=== PATIENT | male | born 1950 | race African-American/Black ===

== ENCOUNTER 2017-12-21 01:17 | Inpatient (IN) | payer MEDICARE, MEDICAID ==
[~2017-12-21] VITALS: Ht 167.6 cm; Wt 65.0 kg
[2017-12-21] VITALS (7 sets, daily range): BP systolic 117–151; BP diastolic 59–75; PULSE 74–90; RESP 16–18; TEMP 97.7–99.1; O2SAT 96–100
[~2017-12-21 01:17] MED LIST: AMIT150T PO; BLOOD GLUCOSE T1 TES; BRIL90TA PO; CARV12.52 PO; FREEMIS42; FURO40TA PO; GABA300C5 PO; Glucometer; HYDR-3533 PO; INSU-115; INSU100V SQ; LANTUS2P SQ; LISI-515 PO; PRAV40TA2 PO; [UNRECOGNIZED DRUG - OTHER]
[2017-12-21] MEDS ORDERED: PANTOPRAZOLE INJ 80 MG in SODIUM CHLORIDE 0.9% INJ 35 ML IV ONE (01:45)
[2017-12-21] MEDS ORDERED: SODIUM CHLOR 0.9% 1000 ML INJ 1,000 ML IV SCH (01:45)
[2017-12-21] MEDS ORDERED: PANTOPRAZOLE INJ 80 MG in SODIUM CHLORIDE 0.9% INJ 100 ML IV SCH (01:45)
--- NOTE | 2017-12-21 01:45 | PD ---
HPI Chief Complaint: Chest Pain Time Seen by Provider: 01:38 Travel History International Travel<30 days: Yes ([place]) Contact w/Intl Traveler<30days: Yes Name of Country Traveled to: [place] Traveled to known affect area: No History of Present Illness HPI The patient is a 67 year old male who presents to the [facility] emergency department with a history of diarrhea and abdominal cramping that began on Tuesday. Today he began to have bloody stool. He has had at least 6 episodes of bloody stool. The patient reports taking Brilinta related to a history of coronary artery disease and congestive heart failure. The patient has a poor appetite associated with this. The patient reports having intermittent nausea and vomiting reportedly twice during the entire episode with the last episode of vomiting yesterday morning. He denies having any known fevers. He reports having chronic intermittent chest pain that is been no worse than usual. He denies having any shortness of breath. He denies having any significant cough or congestion. He denies having any sick contacts or recent antibiotic use. He traveled from [facility] yesterday. He denies having any urinary symptoms or neurologic symptoms. The patient's blood sugar has been difficult to control according to his family and has been as high as in the 500s-600s. He is reportedly on insulin. [facility] Past Medical History Narrative Medical The patient's past medical history is significant for diabetes mellitus, coronary artery disease, legal blindness, acid reflux, hyperlipidemia, congestive heart failure, hypertension. Cardiac Catheterization: Yes High Cholesterol: Yes Congestive Heart Failure: Yes Diabetes: Yes Patient Takes Glucophage: No Diminished Hearing: No GERD: Yes Hypertension: Yes Tetanus Vaccination: Unknown Influenza Vaccination: No Past Surgical History Narrative Surgical The patient's past surgical history is significant for having a cyst removed from his abdomen, he is unsure of where the cyst was, history of cardiac catheterization with stent placement, coronary artery bypass grafting. Abdominal Surgery: Yes (cyst removed) Coronary Artery Bypass Graft: Yes Coronary Stent: Yes Social History Alcohol Use: No Tobacco Use: No Substance Use: No Allergies-Medications (Allergen,Severity, Reaction): Coded Allergies: No Known Allergies (Unverified Allergy, Unknown, 12/21/17) Reported Meds & Prescriptions Reported Meds & Active Scripts Active Carvedilol 12.5 Mg Tab 12.5 Mg PO BID Gabapentin 300 Mg Cap 300 Mg PO BID Lisinopril 20 Mg Tab 20 Mg PO BID Lantus Inj (Insulin Glargine) 1,000 Unit/10 Ml Vial 30 Units SQ HS Reported Novolog Mix 70-30 FlexPen Inj (Insulin Aspart Protam-Asp 70-30 Inj) 300 Unit/3 Ml Pen 1 Units SQ Amitriptyline (Amitriptyline HCl) 150 Mg Tab 150 Mg PO HS Pravastatin 40 Mg Tab 40 Mg PO DAILY Furosemide 40 Mg Tab 40 Mg PO DAILY Brilinta (Ticagrelor) 90 Mg Tab 90 Mg PO BID Review of Systems Except as stated in HPI: all other systems reviewed are Neg General / Constitutional: No: Fever Eyes: No: Visual changes HENT: No: Headaches Cardiovascular: Positive: Chest Pain or Discomfort (Which his family reports is chronic), Dyspnea on exertion (Which his family reports is chronic) Respiratory: No: Shortness of Breath Gastrointestinal: Positive: Nausea, Vomiting, Diarrhea, Abdominal Pain, Hematochezia, Changes in Bowel Habits, Indigestion, Loss of Appetite, No: Hematemesis Genitourinary: No: Dysuria Musculoskeletal: No: Pain Skin: No Rash Neurologic: No: Weakness Psychiatric: No: Depression Endocrine: No: Polydipsia Hematologic/Lymphatic: No: Easy Bruising Physical Exam Narrative General: The patient is a well-developed well-nourished male in no acute distress. Head and Neck exam: Head is normocephalic atraumatic. Eyes: The patient is noted to have cataract overlying the right pupil. The patient is legally blind. Nose: Midline septum with pink mucous membranes Mouth: Dentition unremarkable. Moist mucus membranes. Posterior oropharynx is not erythematous. No tonsillar hypertrophy. Uvula midline. Airway patent. Neck: No palpable lymphadenopathy. No nuchal rigidity. No thyromegaly. Cardiovascular: Regular rate and rhythm without murmurs, gallops, or rubs. Lungs: Clear to auscultation bilaterally. No wheezes, rhonchi, or rales. Abdomen: Soft, with tenderness on palpation diffusely, however he reports that it is most prominent in the left lower quadrant of the abdomen. No point tenderness on palpation of her McBurney's point. Normal bowel sounds are audible. Negative Wheeler sign. No guarding, rebound, or rigidity. Extremities: No clubbing, cyanosis, or edema. 2+ pulses in all 4 extremities. No calf tenderness on palpation. Back: No costovertebral angle tenderness to palpation. Neurologic Exam: Grossly nonfocal. Skin Exam: No rash noted. Intact skin that is warm and dry. RECTAL EXAM: No masses or tenderness, stool is brown and mixed with blood. The Hemoccult testing was positive. Data Data Last Documented VS Vital Signs Date Time Temp Pulse Resp B/P (MAP) Pulse Ox O2 Delivery O2 Flow Rate FiO2 12/21/17 02:04 79 Room Air 12/21/17 01:23 99.1 18 123/59 (80) 98 Orders Orders Electrocardiogram (12/21/17 01:38) Complete Blood Count With Diff (12/21/17 01:38) Comprehensive Metabolic Panel (12/21/17 01:38) Creatine Kinase (Cpk) (12/21/17 01:38) Ckmb (Isoenzyme) Profile (12/21/17 01:38) Troponin I (12/21/17 01:38) B-Type Natriuretic Peptide (12/21/17 01:38) Prothrombin Time / Inr (Pt) (12/21/17 01:38) Act Partial Throm Time (Ptt) (12/21/17 01:38) Lipase (12/21/17 01:38) Urinalysis - C+S If Indicated (12/21/17 01:38) Magnesium (Mg) (12/21/17 01:38) Chest, Single Ap (12/21/17 01:38) Iv Access Insert/Monitor (12/21/17 01:38) Ecg Monitoring (12/21/17 01:38) Oximetry (12/21/17 01:38) Type And Screen (12/21/17 01:38) Pantoprazole Inj (Protonix Inj) (12/21/17 01:45) Pantoprazole Inj (Protonix Inj) (12/21/17 01:45) Sodium Chlor 0.9% 1000 Ml Inj (Ns 1000 M (12/21/17 01:45) Enteric Path (Stool) (12/21/17 03:26) C Diff Toxin Pcr (12/21/17 03:26) Stool Wbc (Leukocytes) (12/21/17 03:26) Piperacil-Tazo 3.375 Gm Premix (Zosyn 3. (12/21/17 03:30) Ct Abd/Pel W/O Iv Contrast (12/21/17 03:28) Lactic Acid Sepsis Protocol (12/21/17 03:44) Morphine Inj (Morphine Inj) (12/21/17 04:30) Prochlorperazine Inj (Compazine Inj) (12/21/17 04:30) Sodium Chlorid 0.9% 500 Ml Inj (Ns 500 M (12/21/17 04:30) Blood Culture (12/21/17 04:48) Potassium Chloride (Kcl) (12/21/17 05:45) Metronidazole 500 Mg Inj (Flagyl 500 Mg (12/21/17 06:45) Admit Order (Ed Use Only) (12/21/17 06:45) Admit To Inpatient (12/21/17 ) Vital Signs (Adult) Q4H (12/21/17 06:43) Activity Oob With Assistance (12/21/17 06:43) Diet Clear Liquid (12/21/17 Breakfast) Sodium Chlor 0.9% 1000 Ml Inj (Ns 1000 M (12/21/17 06:43) Sodium Chloride 0.9% Flush (Ns Flush) (12/21/17 06:45) Sodium Chloride 0.9% Flush (Ns Flush) (12/21/17 09:00) Acetaminophen (Tylenol) (12/21/17 06:45) Resp Oxygen Fabio C Titrat 1-4 L (12/21/17 ) Scd Bilateral/Knee High LILLIANA.BID (12/21/17 06:43) Naloxone Inj (Narcan Inj) (12/21/17 06:45) Magnesium Hydroxide Liq (Milk Of Magnesi (12/21/17 06:45) Sennosides (Senokot) (12/21/17 06:45) Bisacodyl Supp (Dulcolax Supp) (12/21/17 06:45) Lactulose Liq (Lactulose Liq) (12/21/17 06:45) Inpatient Certification (12/21/17 ) Cryptosporidium (Stool) (12/21/17 06:43) Giardia Antigen (Stool) (12/21/17 06:43) Rotavirus Ag Detection (Stool) (12/21/17 06:43) Stool Ova And Parasite Screen (12/21/17 06:43) Stool Wbc (Leukocytes) (12/21/17 06:43) Ondansetron Odt (Zofran Odt) (12/21/17 07:00) Labs Laboratory Tests Test 12/21/17 02:00 12/21/17 04:30 White Blood Count 9.0 TH/MM3 Red Blood Count 4.51 MIL/MM3 Hemoglobin 12.7 GM/DL Hematocrit 37.5 % Mean Corpuscular Volume 83.1 FL Mean Corpuscular Hemoglobin 28.2 PG Mean Corpuscular Hemoglobin Concent 33.9 % Red Cell Distribution Width 14.1 % Platelet Count 223 TH/MM3 Mean Platelet Volume 9.6 FL CBC Comment AUTO DIFF Differential Total Cells Counted 100 Neutrophils % (Manual) 7 % Band Neutrophils % 26 % Lymphocytes % 40 % Monocytes % 20 % Eosinophils % 3 % Basophils % 2 % Neutrophils # (Manual) 3.2 TH/MM3 Metamyelocytes 2 % Nucleated Red Blood Cells 1 /100 WBC Differential Comment FINAL DIFF MANUAL Atypical Lymphocytes % Toxic Granulation 1+ Dohle Bodies PRESENT Platelet Estimate NORMAL Platelet Morphology Comment NORMAL Red Cell Morphology Comment NORMAL Prothrombin Time 10.4 SEC Prothromb Time International Ratio 1.0 RATIO Activated Partial Thromboplast Time 32.0 SEC Blood Urea Nitrogen 35 MG/DL Creatinine 2.86 MG/DL Random Glucose 159 MG/DL Total Protein 6.6 GM/DL Albumin 2.6 GM/DL Calcium Level 7.8 MG/DL Magnesium Level 2.2 MG/DL Alkaline Phosphatase 84 U/L Aspartate Amino Transf (AST/SGOT) 15 U/L Alanine Aminotransferase (ALT/SGPT) 20 U/L Total Bilirubin 0.7 MG/DL Sodium Level 134 MEQ/L Potassium Level 3.2 MEQ/L Chloride Level 104 MEQ/L Carbon Dioxide Level 18.9 MEQ/L Anion Gap 11 MEQ/L Estimat Glomerular Filtration Rate 27 ML/MIN Total Creatine Kinase 62 U/L Troponin I LESS THAN 0.02 NG/ML B-Type Natriuretic Peptide 46 PG/ML Lipase 23 U/L Lactic Acid Level 1.6 mmol/L MDM Medical Decision Making Medical Screen Exam Complete: Yes Emergency Medical Condition: Yes Medical Record Reviewed: Yes Differential Diagnosis Ischemic bowel, versus infectious colitis, versus diverticulitis, versus DKA, versus diverticulosis, versus AVM malformation, versus hemorrhoid Narrative Course During the course of the patient's emergency department visit, the patient's history, examination, and differential diagnosis were reviewed with the patient. The patient was placed on a security monitor with oximetry and frequent blood pressure monitoring. The patient had IV access obtained and blood work sent for analysis. The patient had a EKG done on arrival. The patient's EKG shows a sinus rhythm heart rate of 80, QRS duration 89 ms, QTC 458 ms. The patient has left axis deviation noted. T-wave inversions in lead I, aVL. No acute ST segment elevation is noted. The patient was initially provided normal saline IV fluids, Protonix 80 mg IV followed by a Protonix drip. Due to a concern about an infectious process the patient was given Zosyn 3.375 g IV. The lactic acid was sent prior to antibiotics being administered, and blood cultures were also done. Stool studies were ordered. The patient's studies were reviewed and remarkable for A white count of 9, hemoglobin 12.7, platelets 223 with bands that are 26, monocytes 20, toxic granulation present. CMP is remarkable for a sodium of 134, potassium 3.2 which was supplemented orally, CO2 18.9, BUN 35, creatinine 2.86 which may be related to dehydration, no prior renal studies are available for comparison, glucose 159, cardiac enzymes within normal limits, BNP 46, lipase 23, count lactic acid 1.6, PT 10.4, PTT 32. The chest x-ray showed no evidence of acute cardiopulmonary disease. CT scan of the abdomen and pelvis shows nonspecific nonobstructive bowel gas pattern. There is circumferential wall thickening involving portions of the transverse colon which could indicate colitis. Cholelithiasis with no gallbladder wall thickening or inflammatory changes noted. Given the colitis on CAT scan Flagyl was also added to the patient's antibiotic regimen. The patient's results were discussed with the patient, including the plan of care. I explained that further testing and/ or monitoring is indicated based on the patient's history, examination, and/ or laboratory findings. Therefore, I recommended admission for additional evaluation. The patient expressed understanding and was agreeable with this plan. The patient was admitted to the hospital in guarded condition and sent to a bed under the care of the [facility]. [facility] Point of Care Internal Pos. & Neg. Controls: Passed Fecal Specimen Occult Blood: Positive Physician Communication Physician Communication The patient's case including history, pertinent physical examination findings, and laboratory studies were discussed with Dr. Enciso. It was agreed that the patient would be admitted to the [facility]. Diagnosis Primary Impression: Colitis Admitting Information Admitting Physician Requests: Admit Joanie Garcia MD December 21, 2017 01:45
--- NOTE | 2017-12-21 02:30 | RADRPT ---
EXAM DATE: 12/21/2017 2:21 AM EDT AGE/SEX: 67 years / Male INDICATIONS: Chest pain. CLINICAL DATA: This is the patient's initial encounter. Patient reports that signs and symptoms have been present for 1 day and indicates a pain score of 5/10. MEDICAL/SURGICAL HISTORY: Cardiovascular disease. CABG. COMPARISON: No prior [facility] exams available for comparison. FINDINGS: A single AP view of the chest demonstrates the lungs to be symmetrically aerated without evidence of mass, infiltrate or effusion. The cardiomediastinal contours are unremarkable. Osseous structures a re status post median sternotomy. CONCLUSION: No acute cardiopulmonary disease. Electronically signed by: Matthew Avalos MD 12/21/2017 2:29 AM EDT
[2017-12-21 02:45] LABS: HEMATOCRIT 37.5 % (39.0-51.0); HEMOGLOBIN 12.7 GM/DL (13.0-17.0); MEAN CELL VOLUME 83.1 FL (80.0-100.0); MEAN CORPUSCULAR HEMOGLOBIN 28.2 PG (27.0-34.0); MEAN CORPUSCULAR HGB CONC 33.9 % (32.0-36.0); MEAN PLATELET VOLUME 9.6 FL (7.0-11.0); PLATELET COUNT 223 TH/MM3 (150-450); RED BLOOD COUNT 4.51 MIL/MM3 (4.50-5.90); RED CELL DISTRIBUTION WIDTH 14.1 % (11.6-17.2)
[2017-12-21 02:52] LABS: PROTHROMBIN TIME - PATIENT 10.4 SEC (9.8-11.6)
[2017-12-21 03:04] LABS: ALBUMIN 2.6 GM/DL (3.4-5.0); AST (GOT) 15 U/L (15-37); BICARBONATE 18.9 MEQ/L (21.0-32.0); BLOOD UREA NITROGEN 35 MG/DL (7-18); CALCIUM 7.8 MG/DL (8.5-10.1); CHLORIDE 104 MEQ/L (98-107); CREATININE 2.86 MG/DL (0.60-1.30); GLOMERULAR FILTRATION RATE 27 ML/MIN (>89); GLUCOSE,RANDOM 159 MG/DL (74-106); MAGNESIUM 2.2 MG/DL (1.5-2.5); SODIUM (NA) 134 MEQ/L (136-145)
[2017-12-21 03:11] LABS: ALKALINE PHOSPHATASE 84 U/L (45-117); ALT (GPT) 20 U/L (12-78); TOTAL BILIRUBIN ADULT 0.7 MG/DL (0.2-1.0); TOTAL PROTEIN 6.6 GM/DL (6.4-8.2); TROPONIN I LESS THAN 0.02 NG/ML (0.02-0.05)
[2017-12-21] MEDS ORDERED: NOVOINJ2 SQ (03:14)
[2017-12-21] MEDS ORDERED: PIPERACIL-TAZO 3.375 GM PREMIX 50 ML IV ONE (03:30)
[2017-12-21 03:33] LABS: BANDS 26 % (0-6); BASOPHILS 2 % (0-2); CORRECTED NUCLEATED RBC 1 /100 WBC (0-0); LYMPHOCYTES 40 % (9-44); METAMYELOCYTES 2 % (0-1); MONOCYTES 20 % (0-8); NEUTROPHIL # MANUAL DIFF 3.2 TH/MM3 (1.8-7.7); NUCLEATED RED BLOOD CELL 1 (0-0); POLYS (SEG NEUTROPHILS) 7 % (16-70)
[2017-12-21 03:34] LABS: DOHLE BODIES PRESENT (NONE SEEN); TOXIC GRANULATION 1+ (NORMAL)
[2017-12-21] MEDS ORDERED: PROCHLORPERAZINE INJ 10 MG/2 ML VIAL IV PUSH ONE (04:30)
[2017-12-21] MEDS ORDERED: MORPHINE SULFATE 4 MG/ML INJ IV PUSH ONE (04:30)
[2017-12-21] MEDS ORDERED: SODIUM CHLORID 0.9% 500 ML INJ 500 ML IV ONE (04:30)
[2017-12-21] MEDS ORDERED: POTASSIUM CHLORIDE 20 MEQ CONTROLLED RELEASE TAB PO ONE ×2 (05:45→10:15)
--- NOTE | 2017-12-21 06:35 | RADRPT ---
EXAM DATE: 12/21/2017 4:34 AM EDT AGE/SEX: 67 years / Male INDICATIONS: Abdomen pain. CLINICAL DATA: This is the patient's initial encounter. Patient reports that signs and symptoms have been present for 1 day and indicates a pain score of 5/10. MEDICAL/SURGICAL HISTORY: Hypertension. Congestive heart failure. Cardiovascular disease. Non e. RADIATION DOSE: 7.11 CTDI (mGy) COMPARISON: No prior [facility] exams available for comparison. TECHNIQUE: Multiple contiguous axial images were obtained through the abdomen. Images were obtained using multiple row detector helical technique. Using dose reduction techniques, radiation dose was ke pt as low as reasonably achievable to obtain optimal diagnostic quality images. FINDINGS: Lower Lungs: The visualized lower lungs are clear. Status post median sternotomy. Liver: The liver has a homogeneous density without space-occupying lesion. There is no dilation of th e biliary tree. There are faint calcified gallstones layering dependently in the gallbladder. There i s no gallbladder wall thickening or inflammatory change. Spleen: Homogeneous density without enlargement. Pancreas: Unremarkable without mass or calcification. Kidneys: Normal in size and shape. No evidence of mass or hydronephrosis. Adrenal Glands: Unremarkable. Aorta: The aorta and proximal iliac vessels are grossly unremarkable without aneurysmal dilation. Bowel/Mesentery: No oral contrast was given limiting the sensitivity of the exam. There are multiple loops of nondilated air-containing small bowel with several small air-fluid levels. There is apparent circumferential wall thickening involving portions of the transverse colon which measure up to appro ximately 1 cm in greatest diameter. There is no free air or fluid. Abdominal Wall: Intact. Retroperitoneum: No evidence of adenopathy in the retrocrural, para-aortic, or deep pelvic regions. Bladder: Contours are smooth. Reproductive Organs: No abnormal masses or calcifications seen. Inguinal: The inguinal region is unremarkable without evidence of adenopathy. Bony Structures: Unremarkable. CONCLUSION: 1. Nonspecific, nonobstructive bowel gas pattern. There is circumferential wall thickening involving portions of the transverse colon which could indicate colitis. 2. Cholelithiasis with no gallbladder wall thickening or inflammatory change. Electronically signed by: Matthew Avalos MD 12/21/2017 6:33 AM EDT
[2017-12-21] MEDS: SODIUM CHLOR 0.9% 1000 ML INJ 1,000 ML IV SCH ×2 (06:43→16:12)
[2017-12-21] MEDS ORDERED: SENNOSIDES 8.6 MG TAB PO PRN (06:45)
[2017-12-21] MEDS ORDERED: BISACODYL 10 MG SUPP RECTAL PRN (06:45)
[2017-12-21] MEDS ORDERED: SODIUM CHLORIDE 0.9% FLUSH 10 ML FLUSH IV FLUSH PRN (06:45)
[2017-12-21] MEDS ORDERED: LACTULOSE SYRUP 20 GM/30 ML CUP PO PRN (06:45)
[2017-12-21] MEDS ORDERED: metroNIDAZOLE 500 MG INJ 100 ML IV ONE (06:45)
[2017-12-21] MEDS ORDERED: NALOXONE HCL 0.4 MG/ML AMP IV PUSH PRN ×2 (06:45→10:00)
[2017-12-21] MEDS ORDERED: MAGNESIUM HYDROXIDE SUSP 30 ML CUP PO PRN (06:45)
[2017-12-21] MEDS ORDERED: ONDANSETRON ODT 4 MG TAB PO PRN (07:00)
[2017-12-21] MEDS: SODIUM CHLORIDE 0.9% FLUSH 10 ML FLUSH IV FLUSH SCH ×2 (08:54→22:12)
[2017-12-21 09:05] LABS: BACTERIA, URINE RARE /hpf; BILIRUBIN, URINE NEG (NEG); BLOOD, URINE TRACE (NEG); GLUCOSE,URINE TRACE mg/dL (NEG); HYALINE CAST, URINE 5 /lpf (RARE); KETONE, URINE NEG (NEG); NITRITE,URINE NEG (NEG); PH, URINE 5.5 (5.0-8.5); SQUAMOUS EPITHELIAL CELL URINE 1 /hpf (0-5); URINE COLOR YELLOW (YELLW/STRAW); URINE LEUKOCYTE ESTERASE NEG (NEG)
--- NOTE | 2017-12-21 09:32 | HHI.HP ---
[facility] Service Family Medicine Primary Care Physician Gareth Tello MD Admission Diagnosis Colitis Diagnoses: International Travel<30 Days: Yes ([place]) Contact w/Intl Traveler<30days: Yes Name of Country Traveled to: [facility] Known Affected Area: No History of Present Illness This is a pleasant 67-year-old male from [facility] with past medical history of dilated cardiomyopathy, CABG in 2016, PVD, hypertension, DM, and hyperlipidemia presents to the ED for lower abdominal pain and diarrhea. Accompanied by son and daughter, who provides most of the history. Reports that patient recently traveled back from [facility] yesterday. States that patient started getting sick while he was in [facility]. Patient states that he started having chest pain last Tuesday, 5 days ago. He describes it as aching, intermittent, lasting 5-10 mintues, located right, radiating to both arms. He denies jaw pain, palpitations, and shortness of breath. He states that this chest pain is not similar to his AR in the past. Patient also started having diarrhea 4 days ago. He reports greater than 3-4 bowel movements with gross dark blood. Associated with intermittent, 8/10, generalized abdominal pain. Describes it as "gas-like pain and cramping", relieved with passing gas. He also endorses nausea and 2 episodes nonbloody, nonbilious vomiting. Appetite has been decreased. Patient is able to tolerate soup and water. He denies sick contacts , weight loss, fevers, recent antibiotic use, dysuria, rash, headaches, and URI symptoms. Patient states that he does have never had a colonoscopy done. Patient reports being compliant with all his medications. Daughter reports that his sugars were in the 500s 3 days ago. Patient is currently on insulin. (Rachell Branham MD R1) History of Present Illness Very pleasant 67-year-old male who presents to the hospital with 4 days of abdominal distention/cramping abdominal pain, diarrhea and bloody bowel movements. He has been in [facility] for the last 6-7 months, returning to [place] 2 days ago. While in [facility], 4 days ago he began having cramping abdominal pain followed by watery diarrhea that turned bloody with what is described as bright red blood. There was associated nausea and bloating with this, however he specifically denies fevers or chills, denies appetite change, denies weight change, denies recent antibiotic use, and denies melena. He also denies any new foods or changes in his diet, he denies any sick contacts, he denies any travel outside of [facility] or [place]. (Gareth Tello MD) Review of Systems Constitutional: COMPLAINS OF: Chills, Change in appetite, DENIES: Fever Eyes: DENIES: Vision loss Ears, nose, mouth, throat: DENIES: Throat pain, Running Nose Respiratory: DENIES: Cough, Sputum production, Shortness of breath Cardiovascular: COMPLAINS OF: Chest pain, Syncope, DENIES: Palpitations, Lower Extremity Edema Gastrointestinal: COMPLAINS OF: Abdominal pain, Bloody stools, Diarrhea, Nausea , Vomiting Genitourinary: DENIES: Dysuria Musculoskeletal: COMPLAINS OF: Muscle aches Integumentary: DENIES: Rash Hematologic/lymphatic: DENIES: Lymphadenopathy Neurologic: DENIES: Headache (Rachell Branham MD R1) Past Family Social History Past Medical History CAD with dilated cardiomyopathy Peripheral Vascular Disease Hypertension Diabetes Mellitus Hyperlipidemia Claudication Past Surgical History CABG - 2016 with KAMINSKI to LAD, SVG to diagonal, SVG to intramyocardial obtuse marginal, SVG to posterior descending Cardiac catheterization with stent placement x4 Peripheral angiogram with stent placement in both legs for claudication 2-D echocardiogram 01/01/16: Moderately reduced LV function with EF approximately 30-35%. Stage IV diastolic dysfunction. Mild mitral, tricuspid, and pulmonic valve regurgitation. Mild pulmonary hypertension with RVSP estimated at 51 mmHg. (Rachell Branham MD R1) Allergies: Coded Allergies: No Known Allergies (Unverified Allergy, Unknown, 12/21/17) Family History Father: no significant history Mother: no significant history Siblings: none Children: healthy Social History Work history: unemployed, care for by children Tobacco: Never smoker Alcohol: None Illicit drug use: none (Rachell Branham MD R1) Physical Exam Vital Signs Vital Signs Date Time Temp Pulse Resp B/P (MAP) Pulse Ox O2 Delivery O2 Flow Rate FiO2 12/21/17 08:00 90 16 131/74 (93) 97 Room Air 12/21/17 07:27 79 17 117/62 (80) 99 Room Air 12/21/17 02:04 79 Room Air 12/21/17 01:23 99.1 82 18 123/59 80 98 Physical Exam GENERAL: Pleasant male, fatigue, in no acute distress SKIN: No rashes, ecchymoses or lesions. Cool and dry. HEAD: Atraumatic. Normocephalic. No temporal or scalp tenderness. EYES: Pupils equal round and reactive. Pale or conjunctivae noted extraocular motions intact. No scleral icterus. No injection or drainage. ENT: Nose without bleeding, purulent drainage or septal hematoma. Throat without erythema, tonsillar hypertrophy or exudate. Uvula midline. Airway patent. NECK: Trachea midline. No JVD or lymphadenopathy. Supple, nontender, no meningeal signs. CARDIOVASCULAR: Regular rate and rhythm without murmurs, gallops, or rubs. RESPIRATORY: Clear to auscultation. Breath sounds equal bilaterally. No wheezes , rales, or rhonchi. GASTROINTESTINAL: Abdomen soft, moderately distended, moderate tenderness to lower quadrant. No hepato-splenomegaly, or palpable masses. No guarding. No rebound tenderness. Normal bowel sounds. Negative McBurney's and Wheeler's sign. MUSCULOSKELETAL: Extremities without clubbing, cyanosis, or edema. No joint tenderness, effusion, or edema noted. No calf tenderness. Negative Homans sign bilaterally. NEUROLOGICAL: Awake and alert. Cranial nerves II through XII intact. Motor and sensory grossly within normal limits. Five out of 5 muscle strength in all muscle groups. Normal speech. Laboratory Laboratory Tests Test 12/21/17 02:00 12/21/17 04:30 12/21/17 08:45 White Blood Count 9.0 Red Blood Count 4.51 Hemoglobin 12.7 Hematocrit 37.5 Mean Corpuscular Volume 83.1 Mean Corpuscular Hemoglobin 28.2 Mean Corpuscular Hemoglobin Concent 33.9 Red Cell Distribution Width 14.1 Platelet Count 223 Mean Platelet Volume 9.6 CBC Comment AUTO DIFF Differential Total Cells Counted 100 Neutrophils % (Manual) 7 Band Neutrophils % 26 Lymphocytes % 40 Monocytes % 20 Eosinophils % 3 Basophils % 2 Neutrophils # (Manual) 3.2 Metamyelocytes 2 Nucleated Red Blood Cells 1 Differential Comment FINAL DIFF MANUAL Atypical Lymphocytes Toxic Granulation 1+ Dohle Bodies PRESENT Platelet Estimate NORMAL Platelet Morphology Comment NORMAL Red Cell Morphology Comment NORMAL Prothrombin Time 10.4 Prothromb Time International Ratio 1.0 Activated Partial Thromboplast Time 32.0 Blood Urea Nitrogen 35 Creatinine 2.86 Random Glucose 159 Total Protein 6.6 Albumin 2.6 Calcium Level 7.8 Magnesium Level 2.2 Alkaline Phosphatase 84 Aspartate Amino Transf (AST/SGOT) 15 Alanine Aminotransferase (ALT/SGPT) 20 Total Bilirubin 0.7 Sodium Level 134 Potassium Level 3.2 Chloride Level 104 Carbon Dioxide Level 18.9 Anion Gap 11 Estimat Glomerular Filtration Rate 27 Total Creatine Kinase 62 Troponin I LESS THAN 0.02 B-Type Natriuretic Peptide 46 Lipase 23 Lactic Acid Level 1.6 Urine Color YELLOW Urine Turbidity HAZY Urine pH 5.5 Urine Specific [place] 1.012 Urine Protein 30 Urine Glucose (UA) TRACE Urine Ketones NEG Urine Occult Blood TRACE Urine Nitrite NEG Urine Bilirubin NEG Urine Urobilinogen LESS THAN 2.0 Urine Leukocyte Esterase NEG Urine RBC 1 Urine WBC 3 Urine Squamous Epithelial Cells 1 Urine Bacteria RARE Urine Hyaline Casts 5 Microscopic Urinalysis Comment CULT NOT INDICATED Date/Time Source Procedure Growth Status 12/21/17 06:40 Blood Peripheral Aerobic Blood Culture Pending Received 12/21/17 06:40 Blood Peripheral Anaerobic Blood Culture Pending Received 12/21/17 08:45 Stool Stool Cryptosporidium Exam Pending Received 12/21/17 08:45 Stool Stool Stool Pus (KIAN) Pending Received 12/21/17 08:45 Stool Stool Giardia Antigen (KIAN) Pending Received (Rachell Branham MD R1) Physical Exam General: Comfortably lying in bed in no obvious distress Skin: No rashes or obvious lesions HEENT: Normocephalic atraumatic, PERRLA, mucous membranes moist CV: Regular rate and rhythm without murmur Respiratory: Clear to auscultation bilaterally GI: Abdomen diffusely distended with tenderness in bilateral lower quadrants and suprapubic region. No obvious hepatosplenomegaly. No rebound tenderness, mild guarding. MSK: Extremities without clubbing cyanosis or edema (Gareth Tello MD) Result Diagram: 12/21/17 0200 12/21/17 0200 Septic Shock Reassessment Septic shock perfusion: reassessment completed (Rachell Branham MD R1) Caprini VTE Risk Assessment Caprini VTE Risk Assessment: Mod/High Risk (score >= 2) Caprini Risk Assessment Model Point Value = 1 Point Value = 2 Point Value = 3 Point Value = 5 Age 41-60 Minor surgery BMI > 25 kg/m2 Swollen legs Varicose veins or History of unexplained or recurrent spontaneous Oral contraceptives or hormone replacement Sepsis (< 1 month) Serious lung disease, including pneumonia (< 1 month) Abnormal pulmonary function Acute myocardial infarction Congestive heart failure (< 1 month) History of inflammatory bowel disease Medical patient at bed rest Age 61-74 Arthroscopic surgery Major open surgery (> 45 min) Laparoscopic surgery (> 45 min) Malignancy Confined to bed (> 72 hours) Immobilizing plaster cast Central venous access Age >= 75 History of VTE Family history of VTE Factor V Leiden Prothrombin [id number] Lupus anticoagulant Anticardiolipin antibodies Elevated serum homocysteine Heparin-induced thrombocytopenia Other congenital or acquired thrombophilia Stroke (< 1 month) Elective arthroplasty Hip, pelvis, or leg fracture Acute spinal cord injury (< 1 month) Prophylaxis Regimen Total Risk Factor Score Risk Level Prophylaxis Regimen 0-1 Low Early ambulation 2 Moderate Order ONE of the following: *Sequential Compression Device (SCD) *Heparin 5000 units SQ BID 3-4 Higher Order ONE of the following medications: *Heparin 5000 units SQ TID *Enoxaparin/Lovenox 40 mg SQ daily (WT < 150 kg, CrCl > 30 mL/min) *Enoxaparin/Lovenox 30 mg SQ daily (WT < 150 kg, CrCl > 10-29 mL/min) *Enoxaparin/Lovenox 30 mg SQ BID (WT < 150 kg, CrCl > 30 mL/min) AND/OR *Sequential Compression Device (SCD) 5 or more Highest Order ONE of the following medications: *Heparin 5000 units SQ TID (Preferred with Epidurals) *Enoxaparin/Lovenox 40 mg SQ daily (WT < 150 kg, CrCl > 30 mL/min) *Enoxaparin/Lovenox 30 mg SQ daily (WT < 150 kg, CrCl > 10-29 mL/min) *Enoxaparin/Lovenox 30 mg SQ BID (WT < 150 kg, CrCl > 30 mL/min) AND *Sequential Compression Device (SCD) (Rachell Brnaham MD R1) Assessment and Plan Assessment and Plan 67-year-old male from [facility] with past medical history of dilated cardiomyopathy , CABG in 2016, PVD, hypertension, DM, and hyperlipidemia presents to the ED for lower abdominal pain and diarrhea. Admitted for fluids and IV antibiotics. Code Status Full code (Rachell Branham MD R1) Problem List: (1) Colitis, acute ICD Codes: K52.9 - Noninfective gastroenteritis and colitis, unspecified Plan: 4-5 day history of abdominal pain and diarrhea. DDx: Colitis versus diverticulitis versus mesenteric ischemia versus gastroenteritis vs cholecystitis vs colon cancer vs PUD Labs & Imaging: Afebrile Hb/Hct 12.7/37.5 WBC of 9 Lactic acid of 1.6 Blood cultures pending Cryptosporidium, Giardia, rotavirus, stool WBC, enteric cath, stool ova and parasites C.diff pending Abdominal/pelvis CT demonstrates nonspecific, nonobstructive bowel gas pattern. There is a cervical pharyngeal wall thickening involving portions of the transverse colon which could indicate colitis. 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 Antibiotics: s/p Zosyn 3.375 GM once and Flagyl 500mg IV once in the ED Continue Flagyl 500mg IV q8h Continue Ciprofloxacin 400mg IV q12h, to be renally dosed by pharmacy GI consulted, appreciate recommendations Clear liquid diet NS 100mls/hr Zofran as needed for nausea [place] 5mg q4h for pain 1-5 morphine 2mg IV push q4h pain 6-10 (2) SHAE (acute kidney injury) ICD Codes: N17.9 - Acute kidney failure, unspecified Plan: BUN of 35 with creatinine of 2.86 on admission SHAE most likely due to dehydration and hypoperfusion Continue with IV fluids 100mls/hr Avoid nephrotoxic agents (3) Coronary artery disease ICD Codes: I25.10 - Atherosclerotic heart disease of [place] coronary artery without angina pectoris Status: Acute Plan: Held home Ticagrelor due to bloody diarrhea and anemia Troponin less than 0.02, EKG sinus rhythm, no ST changes Continue to trend troponin and EKG x 2 Echo with 2D dopppler ordered (4) Anemia ICD Codes: D64.9 - Anemia, unspecified Plan: Hb/Hct 12.7/37.5 Continue to trend H&H Transfuse if < 7 (5) Hypokalemia ICD Codes: E87.6 - Hypokalemia Plan: Potassium of 3.2 on admission Replace orally (6) Diabetes mellitus ICD Codes: E11.9 - Type 2 diabetes mellitus without complications Plan: Reports uncontrolled blood sugars at home, ranging in the 500s Held home insulin Low sliding scale A1c ordered (7) Hypertension ICD Codes: I10 - Essential (primary) hypertension Status: Acute Plan: Held home lisinopril and furosemide due to SHAE Continue carvedilol 12.5 mg twice daily Clonidine 0.1 mg as needed for BP>180/100 (8) Hyperlipidemia ICD Codes: E78.5 - Hyperlipidemia, unspecified Status: Acute Plan: Continue pravastatin 40 mg p.o. daily (9) Depression ICD Codes: F32.9 - Major depressive disorder, single episode, unspecified Plan: Amitriptyline 150mg PO HS (10) Nutrition, metabolism, and development symptoms ICD Codes: R63.8 - Other symptoms and signs concerning food and fluid intake Plan: Diet: Clear liquids Fluids:100mls/hr Vitals every 4, monitor I's and O's, telemetry (Rachell Branham MD R1) Problem List: (1) Colitis, acute ICD Codes: K52.9 - Noninfective gastroenteritis and colitis, unspecified Plan: 4-5 day history of abdominal pain and diarrhea. DDx: Colitis versus diverticulitis versus mesenteric ischemia versus gastroenteritis vs cholecystitis vs colon cancer vs PUD Labs & Imaging: Afebrile Hb/Hct 12.7/37.5 WBC of 9 Lactic acid of 1.6 Blood cultures pending Cryptosporidium, Giardia, rotavirus, stool WBC, enteric cath, stool ova and parasites C.diff pending Abdominal/pelvis CT demonstrates nonspecific, nonobstructive bowel gas pattern. There is a cervical pharyngeal wall thickening involving portions of the transverse colon which could indicate colitis. 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 Antibiotics: s/p Zosyn 3.375 GM once and Flagyl 500mg IV once in the ED Continue Flagyl 500mg IV q8h Continue Ciprofloxacin 400mg IV q12h, to be renally dosed by pharmacy GI consulted, appreciate recommendations Clear liquid diet NS 100mls/hr Zofran as needed for nausea [place] 5mg q4h for pain 1-5 morphine 2mg IV push q4h pain 6-10 (2) SHAE (acute kidney injury) ICD Codes: N17.9 - Acute kidney failure, unspecified Plan: BUN of 35 with creatinine of 2.86 on admission SHAE most likely due to dehydration and hypoperfusion Continue with IV fluids 100mls/hr Avoid nephrotoxic agents (3) Coronary artery disease ICD Codes: I25.10 - Atherosclerotic heart disease of [place] coronary artery without angina pectoris Status: Acute Plan: Held home Ticagrelor due to bloody diarrhea and anemia Troponin less than 0.02, EKG sinus rhythm, no ST changes Continue to trend troponin and EKG x 2 Echo with 2D dopppler ordered (4) Anemia ICD Codes: D64.9 - Anemia, unspecified Plan: Hb/Hct 12.7/37.5 Continue to trend H&H Transfuse if < 7 (5) Hypokalemia ICD Codes: E87.6 - Hypokalemia Plan: Potassium of 3.2 on admission Replace orally (6) Diabetes mellitus ICD Codes: E11.9 - Type 2 diabetes mellitus without complications Plan: Reports uncontrolled blood sugars at home, ranging in the 500s Held home insulin Low sliding scale A1c ordered (7) Hypertension ICD Codes: I10 - Essential (primary) hypertension Status: Acute Plan: Held home lisinopril and furosemide due to SHAE Continue carvedilol 12.5 mg twice daily Clonidine 0.1 mg as needed for BP>180/100 (8) Hyperlipidemia ICD Codes: E78.5 - Hyperlipidemia, unspecified Status: Acute Plan: Continue pravastatin 40 mg p.o. daily (9) Depression ICD Codes: F32.9 - Major depressive disorder, single episode, unspecified Plan: Amitriptyline 150mg PO HS (10) Nutrition, metabolism, and development symptoms ICD Codes: R63.8 - Other symptoms and signs concerning food and fluid intake Plan: Diet: Clear liquids Fluids:100mls/hr Vitals every 4, monitor I's and O's, telemetry (Gareth Tello MD) Physician Certification 2 Midnight Certification Type: Admission for Inpatient Services Order for Inpatient Services The services are ordered in accordance with Medicare regulations or non- Medicare payer requirements, as applicable. In the case of services not specified as inpatient-only, they are appropriately provided as inpatient services in accordance with the 2-midnight benchmark. Estimated LOS (days): 2 2 days is the estimated time the patient will need to remain in the hospital, assuming treatment plan goals are met and no additional complications. Post-Hospital Plan: Home (Rachell Branham MD R1) 2 Midnight Certification Type: Admission for Inpatient Services Post-Hospital Plan: Not yet determined (Gareth Tello MD) Rachell Branham MD R1 December 21, 2017 09:32 Gareth Tello MD December 21, 2017 12:51
[2017-12-21] MEDS ORDERED: ACETAMINOPHEN 325 MG TAB PO PRN (10:00)
[2017-12-21] MEDS ORDERED: GLUCAGON 1 MG/ML VIAL OTHER PRN (10:00)
[2017-12-21] MEDS ORDERED: DEXTROSE 50% IN WATER 50 ML VIAL(D50) IV PUSH PRN (10:00)
[2017-12-21] MEDS ORDERED: CIPROFLOXACIN 400 MG PREMIX 200 ML IV SCH (11:00)
[2017-12-21] MEDS: PRAVASTATIN SOD 40 MG TAB PO SCH (11:00)
[2017-12-21] MEDS ORDERED: LISINOPRIL 20 MG TAB PO SCH (11:00)
[2017-12-21] MEDS: INSULIN ASPART SUPPLEMENTAL SCALE SQ SCH ×3 (11:58→21:00)
[2017-12-21] MEDS: CARVEDILOL 12.5 MG TAB PO SCH ×2 (12:00→21:55)
[2017-12-21 13:15] LABS: HEMATOCRIT 34.8 % (39.0-51.0)
--- NOTE | 2017-12-21 13:15 | PD.CONS ---
HPI History of Present Illness This is a 67 year old M with PMH significant for dilated cardiomyopathy, CABG in 2016, PVD, HTN, DM, and hyperlipidemia who presented to the ER yesterday with complaints of lower abdominal pain and diarrhea. Pt states diarrhea began four days ago, initially just liquid stool but for the past two days has been mostly blood, seven episodes yesterday and three so far today. He reports associated lower abdominal pain, constant, described as "gas pain", worse with BMs. Also having nausea and vomiting, multiple episodes of emesis, last episode was yesterday. Denies hematemesis and coffee ground emesis. Per pts daughter he has been losing weight recently, unsure of exactly how much or over what period of time, states he has not had much of an appetite. Also reports fevers, resolved since yesterday. Reports occasional acid reflux, takes OTC medication with good relief. Of note, returned from [facility] yesterday after a seven month vacation. Denies recent antibiotics. Has never had EGD or colonoscopy. Denies history of GIB. Of note, on Brilinta, last dose was yesterday morning. Also admits to occasional Ibuprofen. Denies ETOH and smoking. (Jaylene Rowe) PFSH Past Medical History Dilated cardiomyopathy PVD HTN DM Hyperlipidemia Past Surgical History CABG- 2016 Cardiac stent x 4 Abdominal surgery for ? cyst removal Stent placement in both legs for claudication (Jaylene Rowe) Coded Allergies: No Known Allergies (Unverified Allergy, Unknown, 12/21/17) Social History Denies ETOH and smoking (Jaylene Rowe) Review of Systems Gastrointestinal: COMPLAINS OF: Abdominal pain, Bloody stools, Diarrhea, Nausea , Vomiting, Heartburn, DENIES: Hematemesis (Jaylene Rowe) GI Exam Vitals I&O Vital Signs Date Time Temp Pulse Resp B/P (MAP) Pulse Ox O2 Delivery O2 Flow Rate FiO2 12/21/17 12:04 97.7 74 18 147/66 (93) 100 12/21/17 11:17 76 17 151/75 (100) 98 12/21/17 08:00 98.9 90 16 131/74 (93) 97 Room Air 12/21/17 07:27 79 17 117/62 (80) 99 Room Air 12/21/17 02:04 79 Room Air 12/21/17 01:23 99.1 82 18 123/59 (80) 98 I/O 12/20/17 12/20/17 12/20/17 12/21/17 12/21/17 12/21/17 06:59 14:59 22:59 06:59 14:59 22:59 Intake Total 100 ml Balance 100 ml Intake IV Total 100 ml # Voids 2 # Bowel Movements 1 Imaging Last Impressions Abdomen/Pelvis CT 12/21/17 0328 Signed Impressions: CONCLUSION: Chest X-Ray 12/21/17 0138 Signed Impressions: CONCLUSION: Laboratory Test 12/21/17 02:00 12/21/17 04:30 12/21/17 08:45 12/21/17 10:40 White Blood Count 9.0 TH/MM3 Red Blood Count 4.51 MIL/MM3 Hemoglobin 12.7 GM/DL Hematocrit 37.5 % Mean Corpuscular Volume 83.1 FL Mean Corpuscular Hemoglobin 28.2 PG Mean Corpuscular Hemoglobin Concent 33.9 % Red Cell Distribution Width 14.1 % Platelet Count 223 TH/MM3 Mean Platelet Volume 9.6 FL CBC Comment AUTO DIFF Differential Total Cells Counted 100 Neutrophils % (Manual) 7 % Band Neutrophils % 26 % Lymphocytes % 40 % Monocytes % 20 % Eosinophils % 3 % Basophils % 2 % Neutrophils # (Manual) 3.2 TH/MM3 Metamyelocytes 2 % Nucleated Red Blood Cells 1 /100 WBC Differential Comment FINAL DIFF MANUAL Atypical Lymphocytes % Toxic Granulation 1+ Dohle Bodies PRESENT Platelet Estimate NORMAL Platelet Morphology Comment NORMAL Red Cell Morphology Comment NORMAL Prothrombin Time 10.4 SEC Prothromb Time International Ratio 1.0 RATIO Activated Partial Thromboplast Time 32.0 SEC Blood Urea Nitrogen 35 MG/DL Creatinine 2.86 MG/DL Random Glucose 159 MG/DL Total Protein 6.6 GM/DL Albumin 2.6 GM/DL Calcium Level 7.8 MG/DL Magnesium Level 2.2 MG/DL Alkaline Phosphatase 84 U/L Aspartate Amino Transf (AST/SGOT) 15 U/L Alanine Aminotransferase (ALT/SGPT) 20 U/L Total Bilirubin 0.7 MG/DL Sodium Level 134 MEQ/L Potassium Level 3.2 MEQ/L Chloride Level 104 MEQ/L Carbon Dioxide Level 18.9 MEQ/L Anion Gap 11 MEQ/L Estimat Glomerular Filtration Rate 27 ML/MIN Total Creatine Kinase 62 U/L Troponin I LESS THAN 0.02 NG/ML LESS THAN 0.02 NG/ML B-Type Natriuretic Peptide 46 PG/ML Lipase 23 U/L Lactic Acid Level 1.6 mmol/L Urine Color YELLOW Urine Turbidity HAZY Urine pH 5.5 Urine Specific Ralls 1.012 Urine Protein 30 mg/dL Urine Glucose (UA) TRACE mg/dL Urine Ketones NEG mg/dL Urine Occult Blood TRACE Urine Nitrite NEG Urine Bilirubin NEG Urine Urobilinogen LESS THAN 2.0 MG/DL Urine Leukocyte Esterase NEG Urine RBC 1 /hpf Urine WBC 3 /hpf Urine Squamous Epithelial Cells 1 /hpf Urine Bacteria RARE /hpf Urine Hyaline Casts 5 /lpf Microscopic Urinalysis Comment CULT NOT INDICATED Stool C. difficile Toxin (PCR) NEGATIVE Stl C. difficile Toxin Epiderm 027 PRESUMPTIVE NEGATIVE Date/Time Source Procedure Growth Status 12/21/17 06:40 Blood Peripheral Aerobic Blood Culture Pending Received 12/21/17 06:40 Blood Peripheral Anaerobic Blood Culture Pending Received 12/21/17 08:45 Stool Stool Cryptosporidium Exam Pending Resulted 12/21/17 08:45 Stool Stool Stool Pus (KIAN) - Final MODERATE WBC'S Resulted 12/21/17 08:45 Stool Stool Giardia Antigen (KIAN) Pending Resulted Physical Examination HEENT: Normocephalic; atraumatic CHEST: Even/unlabored. CARDIAC: RRR ABDOMEN: Round, soft, lower abdominal tenderness, bowel sounds active EXTREMITIES: No clubbing, cyanosis, or edema. SKIN: Normal; no rash; no jaundice. MOLD STAMPER: Alert and oriented times three. (Jaylene Rowe) Assessment and Plan Plan Assessment: - Hematochezia, on Brilinta H/H currently 12.7/37.5 Pt reports diarrhea for the past four days, bloody stools for the past 2 days, multiple episodes, 7 yesterday and 3 so far today. Associated fevers, resolved yesterday. Nausea and emesis, last episode yesterday. Denies hematemesis and coffee ground emesis. Abdominal pain, lower, described as "gas pains", constant. Denies history of GIB Has never had EGD or colonoscopy. Risk factors: Brilinta, also takes ibuprofen occasionally. Recent travel- spent 7 months in [place], returned yesterday C. Diff negative. Rotavirus negative. Denies ETOH and smoking CT abdomen and pelvis W/O IV contrast (12/21) --> Nonspecific, nonobstructive bowel gas pattern. There is circumferential wall thickening involving portion of the transverse colon which could indicate colitis. Cholelithiasis with no gallbladder wall thickening or inflammatory change. Plan: EGD/colonoscopy tomorrow Obtain consent Clear liquids today Golytely prep NPO after MN Serial H/H Transfuse as needed Cipro and Flagyl Enteric pathogens, ova and parasites stool pending Brilinta on hold Further recommendations based on results of above and clinical course Pt has been seen and examined by myself and Dr. Kline and this note is written on his behalf (Jaylene Rowe) Physician Comments Patient seen and examined Agree with above Continue with current supportive care Monitor labs Plan for an EGD and a colonoscopy tomorrow (Alex Kline MD) Jaylene Rowe December 21, 2017 13:15 Alex Kline MD December 21, 2017 22:19
--- NOTE | 2017-12-21 13:51 | EKG ---
Date Performed: 12/21/2017 Time Performed: 10:30:32 PTAGE: 67 years EKG: Sinus rhythm LEFT ATRIAL ENLARGEMENT MARKED LEFT AXIS DEVIATION PATTERN CONSISTENT WITH PULMONARY DISEASE POSSIBL E RIGHT VENTRICULAR CONDUCTION DELAY LEFT VENTRICULAR HYPERTROPHY AND ST-T CHANGE POSSIBLE SEPTAL TAYLOR CARDIAL INFARCTION ABNORMAL ECG No significant change from prior electrocardiogram. PREVIOUS TRACING : 12/21/2017 01.54 DOCTOR: Mykel Baca Interpretating Date/Time 12/21/2017 13:50:32
--- NOTE | 2017-12-21 14:41 | EKG ---
Date Performed: 12/21/2017 Time Performed: 01:54:32 PTAGE: 67 years EKG: Sinus rhythm LEFT ATRIAL ENLARGEMENT MARKED LEFT AXIS DEVIATION POSSIBLE RIGHT VENTRICULAR CONDUCTION DELAY POSSI BLE LEFT VENTRICULAR HYPERTROPHY POSSIBLE SEPTAL MYOCARDIAL INFARCTION Nonspecific T wave changes ABN ORMAL ECG NO PREVIOUS TRACING DOCTOR: Mykel Baca Interpretating Date/Time 12/21/2017 14:40:39
[2017-12-21] MEDS ORDERED: LACTATED RINGER'S 1000 ML IV PRN (15:00)
[2017-12-21] MEDS ORDERED: POVIDONE IODINE 5% (ANTISEPSIS KIT) 4 APPLICATIONS EACH NARE PRN (15:00)
[2017-12-21] MEDS ORDERED: METOPROLOL TARTRATE 25 MG TAB PO PRN (15:00)
[2017-12-21] MEDS ORDERED: CHLORHEXIDINE GLUCONATE 2 % 1 PACK (2 CLOTHS) TOPICAL PRN (15:00)
[2017-12-21] MEDS ORDERED: SODIUM CHLORID 0.9% 500 ML IV PRN (15:00)
[2017-12-21 15:25] LABS: TROPONIN I LESS THAN 0.02 NG/ML (0.02-0.05)
[2017-12-21] MEDS ORDERED: diphenhydrAMINE HCL 2%/ZINC ACETATE 0.1% CREAM 30 APPLIC/30 GM TUBE TOPICAL PRN (15:30)
[2017-12-21] MEDS ORDERED: PEG (High)/E-LYTE SOLN 4000 ML BTL PO ONE (16:00)
[2017-12-21] MEDS ORDERED: metroNIDAZOLE 500 MG INJ 100 ML IV SCH (16:00)
[2017-12-21] MEDS: MORPHINE SULFATE 4 MG/ML INJ IV PUSH PRN ×2 (16:11→22:02)
[2017-12-21 17:27] LABS: HEMOGLOBIN A1C 7.9 % (4.3-6.0)
[2017-12-21] MEDS: AMITRIPTYLINE HCL 75 MG TAB PO SCH (21:55)
[2017-12-21 22:11] LABS: HEMATOCRIT 40.4 % (39.0-51.0); HEMOGLOBIN 13.1 GM/DL (13.0-17.0)
[2017-12-22] VITALS: BP 134/64; PULSE 75; RESP 16; TEMP 97.2; O2SAT 97
[2017-12-22 00:09] VITALS: PULSE 76
[2017-12-22] MEDS: CIPROFLOXACIN 500 MG TAB PO SCH ×2 (00:49→17:19)
[2017-12-22] MEDS: SODIUM CHLOR 0.9% 1000 ML INJ 1,000 ML IV SCH ×3 (03:49→22:11)
[2017-12-22 04:00] VITALS: BP 130/60; PULSE 69; RESP 16; TEMP 97.4; O2SAT 97
[2017-12-22] MEDS: MORPHINE SULFATE 4 MG/ML INJ IV PUSH PRN (07:31)
[2017-12-22 08:00] VITALS: BP 144/65; PULSE 67; RESP 18; TEMP 97.6; O2SAT 96
[2017-12-22 08:18] LABS: AUTOMATED NEUTROPHIL # 8.4 TH/MM3 (1.8-7.7); BASOPHIL % 0.3 % (0.0-2.0); EOSINOPHIL # 0.3 TH/MM3 (0-0.4); HEMATOCRIT 33.2 % (39.0-51.0); HEMOGLOBIN 10.9 GM/DL (13.0-17.0); LYMPH % 14.2 % (9.0-44.0); LYMPHOCYTE # 1.8 TH/MM3 (1.0-4.8); MEAN CELL VOLUME 84.5 FL (80.0-100.0); MEAN CORPUSCULAR HEMOGLOBIN 27.8 PG (27.0-34.0); MEAN PLATELET VOLUME 9.4 FL (7.0-11.0); MONO % 18.6 % (0.0-8.0); MONOCYTE # 2.4 TH/MM3 (0-0.9); NEUT % 64.9 % (16.0-70.0); PLATELET COUNT 190 TH/MM3 (150-450); RED BLOOD COUNT 3.93 MIL/MM3 (4.50-5.90); RED CELL DISTRIBUTION WIDTH 14.2 % (11.6-17.2); WHITE BLOOD COUNT 12.9 TH/MM3 (4.0-11.0)
[2017-12-22 08:41] LABS: BICARBONATE 19.7 MEQ/L (21.0-32.0); CREATININE 2.21 MG/DL (0.60-1.30)
[2017-12-22] MEDS: SODIUM CHLORIDE 0.9% FLUSH 10 ML FLUSH IV FLUSH SCH ×2 (09:00→21:00)
[2017-12-22 09:35] LABS: BANDS 12 % (0-6); LYMPHOCYTES 26 % (9-44); METAMYELOCYTES 1 % (0-1); MONOCYTES 11 % (0-8); NEUTROPHIL # MANUAL DIFF 7.7 TH/MM3 (1.8-7.7); POLYS (SEG NEUTROPHILS) 47 % (16-70)
[2017-12-22 09:36] LABS: TOXIC GRANULATION 1+ (NORMAL)
[2017-12-22] MEDS: CARVEDILOL 12.5 MG TAB PO SCH ×2 (09:46→21:59)
[2017-12-22] MEDS: PRAVASTATIN SOD 40 MG TAB PO SCH (09:47)
[2017-12-22] MEDS: INSULIN ASPART SUPPLEMENTAL SCALE SQ SCH ×4 (09:50→22:10)
[2017-12-22] MEDS ORDERED: SIMETHICONE 125 MG CHEWABLE TAB PO PRN (10:00)
--- NOTE | 2017-12-22 10:31 | HHI.FPPN ---
Subjective Remarks No acute issues overnight. Vitals are stable, patient remains afebrile. He continues to have abdominal pain, however his diarrhea is decreasing in frequency and volume. He continues to feel fatigued and notes aching in his right arm that chronically occurs with colder weather. He denies any chest pain , shortness of breath, fever, chills, nausea or vomiting. (Irene Fuller MD R3) Objective Vitals Vital Signs Date Time Temp Pulse Resp B/P (MAP) Pulse Ox O2 Delivery O2 Flow Rate FiO2 12/22/17 04:00 97.4 69 16 130/60 (83) 97 12/22/17 00:09 76 12/22/17 00:00 97.2 75 16 134/64 (87) 97 12/21/17 20:00 97.8 76 16 146/66 (92) 96 12/21/17 16:00 98.4 74 18 125/60 (81) 97 12/21/17 12:04 97.7 74 18 147/66 (93) 100 12/21/17 11:17 76 17 151/75 (100) 98 I/O 12/21/17 12/21/17 12/21/17 12/22/17 12/22/17 12/22/17 07:00 15:00 23:00 07:00 15:00 23:00 Intake Total 500 ml 100 ml 1000 ml Balance 500 ml 100 ml 1000 ml Intake IV Total 500 ml 100 ml 1000 ml # Voids 2 # Bowel Movements 1 4 (Irene Fuller MD R3) Result Diagram: 12/22/17 0653 12/22/17 0653 Imaging Last Impressions Abdomen/Pelvis CT 12/21/17 0328 Signed Impressions: CONCLUSION: 1. Nonspecific, nonobstructive bowel gas pattern. There is circumferential wal l thickening involving portions of the transverse colon which could indicate co litis. 2. Cholelithiasis with no gallbladder wall thickening or inflammatory change. Chest X-Ray 12/21/17 0138 Signed Impressions: CONCLUSION: No acute cardiopulmonary disease. Objective Remarks GENERAL: Well nourished, well developed male resting comfortably in bed. SKIN: Warm and dry. HEAD: Atraumatic. Normocephalic. EYES: Pupils equal and round. No scleral icterus. No injection or drainage. ENT: No nasal bleeding or discharge. Mucous membranes pink and moist. NECK: Trachea midline. No JVD. CARDIOVASCULAR: Regular rate and rhythm. RESPIRATORY: No accessory muscle use. Clear to auscultation. Breath sounds equal bilaterally. GASTROINTESTINAL: Abdomen soft, mildly tender to palpation throughout, mildly distended. MUSCULOSKELETAL: Extremities without clubbing, cyanosis, or edema. No obvious deformities. NEUROLOGICAL: Awake and alert. No obvious cranial nerve deficits. Motor grossly within normal limits. Normal speech. PSYCHIATRIC: Appropriate mood and affect; insight and judgment normal. (Irene Fuller MD R3) A/P Assessment and Plan 67-year-old male from [facility] with past medical history of dilated cardiomyopathy , CABG in 2016, PVD, hypertension, DM, and hyperlipidemia who presented to the ED for lower abdominal pain and diarrhea. Admitted for fluids and IV antibiotics. Discharge Planning Anticipate discharge home pending clinical improvement in the next 1-2 days. (Irene Fuller MD R3) Attending Attestation Patient examined independently and case discussed with resident physicians I have read the above note and agree with the assessment/plan as discussed with me I was involved in all medical decision making for this patient Gareth Tello MD (Gareth Tello MD) Problem List: (1) Shigella gastroenteritis ICD Codes: A03.9 - Shigellosis, unspecified Status: Acute Plan: Labs & Imaging: Afebrile WBC trending up today Lactic acid wnl Blood cultures pending Stool studies positive for Shigella Abdominal/pelvis CT demonstrates nonspecific, nonobstructive bowel gas pattern. There is a cervical pharyngeal wall thickening involving portions of the transverse colon which could indicate colitis. Cholelithiasis with no gallbladder wall thickening or inflammatory change. Antibiotics: s/p Zosyn 3.375 GM once and Flagyl 500mg IV once in the ED, s/p Flagyl 500mg IV Continue Ciprofloxacin 500mg PO, renally dosed by pharmacy GI consulted, appreciate recommendations, plan for EGD/colonoscopy Clear liquid diet NS 100mls/hr Zofran as needed for nausea [place] 5mg q4h for pain 1-5 morphine 2mg IV push q4h pain 6-10 (2) SHAE (acute kidney injury) ICD Codes: N17.9 - Acute kidney failure, unspecified Status: Acute Plan: BUN of 35 with creatinine of 2.86 on admission BUN/Creatine trending down today SHAE most likely due to dehydration and hypoperfusion Continue with IV fluids 100mls/hr Avoid nephrotoxic agents (3) Coronary artery disease ICD Codes: I25.10 - Atherosclerotic heart disease of [place] coronary artery without angina pectoris Status: Acute Plan: Held home Ticagrelor due to bloody diarrhea and anemia Troponin and EKG stable Echo with 2D Doppler ordered (4) Anemia ICD Codes: D64.9 - Anemia, unspecified Status: Acute Plan: Hgb trending down secondary to hemorrhagic diarrhea which has now essentially resolved. Continue to trend H&H Transfuse if < 7 (5) Diabetes mellitus ICD Codes: E11.9 - Type 2 diabetes mellitus without complications Status: Chronic Plan: Reports uncontrolled blood sugars at home, ranging in the 500s Held home insulin Low sliding scale A1c 7.9 (6) Hypertension ICD Codes: I10 - Essential (primary) hypertension Status: Chronic Plan: Held home lisinopril and furosemide due to SHAE Continue carvedilol 12.5 mg twice daily Clonidine 0.1 mg as needed for BP>180/100 (7) Hyperlipidemia ICD Codes: E78.5 - Hyperlipidemia, unspecified Status: Chronic Plan: Continue pravastatin 40 mg p.o. daily (8) Depression ICD Codes: F32.9 - Major depressive disorder, single episode, unspecified Status: Chronic Plan: Amitriptyline 150mg PO HS (9) Nutrition, metabolism, and development symptoms ICD Codes: R63.8 - Other symptoms and signs concerning food and fluid intake Status: Acute Plan: Diet: Clear liquids Fluids: NS @100mls/hr Vitals every 4, monitor I's and O's, telemetry (Irene Fuller MD R3) Problem Qualifiers (1) Coronary artery disease: Qualified Codes: I25.119 - Atherosclerotic heart disease of [place] coronary artery with unspecified angina pectoris (2) Anemia: Qualified Codes: D64.89 - Other specified anemias (3) Diabetes mellitus: (4) Hypertension: Qualified Codes: I10 - Essential (primary) hypertension (5) Hyperlipidemia: Qualified Codes: E78.5 - Hyperlipidemia, unspecified (6) Depression: Qualified Codes: F33.9 - Major depressive disorder, recurrent, unspecified Irene Fuller MD R3 December 22, 2017 10:31 Gareth Tello MD December 22, 2017 11:29
[2017-12-22] MEDS ORDERED: SIMETHICONE 125 MG CHEWABLE TAB PO ONE (11:00)
[2017-12-22] MEDS: ACETAMINOPHEN/HYDROcodone 325 MG/5 MG TAB PO PRN ×3 (12:05→21:59)
[2017-12-22] MEDS ORDERED: POTASSIUM CHLORIDE 20 MEQ CONTROLLED RELEASE TAB PO ONE (15:00)
--- NOTE | 2017-12-22 15:25 | HHI.GIFU ---
Subjective Remarks Patient is resting in the bed daughter is in the room supporting him Answer simple questions, continues to have residual bowel prep 4 today but no further rectal blood noted Generalized weekend condition but no current nausea or vomiting Current hemoglobin 10.9 EGD colonoscopy canceled today secondary to patient's stool infection, Shigella (Radha Vigil) Objective Vitals I&O Vital Signs Date Time Temp Pulse Resp B/P (MAP) Pulse Ox O2 Delivery O2 Flow Rate FiO2 12/22/17 08:00 97.6 67 18 144/65 (91) 96 12/22/17 04:00 97.4 69 16 130/60 (83) 97 12/22/17 00:09 76 12/22/17 00:00 97.2 75 16 134/64 (87) 97 12/21/17 20:00 97.8 76 16 146/66 (92) 96 12/21/17 16:00 98.4 74 18 125/60 (81) 97 I/O 12/21/17 12/21/17 12/21/17 12/22/17 12/22/17 12/22/17 07:00 15:00 23:00 07:00 15:00 23:00 Intake Total 500 ml 100 ml 1000 ml 1000 ml Balance 500 ml 100 ml 1000 ml 1000 ml Intake IV Total 500 ml 100 ml 1000 ml 1000 ml # Voids 2 # Bowel Movements 1 4 Laboratory Laboratory Tests Test 12/21/17 21:50 12/22/17 06:53 Hemoglobin 13.1 10.9 Hematocrit 40.4 33.2 White Blood Count 12.9 Red Blood Count 3.93 Mean Corpuscular Volume 84.5 Mean Corpuscular Hemoglobin 27.8 Mean Corpuscular Hemoglobin Concent 33.0 Red Cell Distribution Width 14.2 Platelet Count 190 Mean Platelet Volume 9.4 Neutrophils (%) (Auto) 64.9 Lymphocytes (%) (Auto) 14.2 Monocytes (%) (Auto) 18.6 Eosinophils (%) (Auto) 2.0 Basophils (%) (Auto) 0.3 Neutrophils # (Auto) 8.4 Lymphocytes # (Auto) 1.8 Monocytes # (Auto) 2.4 Eosinophils # (Auto) 0.3 Basophils # (Auto) 0.0 CBC Comment AUTO DIFF Differential Total Cells Counted 100 Neutrophils % (Manual) 47 Band Neutrophils % 12 Lymphocytes % 26 Monocytes % 11 Eosinophils % 3 Neutrophils # (Manual) 7.7 Metamyelocytes 1 Differential Comment FINAL DIFF MANUAL Toxic Granulation 1+ Platelet Estimate NORMAL Platelet Morphology Comment NORMAL Red Cell Morphology Comment NORMAL Blood Urea Nitrogen 33 Creatinine 2.21 Random Glucose 168 Calcium Level 8.0 Sodium Level 143 Potassium Level 3.3 Chloride Level 109 Carbon Dioxide Level 19.7 Anion Gap 14 Estimat Glomerular Filtration Rate 36 Date/Time Source Procedure Growth Status 12/21/17 06:40 Blood Peripheral Aerobic Blood Culture - Preliminary NO GROWTH IN 1 DAY Resulted 12/21/17 06:40 Blood Peripheral Anaerobic Blood Culture - Preliminary NO GROWTH IN 1 DAY Resulted 12/21/17 08:45 Stool Stool Cryptosporidium Exam - Final NEGATIVE - NO CRYPTOSPORIDIUM ANTIGEN... Complete 12/21/17 08:45 Stool Stool Stool Pus (KIAN) - Final MODERATE WBC'S Complete 12/21/17 08:45 Stool Stool Giardia Antigen (KIAN) - Final NEGATIVE - NO GIARDIA ANTIGEN DETECTE... Complete Imaging Last Impressions Abdomen/Pelvis CT 12/21/17 0328 Signed Impressions: CONCLUSION: 1. Nonspecific, nonobstructive bowel gas pattern. There is circumferential wal l thickening involving portions of the transverse colon which could indicate co litis. 2. Cholelithiasis with no gallbladder wall thickening or inflammatory change. Chest X-Ray 12/21/17 0138 Signed Impressions: CONCLUSION: No acute cardiopulmonary disease. Physical Exam HEENT: normocephalic; atraumatic; no jaundice. Obesity NECK: Neck is supple, CHEST: Chest is clear no obvious rhonchi CARDIAC: Regular rate and rhythm ABDOMEN: Large, soft, nondistended, mild generalized mid abdomen tenderness no hepatosplenomegaly; bowel sounds are present in all four quadrants. EXTREMITIES: No lower extremity edema. SKIN: Normal; no rash; no jaundice. ASSOCIATE RELATIONS SPECIALIST: Answers simple questions (Radha Vigil) Assessment and Plan Plan Assessment: - Hematochezia, on Brilinta H/H currently 12.7/37.5 Pt reports diarrhea for the past four days, bloody stools for the past 2 days, multiple episodes, 7 yesterday and 3 so far today. Associated fevers, resolved yesterday. Nausea and emesis, last episode yesterday. Denies hematemesis and coffee ground emesis. Abdominal pain, lower, described as "gas pains", constant. Denies history of GIB Has never had EGD or colonoscopy. Risk factors: Brilinta, also takes ibuprofen occasionally. Recent travel- spent 7 months in [place], returned yesterday C. Diff negative. Rotavirus negative. Denies ETOH and smoking CT abdomen and pelvis W/O IV contrast (12/21) --> Nonspecific, nonobstructive bowel gas pattern. There is circumferential wall thickening involving portion of the transverse colon which could indicate colitis. Cholelithiasis with no gallbladder wall thickening or inflammatory change. 12/22/2017 patient was initially scheduled for EGD colonoscopy today but was found to be positive for Shigella. C. difficile negative, moderate amount of WBCs in stool, Vega negative. CT scan results noted. Hemoglobin 10.9, no obvious nausea or vomiting, decreased appetite encouraged clear liquids. Abdomen continues to be bloated and distended with generalized mid abdominal discomfort to light palpation We will consider doing EGD and colonoscopy once patient has taken p.o. Cipro and recovered from his symptoms of Shigella. Possible next week versus outpatient. Plan: Diet clear liquids Cipro 500 mg every 18 hours Monitor labs Antiemetics Brilinta on hold Further recommendations based on results of above and clinical course Pt has been seen and examined by myself and Dr. Kline and this note is written on his behalf (Radha Vigil) Physician Comments Patient seen and examined Agree with above Continue with current supportive care Monitor labs (Alex Kline MD) Radha Vigil December 22, 2017 15:25 Alex Kline MD December 22, 2017 23:54
[2017-12-22 16:00] VITALS: BP 149/67; PULSE 70; RESP 18; TEMP 97.3; O2SAT 97
[2017-12-22 16:45] LABS: HEMOGLOBIN 10.8 GM/DL (13.0-17.0)
--- NOTE | 2017-12-22 17:01 | ECHRPT ---
Indication: HEART FAILURE CONCLUSIONS The left ventricular systolic function is normal with an estimated ejection fraction in the range of 60-65%. Normal left ventricular size. Wall thickness is measured at the upper limits of normal. No regional wall motion abnormalities are present. Aortic valve sclerosis is present. There is trace tricuspid valve regurgitation. The estimated pulmonary arterial pressure is 30.3 mmHg. BP: 151 / 75 HR: 76 Rhythm: Sinus MEASUREMENTS (Male / Female) Normal Values Technical Quality:Excellent 2D ECHO LV Diastolic Diameter PLAX 4.3 cm 4.2 - 5.9 / 3.9 - 5.3 cm LV Systolic Diameter PLAX 3.2 cm IVS Diastolic Thickness 1.2 cm 0.6 - 1.0 / 0.6 - 0.9 cm LVPW Diastolic Thickness 1.2 cm 0.6 - 1.0 / 0.6 - 0.9 cm LV Relative Wall Thickness 0.5 RV Internal Dim ED PLAX 2.5 cm LVOT Diameter 1.8 cm LA Systolic Diameter LX 3.8 cm 3.0 - 4.0 / 2.7 - 3.8 cm LV Ejection Fraction MOD 4C 63.0 % LV Cardiac Index MOD 4C 1482.8 cm/minm LV Ejection Fraction 4C AL 66.2 % LV Cardiac Index 4C AL 1618.1 cm/minm M-MODE Aortic Root Diameter MM 2.2 cm LA Systolic Diameter MM 3.8 cm LA Ao Ratio MM 1.7 DOPPLER AV Peak Velocity 122.0 cm/s AV Peak Gradient 6.0 mmHg LVOT Peak Velocity 79.5 cm/s LVOT Peak Gradient 2.5 mmHg AV Area Cont Eq pk 1.7 cm MV Area PHT 5.0 cm Mitral E Point Velocity 81.4 cm/s Mitral A Point Velocity 80.9 cm/s Mitral E to A Ratio 1.0 LV E' Lateral Velocity 5.4 cm/s Mitral E to LV E' Lateral Ratio 15.2 LV E' Septal Velocity 3.5 cm/s Mitral E to LV E' Septal Ratio 23.2 TR Peak Velocity 225.0 cm/s TR Peak Gradient 20.3 mmHg Right Atrial Pressure 10.0 mmHg Pulmonary Artery Systolic Pressu 30.3 mmHg Right Ventricular Systolic Press 30.3 mmHg PV Peak Velocity 70.6 cm/s PV Peak Gradient 2.0 mmHg FINDINGS LEFT VENTRICLE The left ventricular systolic function is normal with an estimated ejection fraction in the range of 60-65%. Normal left ventricular size. Wall thickness is measured at the upper limits of normal. No regional wall motion abnormalities are present. RIGHT VENTRICLE Normal right ventricular size and systolic function. LEFT ATRIUM The left atrial size is normal. RIGHT ATRIUM The right atrial size is normal. ATRIAL SEPTUM Normal atrial septal thickness without atrial level shunting by limited color doppler interrogation. AORTA The aortic root and proximal ascending aorta are normal in size on limited imaging. MITRAL VALVE Structurally normal mitral valve. No mitral valve stenosis or regurgitation. AORTIC VALVE Trileaflet aortic valve. Aortic valve sclerosis is present. TRICUSPID VALVE Structurally normal tricuspid valve. There is trace tricuspid valve regurgitation. The estimated pulmonary arterial pressure is 30.3 mmHg. PULMONARY VALVE No pulmonary valve regurgitation or stenosis. VESSELS The inferior vena cava is normal in size. PERICARDIUM No pericardial effusion. Dmitri Pool MD, FACC, [facility] [place] (Electronically Signed) Final Date:22 Dec 2017 16:59
[2017-12-22 20:00] VITALS: BP 144/71; PULSE 65; RESP 16; TEMP 97; O2SAT 96
[2017-12-22] MEDS: AMITRIPTYLINE HCL 75 MG TAB PO SCH (21:59)
[2017-12-23] VITALS (8 sets, daily range): BP systolic 115–214; BP diastolic 66–94; PULSE 63–76; RESP 16–18; TEMP 97–97.8; O2SAT 95–98
[2017-12-23] MEDS: INSULIN ASPART SUPPLEMENTAL SCALE SQ SCH ×4 (08:00→20:00)
[2017-12-23] MEDS: PRAVASTATIN SOD 40 MG TAB PO SCH (08:42)
[2017-12-23] MEDS: SODIUM CHLORIDE 0.9% FLUSH 10 ML FLUSH IV FLUSH SCH ×2 (08:43→19:59)
[2017-12-23] MEDS: ACETAMINOPHEN/HYDROcodone 325 MG/5 MG TAB PO PRN ×2 (08:43→19:53)
[2017-12-23] MEDS: CARVEDILOL 12.5 MG TAB PO SCH ×2 (08:43→19:54)
[2017-12-23] MEDS: SODIUM CHLOR 0.9% 1000 ML INJ 1,000 ML IV SCH ×2 (08:44→20:01)
--- NOTE | 2017-12-23 09:01 | HHI.FPPN ---
Subjective Remarks No acute events overnight. Pt lying in bed. Daughter at bedside. Patient states that he has abdominal pain /, improved from yesterday. 4 V, 6BM. Daughter states that patient has not had another BM since 10pm last night and patient was able to sleep throughout the night. He complains of sharp, aching pain in his left arm. Daughter states that this arm pain is old and improves with heat. VSS. Tolerating liquid diet, will progress to diabetic diet today. He denies fevers, CP, SOB, and N/V. (Rachell Branham MD R1) Objective Vitals Vital Signs Date Time Temp Pulse Resp B/P (MAP) Pulse Ox O2 Delivery O2 Flow Rate FiO2 12/23/17 08:00 97.4 69 18 165/72 (103) 98 12/23/17 04:00 97.0 63 16 115/69 (84) 96 12/23/17 00:47 68 12/23/17 00:00 97.3 65 16 145/66 (92) 98 12/22/17 20:00 97.0 65 16 144/71 (95) 96 12/22/17 16:00 97.3 70 18 149/67 (94) 97 I/O 12/22/17 12/22/17 12/22/17 12/23/17 12/23/17 12/23/17 07:00 15:00 23:00 07:00 15:00 23:00 Intake Total 1000 ml 1000 ml 600 ml Output Total 500 ml Balance 1000 ml 1000 ml 600 ml -500 ml Intake Oral 600 ml IV Total 1000 ml 1000 ml Output Urine Total 500 ml # Voids 4 # Bowel Movements 4 4 2 (Rachell Branham MD R1) Result Diagram: 12/22/17 1625 12/22/17 0653 Objective Remarks GENERAL: Well nourished, well developed male resting comfortably in bed. SKIN: Warm and dry. HEAD: Atraumatic. Normocephalic. EYES: Pupils equal and round. No scleral icterus. No injection or drainage. ENT: No nasal bleeding or discharge. Mucous membranes pink and moist. NECK: Trachea midline. No JVD. CARDIOVASCULAR: Regular rate and rhythm. RESPIRATORY: No accessory muscle use. Clear to auscultation. Breath sounds equal bilaterally. GASTROINTESTINAL: Abdomen soft, mildly tender to palpation throughout, mildly distended. MUSCULOSKELETAL: Extremities without clubbing, cyanosis, or edema. No obvious deformities. NEUROLOGICAL: Awake and alert. No obvious cranial nerve deficits. Motor grossly within normal limits. Normal speech. PSYCHIATRIC: Appropriate mood and affect; insight and judgment normal. (Rachell Branham MD R1) A/P Assessment and Plan 67-year-old male from [facility] with past medical history of dilated cardiomyopathy , CABG in 2016, PVD, hypertension, DM, and hyperlipidemia who presented to the ED for lower abdominal pain and diarrhea. Admitted for fluids and IV antibiotics. Discharge Planning Anticipate discharge home tomorrow, pending clinical improvement Home with home health PT (Rachell Branham MD R1) Attending Attestation Patient examined by myself independently and case discussed with resident physicians I have read the above note and agree with the assessment/plan as discussed with me I was involved in all medical decision making for this patient Gareth Tello MD (Gareth Tello MD) Problem List: (1) Shigella gastroenteritis ICD Codes: A03.9 - Shigellosis, unspecified Status: Acute Plan: Antibiotics: s/p Zosyn 3.375 GM once and Flagyl 500mg IV once in the ED, s/p Flagyl 500mg IV Continue Ciprofloxacin 500mg PO q18h, renally dosed by pharmacy, total 3 day course GI consulted, appreciate recommendations -plan for EGD/colonoscopy next week vs outpatient Clear liquid diet, will progress to diabetic diet today Titrate NS IV fluids Zofran as needed for nausea [place] 5mg q4h for pain 1-5 morphine 2mg IV push q4h pain 6-10 Labs & Imaging: Afebrile WBC pending for today Lactic acid wnl Blood cultures no growth in 1 day Stool studies positive for Shigella Abdominal/pelvis CT demonstrates nonspecific, nonobstructive bowel gas pattern. There is a cervical pharyngeal wall thickening involving portions of the transverse colon which could indicate colitis. Cholelithiasis with no gallbladder wall thickening or inflammatory change. (2) SHAE (acute kidney injury) ICD Codes: N17.9 - Acute kidney failure, unspecified Status: Acute Plan: BUN of 35 with creatinine of 2.86 on admission Baseline Cr ~1.2 BUN/Creatine trending down, pending for today SHAE most likely due to dehydration and hypoperfusion Titrate IV fluids Avoid nephrotoxic agents (3) Coronary artery disease ICD Codes: I25.10 - Atherosclerotic heart disease of [place] coronary artery without angina pectoris Status: Acute Plan: Held home Ticagrelor due to bloody diarrhea and anemia Troponin and EKG stable Echo with 2D Doppler pending (4) Anemia ICD Codes: D64.9 - Anemia, unspecified Status: Acute Plan: Hgb trending down secondary to hemorrhagic diarrhea which has now essentially resolved. Continue to trend H&H Transfuse if < 7 or if symptomatic (5) Diabetes mellitus ICD Codes: E11.9 - Type 2 diabetes mellitus without complications Status: Chronic Plan: Reports uncontrolled blood sugars at home, ranging in the 500s Held home insulin Low sliding scale A1c 7.9 Blood sugars over the past 24 hours, 198, 168, 158, has required 3 units total (6) Hypertension ICD Codes: I10 - Essential (primary) hypertension Status: Chronic Plan: Held home lisinopril and furosemide due to SHAE Continue carvedilol 12.5 mg twice daily Clonidine 0.1 mg as needed for BP>180/100 (7) Hyperlipidemia ICD Codes: E78.5 - Hyperlipidemia, unspecified Status: Chronic Plan: Continue pravastatin 40 mg p.o. daily (8) Depression ICD Codes: F32.9 - Major depressive disorder, single episode, unspecified Status: Chronic Plan: Amitriptyline 150mg PO HS (9) Nutrition, metabolism, and development symptoms ICD Codes: R63.8 - Other symptoms and signs concerning food and fluid intake Status: Acute Plan: Diet: Clear liquids, progress to diabetic diet as tolerated Fluids: Titrate IV fluids Vitals every 4, monitor I's and O's, telemetry DVT ppx: SCDs and heparin 5000units q12h (Rachell Branham MD R1) Problem Qualifiers (1) Coronary artery disease: Qualified Codes: I25.119 - Atherosclerotic heart disease of [place] coronary artery with unspecified angina pectoris (2) Anemia: Qualified Codes: D64.89 - Other specified anemias (3) Diabetes mellitus: (4) Hypertension: Qualified Codes: I10 - Essential (primary) hypertension (5) Hyperlipidemia: Qualified Codes: E78.5 - Hyperlipidemia, unspecified (6) Depression: Qualified Codes: F33.9 - Major depressive disorder, recurrent, unspecified Rachell Branham MD R1 December 23, 2017 09:01 Gareth Tello MD December 23, 2017 14:42
--- NOTE | 2017-12-23 09:19 | HHI.FF ---
Face to Face Verification Diagnosis: (1) Shigella gastroenteritis (2) Diabetes mellitus (3) Blindness of both eyes (4) Hyperlipidemia (5) Hypertension (6) SHAE (acute kidney injury) Physical Therapy Order: Evaluate and Treat, Improve ambulation Home Health Nursing Order: Medical education Signs/symptoms of disease process Diabetic education I have seen patient Juan Renner on 12/23/17. My clinical findings support the need for the requested home health care services because: Ltd mobility - disease progression Deconditioned w/ increased weakness High risk of falls I certify that my clinical findings support that this patient is homebound because: Impaired cognitive ability/safety Unsteady gait/balance Rachell Branham MD R1 December 23, 2017 09:19
[2017-12-23] MEDS: HEPARIN SODIUM - SQ 10,000 UNITS/ML VIAL SQ SCH ×2 (09:43→20:01)
[2017-12-23] MEDS: CIPROFLOXACIN 500 MG TAB PO SCH (12:32)
--- NOTE | 2017-12-23 14:29 | HHI.GIFU ---
Subjective Remarks Patient he is able to dangle on side of the bed with family assisting him to sit up Still has facial grimace with some abdominal pain but does note some mild improvement Decreased diarrhea today Stable hemoglobin 10.8 Note negative C. difficile, positive Shigella (Radha Vigil) Objective Vitals I&O Vital Signs Date Time Temp Pulse Resp B/P (MAP) Pulse Ox O2 Delivery O2 Flow Rate FiO2 12/23/17 12:00 97.5 67 18 158/67 (97) 96 12/23/17 08:00 97.4 69 18 165/72 (103) 98 12/23/17 04:00 97.0 63 16 115/69 (84) 96 12/23/17 00:47 68 12/23/17 00:00 97.3 65 16 145/66 (92) 98 12/22/17 20:00 97.0 65 16 144/71 (95) 96 12/22/17 16:00 97.3 70 18 149/67 (94) 97 I/O 12/22/17 12/22/17 12/22/17 12/23/17 12/23/17 12/23/17 07:00 15:00 23:00 07:00 15:00 23:00 Intake Total 1000 ml 1000 ml 600 ml 1000 ml Output Total 500 ml Balance 1000 ml 1000 ml 600 ml -500 ml 1000 ml Intake Oral 600 ml IV Total 1000 ml 1000 ml 1000 ml Output Urine Total 500 ml # Voids 4 # Bowel Movements 4 4 2 Laboratory Laboratory Tests Test 12/22/17 16:25 Hemoglobin 10.8 Hematocrit 33.0 Date/Time Source Procedure Growth Status 12/21/17 06:40 Blood Peripheral Aerobic Blood Culture - Preliminary NO GROWTH IN 2 DAYS Resulted 12/21/17 06:40 Blood Peripheral Anaerobic Blood Culture - Preliminary NO GROWTH IN 2 DAYS Resulted 12/21/17 08:45 Stool Stool Cryptosporidium Exam - Final NEGATIVE - NO CRYPTOSPORIDIUM ANTIGEN... Complete 12/21/17 08:45 Stool Stool Stool Pus (KIAN) - Final MODERATE WBC'S Complete 12/21/17 08:45 Stool Stool Giardia Antigen (KIAN) - Final NEGATIVE - NO GIARDIA ANTIGEN DETECTE... Complete Imaging Last Impressions Abdomen/Pelvis CT 12/21/17 9171 Signed Impressions: CONCLUSION: 1. Nonspecific, nonobstructive bowel gas pattern. There is circumferential wal l thickening involving portions of the transverse colon which could indicate co litis. 2. Cholelithiasis with no gallbladder wall thickening or inflammatory change. Chest X-Ray 12/21/17 0138 Signed Impressions: CONCLUSION: No acute cardiopulmonary disease. Physical Exam HEENT: normocephalic; atraumatic; no jaundice. Obesity especially around abdominal region NECK: Neck is supple, CHEST: Chest is clear no obvious rhonchi CARDIAC: Regular rate and rhythm ABDOMEN: Large, soft, tympanic, passing gas mild generalized mid abdomen tenderness no hepatosplenomegaly; bowel sounds present EXTREMITIES: No lower extremity edema. SKIN: Normal; no rash; no jaundice. SUPPLIER QUALITY: Answers simple questions, more alert today (Radha Vigil) Assessment and Plan Plan Assessment: - Hematochezia, on Brilinta H/H currently 12.7/37.5 Pt reports diarrhea for the past four days, bloody stools for the past 2 days, multiple episodes, 7 yesterday and 3 so far today. Associated fevers, resolved yesterday. Nausea and emesis, last episode yesterday. Denies hematemesis and coffee ground emesis. Abdominal pain, lower, described as "gas pains", constant. Denies history of GIB Has never had EGD or colonoscopy. Risk factors: Brilinta, also takes ibuprofen occasionally. Recent travel- spent 7 months in [facility], returned yesterday C. Diff negative. Rotavirus negative. Denies ETOH and smoking CT abdomen and pelvis W/O IV contrast (12/21) --> Nonspecific, nonobstructive bowel gas pattern. There is circumferential wall thickening involving portion of the transverse colon which could indicate colitis. Cholelithiasis with no gallbladder wall thickening or inflammatory change. 12/22/2017 patient was initially scheduled for EGD colonoscopy today but was found to be positive for Shigella. C. difficile negative, moderate amount of WBCs in stool, [place] negative. CT scan results noted. Hemoglobin 10.9, no obvious nausea or vomiting, decreased appetite encouraged clear liquids. Abdomen continues to be bloated and distended with generalized mid abdominal discomfort to light palpation We will consider doing EGD and colonoscopy once patient has taken p.o. Cipro and recovered from his symptoms of Shigella. Possible next week versus outpatient. 12/23/2017 patient still having bouts of abdominal pain and tenderness especially when sitting on side of the bed or any increased activity and 0.8, C. difficile negative. Patient continues on treatment for Shigella after his recent travel to [place] . Plan: Diet Cipro 500 Encourage turning and moving in the bed to relieve gas pains and bloating, increase activity with safety of someone beside him Monitor labs Antiemetics Continue Brilinta on hold Further recommendations based on results of above and clinical course, will consider EGD and colonoscopy after treatment regimen completed Pt has been seen and examined by myself and Dr. Kline and this note is written on his behalf (Radha Vigil) Physician Comments Patient seen and examined Agree with above Continue with current supportive care Monitor labs Okay to resume anticoagulation (Alex Kline MD) Radha Vigil December 23, 2017 14:29 Alex Kline MD December 23, 2017 15:06
[2017-12-23 14:32] LABS: HEMATOCRIT 34.2 % (39.0-51.0); HEMOGLOBIN 10.9 GM/DL (13.0-17.0); MEAN CELL VOLUME 84.9 FL (80.0-100.0); MEAN CORPUSCULAR HEMOGLOBIN 27.1 PG (27.0-34.0); MEAN CORPUSCULAR HGB CONC 31.9 % (32.0-36.0); MEAN PLATELET VOLUME 9.6 FL (7.0-11.0); PLATELET COUNT 228 TH/MM3 (150-450); RED BLOOD COUNT 4.02 MIL/MM3 (4.50-5.90); RED CELL DISTRIBUTION WIDTH 14.6 % (11.6-17.2); WHITE BLOOD COUNT 21.4 TH/MM3 (4.0-11.0)
[2017-12-23 15:02] LABS: BICARBONATE 15.5 MEQ/L (21.0-32.0); CALCIUM 8.1 MG/DL (8.5-10.1); CREATININE 1.72 MG/DL (0.60-1.30)
[2017-12-23] MEDS: AMITRIPTYLINE HCL 75 MG TAB PO SCH (19:53)
[2017-12-24] VITALS: BP 173/77; PULSE 75; RESP 18; TEMP 98; O2SAT 97
[2017-12-24 04:00] VITALS: BP 115/59; PULSE 81; RESP 18; TEMP 98; O2SAT 98
[2017-12-24] MEDS: cloNIDine HCL 0.1 MG TAB PO PRN ×2 (04:30→20:21)
[2017-12-24] MEDS: CIPROFLOXACIN 500 MG TAB PO SCH (04:30)
[2017-12-24] MEDS: ACETAMINOPHEN/HYDROcodone 325 MG/5 MG TAB PO PRN (04:39)
[2017-12-24 07:26] LABS: HEMATOCRIT 33.2 % (39.0-51.0); HEMOGLOBIN 10.9 GM/DL (13.0-17.0); MEAN CELL VOLUME 85.2 FL (80.0-100.0); MEAN CORPUSCULAR HEMOGLOBIN 27.9 PG (27.0-34.0); MEAN CORPUSCULAR HGB CONC 32.7 % (32.0-36.0); MEAN PLATELET VOLUME 9.6 FL (7.0-11.0); PLATELET COUNT 216 TH/MM3 (150-450); RED CELL DISTRIBUTION WIDTH 14.4 % (11.6-17.2); WHITE BLOOD COUNT 17.8 TH/MM3 (4.0-11.0)
[2017-12-24 08:00] VITALS: BP 184/84; PULSE 76; RESP 19; TEMP 97.7; O2SAT 97
[2017-12-24 08:04] LABS: CALCIUM 7.9 MG/DL (8.5-10.1); CREATININE 1.61 MG/DL (0.60-1.30)
--- NOTE | 2017-12-24 08:47 | HHI.FPPN ---
Subjective Remarks No acute events overnight. Daughter at bedside. Patient lying comfortable in bed. Patient states that his right arm is sore but is not anything new. His abdominal pain has improved. Rates it as 2 out of 10. He also states that his diarrhea has improved as well. 3 bowel movements yesterday per daughter. Daughter states that patient has been confused overnight associated with and possibly to pain medications. Tolerating diet. no other complaints. Denies chest pain, shortness of breath, nausea and vomiting. Daughter and patient are comfortable at home this morning. (Rachell Branham MD R1) Objective Vitals Vital Signs Date Time Temp Pulse Resp B/P (MAP) Pulse Ox O2 Delivery O2 Flow Rate FiO2 12/24/17 04:00 98.0 81 18 115/59 (77) 98 12/24/17 00:00 98.0 75 18 173/77 (109) 97 12/23/17 20:00 97.6 76 18 214/94 (134) 95 12/23/17 18:06 96 21 12/23/17 16:00 97.8 73 18 157/71 (99) 97 12/23/17 12:00 97.5 67 18 158/67 (97) 96 I/O 12/23/17 12/23/17 12/23/17 12/24/17 12/24/17 12/24/17 07:00 15:00 23:00 07:00 15:00 23:00 Intake Total 1000 ml 720 ml Output Total 500 ml 450 ml 600 ml Balance -500 ml 1000 ml 270 ml -600 ml Intake Oral 720 ml IV Total 1000 ml Output Urine Total 500 ml 450 ml 600 ml # Bowel Movements 2 0 (Rachell Branham MD R1) Result Diagram: 12/24/1741112/24/17411 Objective Remarks GENERAL: Well nourished, well developed male resting comfortably in bed. SKIN: Warm and dry. CARDIOVASCULAR: Regular rate and rhythm. RESPIRATORY: No accessory muscle use. Clear to auscultation. Breath sounds equal bilaterally. GASTROINTESTINAL: Abdomen soft, nontender, mildly distended. MUSCULOSKELETAL: Extremities without clubbing, cyanosis, or edema. No obvious deformities. NEUROLOGICAL: Awake and alert. No obvious cranial nerve deficits. Motor grossly within normal limits. Normal speech. PSYCHIATRIC: Appropriate mood and affect; insight and judgment normal. (Rachell Branham MD R1) A/P Assessment and Plan 67-year-old visually impaired male from [facility] with past medical history of dilated cardiomyopathy, CABG in 2016, PVD, hypertension, DM, and hyperlipidemia who presented to the ED for lower abdominal pain and diarrhea. Admitted for fluids and IV antibiotics. Discharge Planning pending repeat C. difficile and UA Anticipate discharge home today Home with home health PT (Rachell Branham MD R1) Attending Attestation Patient examined independently of resident physicians in case discussed with resident physician I have read the above note and agree with the assessment/plan as discussed with me I was involved in all medical decision making for this patient Gareth Tello MD (Gareth Tello MD) Problem List: (1) Shigella gastroenteritis ICD Codes: A03.9 - Shigellosis, unspecified Status: Acute Plan: Antibiotics: s/p Zosyn 3.375 GM once and Flagyl 500mg IV once in the ED, s/p Flagyl 500mg IV Last dose this morning completed of Ciprofloxacin 500mg PO q18h, renally dosed by pharmacy, finished total 3 day course GI consulted, appreciate recommendations -plan for EGD/colonoscopy outpatient, follow-up in 1 week Tolerating diabetic diet Titrate NS IV fluids Zofran as needed for nausea Labs & Imaging: Afebrile Lactic acid wnl Blood cultures no growth in 2 days Stool studies positive for Shigella Abdominal/pelvis CT demonstrates nonspecific, nonobstructive bowel gas pattern. There is a cervical pharyngeal wall thickening involving portions of the transverse colon which could indicate colitis. Cholelithiasis with no gallbladder wall thickening or inflammatory change. (2) Elevated white blood cell count, unspecified ICD Codes: D72.829 - Elevated white blood cell count, unspecified Status: Acute Plan: WBC elevated at12.9-->21.4-->17.8 C.diff PCR negative on 12/21, UA 12/21, rare bacteria, trace blood We will order repeat C. difficile and UA to rule out possible C.diff infection and UTI C.diff and UA pending, if negative patient cleared for discharge today (3) SHAE (acute kidney injury) ICD Codes: N17.9 - Acute kidney failure, unspecified Status: Acute Plan: BUN of 35 with creatinine of 2.86 on admission Baseline Cr ~1.2 BUN/Creatine trending down SHAE most likely due to dehydration and hypoperfusion Titrate IV fluids Avoid nephrotoxic agents (4) Coronary artery disease ICD Codes: I25.10 - Atherosclerotic heart disease of [place] coronary artery without angina pectoris Status: Acute Plan: Held home Ticagrelor due to bloody diarrhea and anemia Troponin and EKG stable Echo with 2D Doppler demonstrates normal left ventricular size. Aortic valve sclerosis is present. Trace tricuspid valve regurg. Pulmonary arterial pressure is 30.3mmHg. Ejection fraction of 60-65% (5) Anemia ICD Codes: D64.9 - Anemia, unspecified Status: Acute Plan: H&H stable Transfuse if < 7 or if symptomatic (6) Diabetes mellitus ICD Codes: E11.9 - Type 2 diabetes mellitus without complications Status: Chronic Plan: Reports uncontrolled blood sugars at home, ranging in the 500s Held home insulin Low sliding scale A1c 7.9 Blood sugars over the past 24 hours, 149, 151, 244, patient received 3 units total (7) Hypertension ICD Codes: I10 - Essential (primary) hypertension Status: Chronic Plan: Held home lisinopril and furosemide due to SHAE Patient's blood pressure elevated at 184/84 this morning, administer Clonidine Continue carvedilol 12.5 mg twice daily Clonidine 0.1 mg as needed for BP>180/100 (8) Hyperlipidemia ICD Codes: E78.5 - Hyperlipidemia, unspecified Status: Chronic Plan: Continue pravastatin 40 mg p.o. daily (9) Depression ICD Codes: F32.9 - Major depressive disorder, single episode, unspecified Status: Chronic Plan: Amitriptyline 150mg PO HS (10) Nutrition, metabolism, and development symptoms ICD Codes: R63.8 - Other symptoms and signs concerning food and fluid intake Status: Acute Plan: Diet diabetic diet Fluids: Titrate IV fluids Vitals every 4, monitor I's and O's, telemetry DVT ppx: SCDs and heparin 5000units q12h (Rachell Branham MD R1) Problem Qualifiers (1) Coronary artery disease: Qualified Codes: I25.119 - Atherosclerotic heart disease of [place] coronary artery with unspecified angina pectoris (2) Anemia: Qualified Codes: D64.89 - Other specified anemias (3) Diabetes mellitus: (4) Depression: Qualified Codes: F33.9 - Major depressive disorder, recurrent, unspecified Rachell Branham MD R1 December 24, 2017 08:47 Gareth Tello MD December 24, 2017 11:48
[2017-12-24] MEDS: SODIUM CHLORIDE 0.9% FLUSH 10 ML FLUSH IV FLUSH SCH ×2 (09:00→20:23)
[2017-12-24] MEDS: PRAVASTATIN SOD 40 MG TAB PO SCH (09:23)
[2017-12-24] MEDS: CARVEDILOL 12.5 MG TAB PO SCH ×2 (09:23→20:21)
--- NOTE | 2017-12-24 09:23 | HHI.DS ---
Discharge Summary Admission Date December 21, 2017 at 06:47 Admitting Diagnosis Colitis (1) Shigella gastroenteritis Plan: Antibiotics: s/p Zosyn 3.375 GM once and Flagyl 500mg IV once in the ED, s/p Flagyl 500mg IV Last dose this morning completed of Ciprofloxacin 500mg PO q18h, renally dosed by pharmacy, total 3 day course GI consulted, appreciate recommendations -plan for EGD/colonoscopy outpatient, follow-up in 1 week Tolerating diabetic diet Titrate NS IV fluids Zofran as needed for nausea Labs & Imaging: Afebrile WBC trending down Lactic acid wnl Blood cultures no growth in 1 day Stool studies positive for Shigella Abdominal/pelvis CT demonstrates nonspecific, nonobstructive bowel gas pattern. There is a cervical pharyngeal wall thickening involving portions of the transverse colon which could indicate colitis. Cholelithiasis with no gallbladder wall thickening or inflammatory change. ICD Codes: A03.9 - Shigellosis, unspecified Status: Acute (2) SHAE (acute kidney injury) Plan: BUN of 35 with creatinine of 2.86 on admission Baseline Cr ~1.2 BUN/Creatine trending down SHAE most likely due to dehydration and hypoperfusion Titrate IV fluids Avoid nephrotoxic agents ICD Codes: N17.9 - Acute kidney failure, unspecified Status: Acute (3) Coronary artery disease Plan: Held home Ticagrelor due to bloody diarrhea and anemia Troponin and EKG stable Echo with 2D Doppler demonstrates normal left ventricular size. Aortic valve sclerosis is present. Trace tricuspid valve regurg. Pulmonary arterial pressure is 30.3mmHg. Ejection fraction of 60-65% ICD Codes: I25.10 - Atherosclerotic heart disease of [place] coronary artery without angina pectoris Status: Acute (4) Anemia Plan: H&H stable Transfuse if < 7 or if symptomatic ICD Codes: D64.9 - Anemia, unspecified Status: Acute (5) Diabetes mellitus Plan: Reports uncontrolled blood sugars at home, ranging in the 500s Held home insulin Low sliding scale A1c 7.9 Blood sugars over the past 24 hours, 149, 151, 244, patient received 3 units total ICD Codes: E11.9 - Type 2 diabetes mellitus without complications Status: Chronic (6) Hypertension Plan: Held home lisinopril and furosemide due to SHAE Continue carvedilol 12.5 mg twice daily Clonidine 0.1 mg as needed for BP>180/100 ICD Codes: I10 - Essential (primary) hypertension Status: Chronic (7) Hyperlipidemia Plan: Continue pravastatin 40 mg p.o. daily ICD Codes: E78.5 - Hyperlipidemia, unspecified Status: Chronic (8) Depression Plan: Amitriptyline 150mg PO HS ICD Codes: F32.9 - Major depressive disorder, single episode, unspecified Status: Chronic (9) Nutrition, metabolism, and development symptoms Plan: Diet diabetic diet Fluids: Titrate IV fluids Vitals every 4, monitor I's and O's, telemetry DVT ppx: SCDs and heparin 5000units q12h ICD Codes: R63.8 - Other symptoms and signs concerning food and fluid intake Status: Acute Brief History Very pleasant 67-year-old male who presents to the hospital with 4 days of abdominal distention/cramping abdominal pain, diarrhea and bloody bowel movements. He has been in [facility] for the last 6-7 months, returning to [place] 2 days ago. While in [facility], 4 days ago he began having cramping abdominal pain followed by watery diarrhea that turned bloody with what is described as bright red blood. There was associated nausea and bloating with this, however he specifically denies fevers or chills, denies appetite change, denies weight change, denies recent antibiotic use, and denies melena. He also denies any new foods or changes in his diet, he denies any sick contacts, he denies any travel outside of [facility] or [place]. CBC/BMP: 12/24/17 0412 12/24/17 0412 Significant Findings Laboratory Tests Test 12/21/17 10:40 12/21/17 12:50 12/21/17 14:25 12/21/17 21:50 Troponin I LESS THAN 0.02 NG/ML LESS THAN 0.02 NG/ML Hemoglobin 12.0 GM/DL (13.0-17.0) Hematocrit 34.8 % (39.0-51.0) Hemoglobin A1c 7.9 % (4.3-6.0) Test 12/22/17 06:53 12/22/17 16:25 12/23/17 13:31 12/24/17 04:12 White Blood Count 12.9 TH/MM3 (4.0-11.0) 21.4 TH/MM3 (4.0-11.0) 17.8 TH/MM3 (4.0-11.0) Red Blood Count 3.93 MIL/MM3 (4.50-5.90) 4.02 MIL/MM3 (4.50-5.90) 3.90 MIL/MM3 (4.50-5.90) Hemoglobin 10.9 GM/DL (13.0-17.0) 10.8 GM/DL (13.0-17.0) 10.9 GM/DL (13.0-17.0) 10.9 GM/DL (13.0-17.0) Hematocrit 33.2 % (39.0-51.0) 33.0 % (39.0-51.0) 34.2 % (39.0-51.0) 33.2 % (39.0-51.0) Monocytes (%) (Auto) 18.6 % (0.0-8.0) Neutrophils # (Auto) 8.4 TH/MM3 (1.8-7.7) Monocytes # (Auto) 2.4 TH/MM3 (0-0.9) Band Neutrophils % 12 % (0-6) Monocytes % 11 % (0-8) Toxic Granulation 1+ (NORMAL) Blood Urea Nitrogen 33 MG/DL (7-18) 30 MG/DL (7-18) 27 MG/DL (7-18) Creatinine 2.21 MG/DL (0.60-1.30) 1.72 MG/DL (0.60-1.30) 1.61 MG/DL (0.60-1.30) Random Glucose 168 MG/DL (74-106) 155 MG/DL (74-106) 206 MG/DL (74-106) Calcium Level 8.0 MG/DL (8.5-10.1) 8.1 MG/DL (8.5-10.1) 7.9 MG/DL (8.5-10.1) Potassium Level 3.3 MEQ/L (3.5-5.1) Chloride Level 109 MEQ/L (98-107) 111 MEQ/L (98-107) 113 MEQ/L (98-107) Carbon Dioxide Level 19.7 MEQ/L (21.0-32.0) 15.5 MEQ/L (21.0-32.0) 17.0 MEQ/L (21.0-32.0) Estimat Glomerular Filtration Rate 36 ML/MIN (>89) 48 ML/MIN (>89) 52 ML/MIN (>89) Mean Corpuscular Hemoglobin Concent 31.9 % (32.0-36.0) Anion Gap 16 MEQ/L (5-15) PE at Discharge GENERAL: Well nourished, well developed male resting comfortably in bed. SKIN: Warm and dry. CARDIOVASCULAR: Regular rate and rhythm. RESPIRATORY: No accessory muscle use. Clear to auscultation. Breath sounds equal bilaterally. GASTROINTESTINAL: Abdomen soft, nontender, mildly distended. MUSCULOSKELETAL: Extremities without clubbing, cyanosis, or edema. No obvious deformities. NEUROLOGICAL: Awake and alert. No obvious cranial nerve deficits. Motor grossly within normal limits. Normal speech. PSYCHIATRIC: Appropriate mood and affect; insight and judgment normal. Rachell Branham MD R1 December 24, 2017 09:23
[2017-12-24] MEDS: HEPARIN SODIUM - SQ 10,000 UNITS/ML VIAL SQ SCH (09:24)
[2017-12-24] MEDS: INSULIN ASPART SUPPLEMENTAL SCALE SQ SCH ×4 (09:24→20:24)
[2017-12-24] MEDS: ACETAMINOPHEN 325 MG TAB PO PRN ×2 (09:30→16:05)
[2017-12-24] MEDS ORDERED: amLODIPine BESYLATE 5 MG TAB PO ONE (10:15)
[2017-12-24] MEDS: SODIUM CHLOR 0.9% 1000 ML INJ 1,000 ML IV SCH (11:24)
[2017-12-24 12:00] VITALS: BP 181/84; PULSE 76; RESP 16; TEMP 97.7; O2SAT 97
[2017-12-24 12:47] LABS: BACTERIA, URINE RARE /hpf; BILIRUBIN, URINE NEG (NEG); BLOOD, URINE NEG (NEG); GLUCOSE,URINE 300 mg/dL (NEG); KETONE, URINE 40 mg/dL (NEG); MUCUS URINE FEW /lpf (OCC); NITRITE,URINE NEG (NEG); PH, URINE 5.5 (5.0-8.5); URINE COLOR YELLOW (YELLW/STRAW); URINE LEUKOCYTE ESTERASE NEG (NEG)
--- NOTE | 2017-12-24 14:15 | HHI.FF ---
Face to Face Verification Diagnosis: (1) Shigella gastroenteritis (2) Diabetes mellitus (3) Blindness of both eyes (4) SHAE (acute kidney injury) (5) Elevated white blood cell count, unspecified Physical Therapy Order: Evaluate and Treat, Improve ambulation Home Health Nursing Order: Medical education Signs/symptoms of disease process Diabetic education Home Health Aide Order: To Assist In: Bathing and personal care I have seen patient Juan Renner on 12/24/17. My clinical findings support the need for the requested home health care services because: Ltd mobility - disease progression Deconditioned w/ increased weakness Limited ability to care for self High risk of falls I certify that my clinical findings support that this patient is homebound because: Impaired cognitive ability/safety Unsteady gait/balance Moisés Varghese MD R1 December 24, 2017 14:15
--- NOTE | 2017-12-24 14:33 | HHI.GIFU ---
Subjective Remarks Pt is resting in bed, accompanied by daughter, still having diarrhea and mild abd pain (Crow,Ketty DJANGO DEVELOPER) Objective Vitals I&O Vital Signs Date Time Temp Pulse Resp B/P (MAP) Pulse Ox O2 Delivery O2 Flow Rate FiO2 12/24/17 12:00 97.7 76 16 181/84 (116) 97 12/24/17 08:00 97.7 76 19 184/84 (117) 97 12/24/17 04:00 98.0 81 18 115/59 (77) 98 12/24/17 00:00 98.0 75 18 173/77 (109) 97 12/23/17 20:00 97.6 76 18 214/94 (134) 95 12/23/17 18:06 96 21 12/23/17 16:00 97.8 73 18 157/71 (99) 97 I/O 12/23/17 12/23/17 12/23/17 12/24/17 12/24/17 12/24/17 07:00 15:00 23:00 07:00 15:00 23:00 Intake Total 1000 ml 720 ml Output Total 500 ml 450 ml 600 ml Balance -500 ml 1000 ml 270 ml -600 ml Intake Oral 720 ml IV Total 1000 ml Output Urine Total 500 ml 450 ml 600 ml # Bowel Movements 2 0 Laboratory Laboratory Tests Test 12/24/17 04:12 12/24/17 12:20 White Blood Count 17.8 Red Blood Count 3.90 Hemoglobin 10.9 Hematocrit 33.2 Mean Corpuscular Volume 85.2 Mean Corpuscular Hemoglobin 27.9 Mean Corpuscular Hemoglobin Concent 32.7 Red Cell Distribution Width 14.4 Platelet Count 216 Mean Platelet Volume 9.6 Blood Urea Nitrogen 27 Creatinine 1.61 Random Glucose 206 Calcium Level 7.9 Sodium Level 143 Potassium Level 3.8 Chloride Level 113 Carbon Dioxide Level 17.0 Anion Gap 13 Estimat Glomerular Filtration Rate 52 Urine Color YELLOW Urine Turbidity CLEAR Urine pH 5.5 Urine Specific [place] 1.009 Urine Protein TRACE Urine Glucose (UA) 300 Urine Ketones 40 Urine Occult Blood NEG Urine Nitrite NEG Urine Bilirubin NEG Urine Urobilinogen LESS THAN 2.0 Urine Leukocyte Esterase NEG Urine WBC 3 Urine Bacteria RARE Urine Mucus FEW Microscopic Urinalysis Comment CULT NOT INDICATED Date/Time Source Procedure Growth Status 12/21/17 06:40 Blood Peripheral Aerobic Blood Culture - Preliminary NO GROWTH IN 3 DAYS Resulted 12/21/17 06:40 Blood Peripheral Anaerobic Blood Culture - Preliminary NO GROWTH IN 3 DAYS Resulted 12/21/17 08:45 Stool Stool Cryptosporidium Exam - Final NEGATIVE - NO CRYPTOSPORIDIUM ANTIGEN... Complete 12/21/17 08:45 Stool Stool Stool Pus (KIAN) - Final MODERATE WBC'S Complete 12/21/17 08:45 Stool Stool Giardia Antigen (KIAN) - Final NEGATIVE - NO GIARDIA ANTIGEN DETECTE... Complete Imaging Last Impressions Abdomen/Pelvis CT 12/21/17 0328 Signed Impressions: CONCLUSION: 1. Nonspecific, nonobstructive bowel gas pattern. There is circumferential wal l thickening involving portions of the transverse colon which could indicate co litis. 2. Cholelithiasis with no gallbladder wall thickening or inflammatory change. Chest X-Ray 12/21/17 0138 Signed Impressions: CONCLUSION: No acute cardiopulmonary disease. Physical Exam HEENT: normocephalic; atraumatic; no jaundice. NECK: Neck is supple, CHEST: Chest is clear no obvious rhonchi CARDIAC: Regular rate and rhythm ABDOMEN: Large, soft, tympanic, passing gas mild generalized mid abdomen tenderness no hepatosplenomegaly; bowel sounds present EXTREMITIES: No lower extremity edema. SKIN: Normal; no rash; no jaundice. FRUIT HARVEST WORKER: Answers simple questions, more alert today (Ketty Maria) Assessment and Plan Plan Assessment: - Hematochezia, on Brilinta H/H currently 12.7/37.5 Pt reports diarrhea for the past four days, bloody stools for the past 2 days, multiple episodes, 7 yesterday and 3 so far today. Associated fevers, resolved yesterday. Nausea and emesis, last episode yesterday. Denies hematemesis and coffee ground emesis. Abdominal pain, lower, described as "gas pains", constant. Denies history of GIB Has never had EGD or colonoscopy. Risk factors: Brilinta, also takes ibuprofen occasionally. Recent travel- spent 7 months in [place], returned yesterday C. Diff negative. Rotavirus negative. Denies ETOH and smoking CT abdomen and pelvis W/O IV contrast (12/21) --> Nonspecific, nonobstructive bowel gas pattern. There is circumferential wall thickening involving portion of the transverse colon which could indicate colitis. Cholelithiasis with no gallbladder wall thickening or inflammatory change. 12/22/2017 patient was initially scheduled for EGD colonoscopy today but was found to be positive for Shigella. C. difficile negative, moderate amount of WBCs in stool, Vega negative. CT scan results noted. Hemoglobin 10.9, no obvious nausea or vomiting, decreased appetite encouraged clear liquids. Abdomen continues to be bloated and distended with generalized mid abdominal discomfort to light palpation We will consider doing EGD and colonoscopy once patient has taken p.o. Cipro and recovered from his symptoms of Shigella. Possible next week versus outpatient. 12/23/2017 patient still having bouts of abdominal pain and tenderness especially when sitting on side of the bed or any increased activity and 0.8, C. difficile negative. Patient continues on treatment for Shigella after his recent travel to [place] . (12/24/17) Pt still with mild abd pain, diarrhea, worsening wbc, repeat urine and stools for C-diff ordered, HH stable, no bleeding reported Plan: CATRACHO Cipro 500 Await repeat stools results Monitor labs Antiemetics Continue Brilinta on hold Further recommendations based on results of above and clinical course, will consider EGD and colonoscopy after treatment regimen completed Pt has been seen and examined by myself and Dr. Kline and this note is written on his behalf (Ketty Maria) Physician Comments Patient seen and examined Agree with above Continue with current supportive care Monitor labs Okay to resume anticoagulation at this point patient appears to be stable (Alex Kline MD) Ketty Maria December 24, 2017 14:33 Alex Kline MD December 24, 2017 19:39
[2017-12-24 16:00] VITALS: BP 166/72; PULSE 66; RESP 18; TEMP 97.5; O2SAT 97
[2017-12-24] MEDS ORDERED: ACETAMINOPHEN 325 MG TAB PO PRN (16:45)
[2017-12-24] MEDS: TICAGRELOR 90 MG TAB PO SCH ×2 (16:57→20:21)
[2017-12-24 20:00] VITALS: BP 197/86; PULSE 75; PULSE 76; RESP 16; TEMP 97.9; O2SAT 98
[2017-12-24] MEDS: AMITRIPTYLINE HCL 75 MG TAB PO SCH (20:21)
[2017-12-24] MEDS: INSULIN DETEMIR 100 UNITS/ML VIAL SQ SCH (20:22)
[2017-12-24] MEDS ORDERED: TICAGRELOR 90 MG TAB PO SCH (21:00)
[2017-12-25] VITALS: BP 180/76; PULSE 71; PULSE 72; RESP 16; TEMP 98.5; O2SAT 100
[2017-12-25] MEDS: CIPROFLOXACIN 500 MG TAB PO SCH (00:03)
[2017-12-25 04:00] VITALS: BP 157/67; PULSE 77; PULSE 79; RESP 16; TEMP 97.7; O2SAT 100
[2017-12-25] MEDS: SODIUM CHLOR 0.9% 1000 ML INJ 1,000 ML IV SCH (07:02)
[2017-12-25 07:43] LABS: AUTOMATED NEUTROPHIL # 14.2 TH/MM3 (1.8-7.7); BASOPHIL % 0.2 % (0.0-2.0); EOSINOPHIL # 0.1 TH/MM3 (0-0.4); EOSINOPHIL % 0.7 % (0.0-4.0); HEMATOCRIT 31.7 % (39.0-51.0); HEMOGLOBIN 10.5 GM/DL (13.0-17.0); LYMPH % 12.1 % (9.0-44.0); LYMPHOCYTE # 2.2 TH/MM3 (1.0-4.8); MEAN CELL VOLUME 83.9 FL (80.0-100.0); MEAN CORPUSCULAR HEMOGLOBIN 27.8 PG (27.0-34.0); MEAN CORPUSCULAR HGB CONC 33.2 % (32.0-36.0); MEAN PLATELET VOLUME 9.3 FL (7.0-11.0); MONO % 9.4 % (0.0-8.0); MONOCYTE # 1.7 TH/MM3 (0-0.9); NEUT % 77.6 % (16.0-70.0); PLATELET COUNT 205 TH/MM3 (150-450); RED BLOOD COUNT 3.77 MIL/MM3 (4.50-5.90); RED CELL DISTRIBUTION WIDTH 14.6 % (11.6-17.2); WHITE BLOOD COUNT 18.3 TH/MM3 (4.0-11.0)
[2017-12-25 08:00] VITALS: BP 193/84; PULSE 79; RESP 17; TEMP 98.1; O2SAT 97
--- NOTE | 2017-12-25 08:14 | HHI.FPPN ---
Subjective Remarks No acute events overnight. Daughter at bedside. Patient resting comfortably in bed. Patient states that he is still having right arm pain. He also endorses shortness of breath. O2 sat 100% on room air. Lung exam shows coarse breath sounds. Patient denies chest pain. Chest x-ray this morning demonstrated no acute process. Daughter states that patient still appears confused overnight and is hollering out names in seeing objects that are not there. Initially this was associated with owning and possibly pain medications. However pain medications were stopped yesterday and patient is still confused. Daughter would like patient to be on [place] again. Rates abdominal pain as 5 out of 10. 5 BMs recorded yesterday. Repeat C. difficile was negative. Daughter reports that patient is not eating as much. Endorses decreased appetite. Patient did eat dinner last night without nausea and vomiting. (Rachell Branham MD R1) Objective Vitals Vital Signs Date Time Temp Pulse Resp B/P (MAP) Pulse Ox O2 Delivery O2 Flow Rate FiO2 12/25/17 04:00 77 12/25/17 04:00 97.7 79 16 157/67 (97) 100 12/25/17 00:00 98.5 72 16 180/76 (110) 100 12/25/17 00:00 71 12/24/17 20:00 97.9 76 16 197/86 (123) 98 12/24/17 20:00 75 12/24/17 16:00 97.5 66 18 166/72 (103) 97 12/24/17 12:00 97.7 76 16 181/84 (116) 97 I/O 12/24/17 12/24/17 12/24/17 12/25/17 12/25/17 12/25/17 07:00 15:00 23:00 07:00 15:00 23:00 Intake Total 1360 ml 650 ml Output Total 600 ml Balance -600 ml 1360 ml 650 ml Intake Oral 360 ml 650 ml IV Total 1000 ml Output Urine Total 600 ml # Voids 4 3 # Bowel Movements 4 1 (Rachell Branham MD R1) Result Diagram: 12/25/17 0618 12/24/17 0412 Objective Remarks GENERAL: Well nourished, well developed male resting comfortably in bed. SKIN: Warm and dry. CARDIOVASCULAR: Regular rate and rhythm. RESPIRATORY: Poor air movement, coarse breath sounds GASTROINTESTINAL: Abdomen, firm, mildy tender throughout, moderately distended. MUSCULOSKELETAL: Extremities without clubbing, cyanosis, or edema. No obvious deformities. NEUROLOGICAL: Awake and alert. No obvious cranial nerve deficits. Motor grossly within normal limits. Normal speech. PSYCHIATRIC: Appropriate mood and affect; insight and judgment normal. (Rachell Branham MD R1) A/P Assessment and Plan 67-year-old visually impaired male from [facility] with past medical history of dilated cardiomyopathy, CABG in 2016, PVD, hypertension, DM, and hyperlipidemia who presented to the ED for lower abdominal pain and diarrhea. Admitted for fluids and IV antibiotics. Discharge Planning Home with home health PT (Rachell Branham MD R1) Attending Attestation Patient examined independently and case discussed with resident physicians I have read the above note and agree with the assessment/plan as discussed with me I was involved in all medical decision making for this patient Continued abdominal pain with leukocytosis and decreased oral intake -Appreciate GI recommendations -Repeat CT scan to rule out abdominal abscess -Ciprofloxacin changed to Rocephin -Consider infectious disease consult Hypertension -Home antihypertensive have been being held secondary to dehydration and AK I -With resolution of AK I, home blood pressure medications including lisinopril and furosemide have been restarted Gareth Tello MD (Gareth Tello MD) Problem List: (1) Shigella gastroenteritis ICD Codes: A03.9 - Shigellosis, unspecified Status: Acute Plan: Antibiotics: s/p Zosyn 3.375 GM once and Flagyl 500mg IV once in the ED, s/p Flagyl 500mg IV Continue ciprofloxacin 500mg PO q18h renally dosed by pharmacy, (started 12/22- ) spoke with GI, GI recommends continuing Cipro for total 5-day course GI consulted, appreciate recommendations -plan for EGD/colonoscopy outpatient, follow-up in 1 week Tolerating diabetic diet Zofran as needed for nausea Labs & Imaging: Afebrile Lactic acid wnl Blood cultures no growth in 2 days Stool studies positive for Shigella Abdominal/pelvis CT demonstrates nonspecific, nonobstructive bowel gas pattern. There is a cervical pharyngeal wall thickening involving portions of the transverse colon which could indicate colitis. Cholelithiasis with no gallbladder wall thickening or inflammatory change. (2) Elevated white blood cell count, unspecified ICD Codes: D72.829 - Elevated white blood cell count, unspecified Status: Acute Plan: WBC elevated at12.9-->21.4-->17.8-->18.3 C.diff PCR negative on 12/21, UA 12/21, rare bacteria, trace blood Repeat C. difficile negative-12/24 Repeat UA-12/24-initiated glucose and ketones (3) SHAE (acute kidney injury) ICD Codes: N17.9 - Acute kidney failure, unspecified Status: Resolved Plan: BUN of 35 with creatinine of 2.86 on admission, Baseline Cr ~1.2 Resolved SHAE most likely due to dehydration and hypoperfusion Avoid nephrotoxic agents (4) Coronary artery disease ICD Codes: I25.10 - Atherosclerotic heart disease of [place] coronary artery without angina pectoris Status: Acute Plan: Continue Brilinta Troponin and EKG stable Echo with 2D Doppler demonstrates normal left ventricular size. Aortic valve sclerosis is present. Trace tricuspid valve regurg. Pulmonary arterial pressure is 30.3mmHg. Ejection fraction of 60-65% (5) Anemia ICD Codes: D64.9 - Anemia, unspecified Status: Acute Plan: H&H stable Transfuse if < 7 or if symptomatic (6) Diabetes mellitus ICD Codes: E11.9 - Type 2 diabetes mellitus without complications Status: Chronic Plan: Reports uncontrolled blood sugars at home, ranging in the 500s Held home insulin Low sliding scale A1c 7.9 Levemir 10 units q12h (7) Hypertension ICD Codes: I10 - Essential (primary) hypertension Status: Chronic Plan: SHAE resolved, restart home lisinopril 20mg BID and furosemide 40mg daily Continue carvedilol 12.5mg twice daily Clonidine 0.1 mg as needed for BP>180/100 (8) Hyperlipidemia ICD Codes: E78.5 - Hyperlipidemia, unspecified Status: Chronic Plan: Continue pravastatin 40 mg p.o. daily (9) Depression ICD Codes: F32.9 - Major depressive disorder, single episode, unspecified Status: Chronic Plan: Amitriptyline 150mg PO HS (10) Nutrition, metabolism, and development symptoms ICD Codes: R63.8 - Other symptoms and signs concerning food and fluid intake Status: Acute Plan: Diet diabetic diet Fluids: PO hydration Vitals every 4, monitor I's and O's, telemetry DVT ppx: SCDs and Brilinta (Rachell Branham MD R1) Problem Qualifiers (1) Coronary artery disease: Qualified Codes: I25.119 - Atherosclerotic heart disease of [place] coronary artery with unspecified angina pectoris (2) Anemia: Qualified Codes: D64.89 - Other specified anemias (3) Diabetes mellitus: (4) Depression: Qualified Codes: F33.9 - Major depressive disorder, recurrent, unspecified Rachell Branham MD R1 December 25, 2017 08:14 Gareth Tello MD December 25, 2017 14:31
[2017-12-25 08:36] LABS: BICARBONATE 20.9 MEQ/L (21.0-32.0); CALCIUM 8.1 MG/DL (8.5-10.1); CREATININE 1.21 MG/DL (0.60-1.30)
[2017-12-25 08:42] LABS: BANDS 10 % (0-6); LYMPHOCYTES 6 % (9-44); METAMYELOCYTES 1 % (0-1); MONOCYTES 10 % (0-8); NEUTROPHIL # MANUAL DIFF 15.4 TH/MM3 (1.8-7.7); POLYS (SEG NEUTROPHILS) 73 % (16-70)
--- NOTE | 2017-12-25 08:49 | HHI.FPPN ---
Objective Vitals Vital Signs Date Time Temp Pulse Resp B/P (MAP) Pulse Ox O2 Delivery O2 Flow Rate FiO2 12/25/17 04:00 77 12/25/17 04:00 97.7 79 16 157/67 (97) 100 12/25/17 00:00 98.5 72 16 180/76 (110) 100 12/25/17 00:00 71 12/24/17 20:00 97.9 76 16 197/86 (123) 98 12/24/17 20:00 75 12/24/17 16:00 97.5 66 18 166/72 (103) 97 12/24/17 12:00 97.7 76 16 181/84 (116) 97 I/O 12/24/17 12/24/17 12/24/17 12/25/17 12/25/17 12/25/17 07:00 15:00 23:00 07:00 15:00 23:00 Intake Total 1360 ml 650 ml Output Total 600 ml Balance -600 ml 1360 ml 650 ml Intake Oral 360 ml 650 ml IV Total 1000 ml Output Urine Total 600 ml # Voids 4 3 # Bowel Movements 4 1 Result Diagram: 12/25/1761712/25/1718 Objective Remarks GENERAL: Well nourished, well developed male resting comfortably in bed. SKIN: Warm and dry. CARDIOVASCULAR: Regular rate and rhythm. RESPIRATORY: Poor air movement, coarse breath sounds GASTROINTESTINAL: Abdomen soft, nontender, mildly distended. MUSCULOSKELETAL: Extremities without clubbing, cyanosis, or edema. No obvious deformities. NEUROLOGICAL: Awake and alert. No obvious cranial nerve deficits. Motor grossly within normal limits. Normal speech. PSYCHIATRIC: Appropriate mood and affect; insight and judgment normal. A/P Assessment and Plan 67-year-old visually impaired male from [facility] with past medical history of dilated cardiomyopathy, CABG in 2016, PVD, hypertension, DM, and hyperlipidemia who presented to the ED for lower abdominal pain and diarrhea. Admitted for fluids and IV antibiotics. Discharge Planning pending repeat C. difficile and UA Anticipate discharge home today Home with home health PT Problem List: (1) Shigella gastroenteritis ICD Codes: A03.9 - Shigellosis, unspecified Status: Acute Plan: Antibiotics: s/p Zosyn 3.375 GM once and Flagyl 500mg IV once in the ED, s/p Flagyl 500mg IV Last dose this morning completed of Ciprofloxacin 500mg PO q18h, renally dosed by pharmacy, finished total 3 day course GI consulted, appreciate recommendations -plan for EGD/colonoscopy outpatient, follow-up in 1 week Tolerating diabetic diet Titrate NS IV fluids Zofran as needed for nausea Labs & Imaging: Afebrile Lactic acid wnl Blood cultures no growth in 2 days Stool studies positive for Shigella Abdominal/pelvis CT demonstrates nonspecific, nonobstructive bowel gas pattern. There is a cervical pharyngeal wall thickening involving portions of the transverse colon which could indicate colitis. Cholelithiasis with no gallbladder wall thickening or inflammatory change. (2) Elevated white blood cell count, unspecified ICD Codes: D72.829 - Elevated white blood cell count, unspecified Status: Acute Plan: WBC elevated at12.9-->21.4-->17.8 C.diff PCR negative on 12/21, UA 12/21, rare bacteria, trace blood We will order repeat C. difficile and UA to rule out possible C.diff infection and UTI C.diff and UA pending, if negative patient cleared for discharge today (3) SHAE (acute kidney injury) ICD Codes: N17.9 - Acute kidney failure, unspecified Status: Acute Plan: BUN of 35 with creatinine of 2.86 on admission Baseline Cr ~1.2 BUN/Creatine trending down SHAE most likely due to dehydration and hypoperfusion Titrate IV fluids Avoid nephrotoxic agents (4) Coronary artery disease ICD Codes: I25.10 - Atherosclerotic heart disease of [place] coronary artery without angina pectoris Status: Acute Plan: Held home Ticagrelor due to bloody diarrhea and anemia Troponin and EKG stable Echo with 2D Doppler demonstrates normal left ventricular size. Aortic valve sclerosis is present. Trace tricuspid valve regurg. Pulmonary arterial pressure is 30.3mmHg. Ejection fraction of 60-65% (5) Anemia ICD Codes: D64.9 - Anemia, unspecified Status: Acute Plan: H&H stable Transfuse if < 7 or if symptomatic (6) Diabetes mellitus ICD Codes: E11.9 - Type 2 diabetes mellitus without complications Status: Chronic Plan: Reports uncontrolled blood sugars at home, ranging in the 500s Held home insulin Low sliding scale A1c 7.9 Blood sugars over the past 24 hours, 149, 151, 244, patient received 3 units total (7) Hypertension ICD Codes: I10 - Essential (primary) hypertension Status: Chronic Plan: Held home lisinopril and furosemide due to SHAE Patient's blood pressure elevated at 184/84 this morning, administer Clonidine Continue carvedilol 12.5 mg twice daily Clonidine 0.1 mg as needed for BP>180/100 (8) Hyperlipidemia ICD Codes: E78.5 - Hyperlipidemia, unspecified Status: Chronic Plan: Continue pravastatin 40 mg p.o. daily (9) Depression ICD Codes: F32.9 - Major depressive disorder, single episode, unspecified Status: Chronic Plan: Amitriptyline 150mg PO HS (10) Nutrition, metabolism, and development symptoms ICD Codes: R63.8 - Other symptoms and signs concerning food and fluid intake Status: Acute Plan: Diet diabetic diet Fluids: Titrate IV fluids Vitals every 4, monitor I's and O's, telemetry DVT ppx: SCDs and heparin 5000units q12h Problem Qualifiers (1) Coronary artery disease: Qualified Codes: I25.119 - Atherosclerotic heart disease of [place] coronary artery with unspecified angina pectoris (2) Anemia: Qualified Codes: D64.89 - Other specified anemias (3) Diabetes mellitus: (4) Depression: Qualified Codes: F33.9 - Major depressive disorder, recurrent, unspecified Keren Cobb MD R2 December 25, 2017 8:49 am
--- NOTE | 2017-12-25 08:50 | RADRPT ---
EXAM DATE: 12/25/2017 8:47 AM EDT AGE/SEX: 67 years / Male INDICATIONS: Dyspnea CLINICAL DATA: This is the patient's subsequent encounter. Patient reports that signs and symptoms h ave been present for 4 - 6 days and indicates a pain score of 0/10. MEDICAL/SURGICAL HISTORY: Cardiovascular disease. Diabetes mellitus type II. CABG. Hysterecto my. [place] [facility] [place]. . FINDINGS: PA and lateral views of the chest demonstrate the lungs to be symmetrically aerated without evidence of mass, infiltrate or effusion. The cardiomediastinal contours are stable. There is evidence of prev ious cardiothoracic surgery.. Osseous structures are intact. CONCLUSION: No acute intrathoracic disease. Stable exam. Electronically signed by: Gareth Zelaya MD 12/25/2017 8:49 AM EDT
[2017-12-25] MEDS: PRAVASTATIN SOD 40 MG TAB PO SCH (08:55)
[2017-12-25] MEDS: INSULIN DETEMIR 100 UNITS/ML VIAL SQ SCH ×2 (08:55→21:23)
[2017-12-25] MEDS: INSULIN ASPART SUPPLEMENTAL SCALE SQ SCH ×4 (08:55→21:00)
[2017-12-25] MEDS: TICAGRELOR 90 MG TAB PO SCH ×2 (08:58→21:22)
[2017-12-25] MEDS: SODIUM CHLORIDE 0.9% FLUSH 10 ML FLUSH IV FLUSH SCH ×2 (08:58→21:23)
[2017-12-25] MEDS ORDERED: CARVEDILOL 12.5 MG TAB PO SCH (09:00)
[2017-12-25] MEDS ORDERED: POTASSIUM CHLORIDE 10 MEQ CONTROLLED RELEASE TAB PO ONE (09:45)
[2017-12-25 12:00] VITALS: BP 205/87; PULSE 74; RESP 16; TEMP 97.5; O2SAT 97
[2017-12-25] MEDS ORDERED: CIPROFLOXACIN 500 MG TAB PO ONE (12:00)
[2017-12-25] MEDS: FUROSEMIDE 40 MG TAB PO SCH (12:22)
[2017-12-25] MEDS: ACETAMINOPHEN/HYDROcodone 325 MG/7.5 MG TAB PO PRN ×2 (12:22→17:05)
[2017-12-25] MEDS: LISINOPRIL 20 MG TAB PO SCH ×2 (12:22→21:22)
--- NOTE | 2017-12-25 13:15 | HHI.GIFU ---
Subjective Remarks Abd, firm, increased girth +tenderness, decreased appetite Objective Vitals I&O Vital Signs Date Time Temp Pulse Resp B/P (MAP) Pulse Ox O2 Delivery O2 Flow Rate FiO2 12/25/17 12:00 97.5 74 16 205/87 (126) 97 12/25/17 08:00 98.1 79 17 193/84 (120) 97 12/25/17 04:00 77 12/25/17 04:00 97.7 79 16 157/67 (97) 100 12/25/17 00:00 98.5 72 16 180/76 (110) 100 12/25/17 00:00 71 12/24/17 20:00 97.9 76 16 197/86 (123) 98 12/24/17 20:00 75 12/24/17 16:00 97.5 66 18 166/72 (103) 97 I/O 12/24/17 12/24/17 12/24/17 12/25/17 12/25/17 12/25/17 07:00 15:00 23:00 07:00 15:00 23:00 Intake Total 1360 ml 650 ml Output Total 600 ml Balance -600 ml 1360 ml 650 ml Intake Oral 360 ml 650 ml IV Total 1000 ml Output Urine Total 600 ml # Voids 4 3 # Bowel Movements 4 1 Laboratory Laboratory Tests Test 12/24/17 16:49 12/24/17 19:20 12/25/17 06:18 Lactic Acid Level 1.5 Stool C. difficile Toxin (PCR) NEGATIVE Stl C. difficile Toxin Epiderm 027 PRESUMPTIVE NEGATIVE White Blood Count 18.3 Red Blood Count 3.77 Hemoglobin 10.5 Hematocrit 31.7 Mean Corpuscular Volume 83.9 Mean Corpuscular Hemoglobin 27.8 Mean Corpuscular Hemoglobin Concent 33.2 Red Cell Distribution Width 14.6 Platelet Count 205 Mean Platelet Volume 9.3 Neutrophils (%) (Auto) 77.6 Lymphocytes (%) (Auto) 12.1 Monocytes (%) (Auto) 9.4 Eosinophils (%) (Auto) 0.7 Basophils (%) (Auto) 0.2 Neutrophils # (Auto) 14.2 Lymphocytes # (Auto) 2.2 Monocytes # (Auto) 1.7 Eosinophils # (Auto) 0.1 Basophils # (Auto) 0.0 CBC Comment AUTO DIFF Differential Total Cells Counted 100 Neutrophils % (Manual) 73 Band Neutrophils % 10 Lymphocytes % 6 Monocytes % 10 Neutrophils # (Manual) 15.4 Metamyelocytes 1 Differential Comment FINAL DIFF MANUAL Platelet Estimate NORMAL Platelet Morphology Comment NORMAL Red Cell Morphology Comment NORMAL Blood Urea Nitrogen 16 Creatinine 1.21 Random Glucose 157 Calcium Level 8.1 Sodium Level 144 Potassium Level 3.2 Chloride Level 112 Carbon Dioxide Level 20.9 Anion Gap 11 Estimat Glomerular Filtration Rate 72 Date/Time Source Procedure Growth Status 12/21/17 06:40 Blood Peripheral Aerobic Blood Culture - Preliminary NO GROWTH IN 4 DAYS Resulted 12/21/17 06:40 Blood Peripheral Anaerobic Blood Culture - Preliminary NO GROWTH IN 4 DAYS Resulted 12/21/17 08:45 Stool Stool Cryptosporidium Exam - Final NEGATIVE - NO CRYPTOSPORIDIUM ANTIGEN... Complete 12/21/17 08:45 Stool Stool Stool Pus (KIAN) - Final MODERATE WBC'S Complete 12/21/17 08:45 Stool Stool Giardia Antigen (KIAN) - Final NEGATIVE - NO GIARDIA ANTIGEN DETECTE... Complete Physical Exam HEENT: normocephalic; atraumatic; no jaundice. NECK: Neck is supple, CHEST: Chest is clear no obvious rhonchi CARDIAC: Regular rate and rhythm ABDOMEN: Large, soft, tympanic, increased girth over 48 hrs. +generized ABD pain ; bowel sounds present EXTREMITIES: No lower extremity edema. SKIN: Normal; no rash; no jaundice. DIE DRAWING CHECKER: Answers simple questions. awake Assessment and Plan Plan Assessment: - Hematochezia, on Brilinta H/H currently 12.7/37.5 Pt reports diarrhea for the past four days, bloody stools for the past 2 days, multiple episodes, 7 yesterday and 3 so far today. Associated fevers, resolved yesterday. Nausea and emesis, last episode yesterday. Denies hematemesis and coffee ground emesis. Abdominal pain, lower, described as "gas pains", constant. Denies history of GIB Has never had EGD or colonoscopy. Risk factors: Brilinta, also takes ibuprofen occasionally. Recent travel- spent 7 months in [facility], returned yesterday C. Diff negative. Rotavirus negative. Denies ETOH and smoking CT abdomen and pelvis W/O IV contrast (12/21) --> Nonspecific, nonobstructive bowel gas pattern. There is circumferential wall thickening involving portion of the transverse colon which could indicate colitis. Cholelithiasis with no gallbladder wall thickening or inflammatory change. 12/22/2017 patient was initially scheduled for EGD colonoscopy today but was found to be positive for Shigella. C. difficile negative, moderate amount of WBCs in stool, V[place] negative. CT scan results noted. Hemoglobin 10.9, no obvious nausea or vomiting, decreased appetite encouraged clear liquids. Abdomen continues to be bloated and distended with generalized mid abdominal discomfort to light palpation We will consider doing EGD and colonoscopy once patient has taken p.o. Cipro and recovered from his symptoms of Shigella. Possible next week versus outpatient. 12/23/2017 patient still having bouts of abdominal pain and tenderness especially when sitting on side of the bed or any increased activity and 0.8, C. difficile negative. Patient continues on treatment for Shigella after his recent travel to [place] . (12/24/17) Pt still with mild abd pain, diarrhea, worsening wbc, repeat urine and stools for C-diff ordered, HH stable, no bleeding reported 12/25/2017, Cipro ineffective, changed to Rocephin, Increased ABD pain, Need to Rule out Abscess. Consider ID CONSULT. Need sensitivity for Shigella. Possible ileus. Plan: Diet, back to clear liquids Consider ID consult. DC Cipro Change to Rocephin [address] abd /Pelvis, Check for abscess. Stool C&S , Shigella Monitor labs Antiemetics Further recommendations based on results of above and clinical course, will consider EGD and colonoscopy after stable. Pt has been seen and examined by myself and Dr. Bryant and this note is written on his behalf Radha Vigil December 25, 2017 13:15
[2017-12-25] MEDS ORDERED: DIATRIZOATE MEGLUM/DIATRIZOATE SOD 9 ML CUP PO ONE (13:30)
[2017-12-25] MEDS: cefTRIAXone INJ 2,000 MG in SODIUM CHLORIDE 0.9% INJ 100 ML IV SCH (14:11)
--- NOTE | 2017-12-25 14:31 | RADRPT ---
EXAM DATE: 12/25/2017 2:11 PM EDT AGE/SEX: 67 years / Male INDICATIONS: Abdominal pain. Ileus. CLINICAL DATA: This is the patient's subsequent encounter. Patient reports that signs and symptoms h ave been present for 3 days and indicates a pain score of 7/10. MEDICAL/SURGICAL HISTORY: None. None. COMPARISON: . FINDINGS: A single supine frontal view the abdomen shows a gas-distended transverse colon. Gas distended loops of small bowel within the left upper quadrant. No organomegaly observed. Gas seen to the level of the sigmoid colon. No abnormal calcifications appreciated. CONCLUSION: Gaseous distention of the transverse colon and several loops of small bowel in a nonspecific patte rn. Electronically signed by: Christopher Whittaker MD 12/25/2017 2:30 PM EDT
[2017-12-25 16:00] VITALS: BP 167/77; PULSE 69; RESP 17; TEMP 97.7; O2SAT 98
[2017-12-25 20:00] VITALS: BP 159/73; PULSE 66; RESP 17; TEMP 97.9; O2SAT 96
[2017-12-25] MEDS ORDERED: IOHEXOL 350 MG/ML 10 ML VIAL (for RAD DIAG) IVCONTRAST ONE (20:13)
--- NOTE | 2017-12-25 20:33 | RADRPT ---
EXAM DATE: 12/25/2017 8:19 PM EDT AGE/SEX: 67 years / Male INDICATIONS: Lower abdomen pain for four days. CLINICAL DATA: This is the patient's initial encounter. Patient reports that signs and symptoms have been present for 4 - 6 days and indicates a pain score of 6/10. MEDICAL/SURGICAL HISTORY: Diabetes. Gastroesophageal reflux disease. CABG. ORAL CONTRAST: Prescribed oral contrast ingested. RADIATION DOSE: 15.99 CTDI (mGy) COMPARISON: No prior [facility] exams available for comparison. TECHNIQUE: Multiple contiguous axial images were obtained through the abdomen and pelvis following b olus infusion of 96 ml Omnipaque 350 (iohexol) nonionic water-soluble contrast as a single exam dos e. Prescribed oral contrast ingested. Using automated exposure control and adjustment of the mA and/ or kV according to patient size, the radiation dose was kept as low as reasonably achievable to obtai n optimal diagnostic quality images. FINDINGS: Lower Lungs: Interstitial prominence and small bilateral effusions are noted in the lung bases. Liver: The liver has a homogeneous density without space-occupying lesion. There is no dilation of th e biliary tree. The gallbladder is distended and contains multiple small stones. There is no evidence of wall thickening or surrounding fluid. Spleen: Homogeneous density without enlargement. Pancreas: Unremarkable without mass or calcification. Kidneys: Normal in size and shape. No evidence of mass or hydronephrosis. Adrenal Glands: Unremarkable. Aorta: The aorta and proximal iliac vessels are grossly unremarkable without aneurysmal dilation. Bowel/Mesentery: At least 3 colonic segments demonstrate mild wall thickening and edema. These are l ocated in the transverse segment, distal descending segment rectosigmoid colon. There is increased fl uid accumulation in the small intestinal tract without evidence of pathologic distention. There is no evidence of free fluid or free air.. Abdominal Wall: Intact. Retroperitoneum: No evidence of adenopathy in the retrocrural, para-aortic, or deep pelvic regions. Bladder: Contours are smooth. Reproductive Organs: No abnormal masses or calcifications seen. Inguinal: The inguinal region is unremarkable without evidence of adenopathy. Bony Structures: Unremarkable. CONCLUSION: 1. Segmental colitis involving the transverse colon, distal descending colon and sigmoid colon. 2. Mild ileus with scattered air-fluid levels. 3. Distended gallbladder containing stones. 4. Mild bilateral effusions with mild basilar interstitial congestion. 5. No evidence of suspicious mass or lymphadenopathy. Electronically signed by: Russ Morales MD 12/25/2017 8:31 PM EDT
[2017-12-25] MEDS: AMITRIPTYLINE HCL 75 MG TAB PO SCH (21:22)
[2017-12-25] MEDS: CARVEDILOL 12.5 MG TAB PO SCH (21:22)
[2017-12-26] VITALS (7 sets, daily range): BP systolic 159–188; BP diastolic 72–86; PULSE 62–83; RESP 17–18; TEMP 97.5–98.3; O2SAT 94–99
[2017-12-26 05:53] LABS: AUTOMATED NEUTROPHIL # 10.2 TH/MM3 (1.8-7.7); BASOPHIL % 0.2 % (0.0-2.0); EOSINOPHIL # 0.2 TH/MM3 (0-0.4); EOSINOPHIL % 1.5 % (0.0-4.0); HEMOGLOBIN 9.5 GM/DL (13.0-17.0); LYMPH % 15.5 % (9.0-44.0); LYMPHOCYTE # 2.1 TH/MM3 (1.0-4.8); MEAN CELL VOLUME 82.2 FL (80.0-100.0); MONO % 8.8 % (0.0-8.0); MONOCYTE # 1.2 TH/MM3 (0-0.9); PLATELET COUNT 204 TH/MM3 (150-450); RED BLOOD COUNT 3.41 MIL/MM3 (4.50-5.90); RED CELL DISTRIBUTION WIDTH 13.9 % (11.6-17.2); WHITE BLOOD COUNT 13.7 TH/MM3 (4.0-11.0)
[2017-12-26 06:36] LABS: BICARBONATE 22.8 MEQ/L (21.0-32.0); CALCIUM 8.1 MG/DL (8.5-10.1); CREATININE 1.05 MG/DL (0.60-1.30)
[2017-12-26] MEDS: POTASSIUM CHLORIDE 10 MEQ CONTROLLED RELEASE TAB PO ONE (07:30)
[2017-12-26] MEDS ORDERED: POTASSIUM CHLORIDE 10 MEQ CONTROLLED RELEASE TAB PO ONE (07:30)
[2017-12-26] MEDS: INSULIN ASPART SUPPLEMENTAL SCALE SQ SCH ×4 (08:00→20:31)
[2017-12-26] MEDS ORDERED: CIPROFLOXACIN 500 MG TAB PO SCH (08:00)
[2017-12-26] MEDS: SODIUM CHLORIDE 0.9% FLUSH 10 ML FLUSH IV FLUSH SCH ×2 (08:17→21:00)
[2017-12-26] MEDS: CARVEDILOL 12.5 MG TAB PO SCH ×2 (08:17→20:26)
[2017-12-26] MEDS: TICAGRELOR 90 MG TAB PO SCH ×2 (08:17→20:26)
[2017-12-26] MEDS: LISINOPRIL 20 MG TAB PO SCH ×2 (08:18→20:26)
[2017-12-26] MEDS: FUROSEMIDE 40 MG TAB PO SCH (08:18)
[2017-12-26] MEDS: PRAVASTATIN SOD 40 MG TAB PO SCH (08:18)
[2017-12-26] MEDS: ACETAMINOPHEN/HYDROcodone 325 MG/7.5 MG TAB PO PRN (08:20)
[2017-12-26] MEDS: INSULIN DETEMIR 100 UNITS/ML VIAL SQ SCH ×2 (09:00→20:26)
[2017-12-26] MEDS ORDERED: ASPIRIN 325 MG TAB PO ONE (11:00)
[2017-12-26 11:26] LABS: TROPONIN I 0.02 NG/ML (0.02-0.05)
--- NOTE | 2017-12-26 11:42 | HHI.FPPN ---
Subjective Remarks No acute issues overnight. Vitals are stable, patient remains afebrile. Patient is feeling better overall today. He is having less frequent bowel movements. He notes chest pressure this morning but denies any shortness of breath, fever, chills, nausea, vomiting. He also continues to have his chronic arm pain and is feeling weak this morning. (Irene Fuller MD R3) Objective Vitals Vital Signs Date Time Temp Pulse Resp B/P (MAP) Pulse Ox O2 Delivery O2 Flow Rate FiO2 12/26/17 08:00 98.3 83 18 188/86 (120) 98 12/26/17 04:00 97.5 62 17 159/77 (104) 94 12/26/17 04:00 71 12/26/17 00:00 70 12/25/17 20:00 97.9 66 17 159/73 (101) 96 12/25/17 16:00 97.7 69 17 167/77 (107) 98 12/25/17 12:00 97.5 74 16 205/87 (126) 97 I/O 12/25/17 12/25/17 12/25/17 12/26/17 12/26/17 12/26/17 07:00 15:00 23:00 07:00 15:00 23:00 Intake Total 650 ml 1556 ml 240 ml Balance 650 ml 1556 ml 240 ml Intake Oral 650 ml 1000 ml 240 ml IV Total 556 ml # Voids 3 2 3 # Bowel Movements 1 2 0 (Irene Fuller MD R3) Result Diagram: 12/26/17 0536 12/26/17 0943 Imaging Last Impressions Chest X-Ray 12/25/17 0000 Signed Impressions: CONCLUSION: No acute intrathoracic disease. Stable exam. Abdomen/Pelvis CT 12/25/17 0000 Signed Impressions: CONCLUSION: 1. Segmental colitis involving the transverse colon, distal descending colon a nd sigmoid colon. 2. Mild ileus with scattered air-fluid levels. 3. Distended gallbladder containing stones. 4. Mild bilateral effusions with mild basilar interstitial congestion. 5. No evidence of suspicious mass or lymphadenopathy. Abdomen X-Ray 12/25/17 0000 Signed Impressions: CONCLUSION: Gaseous distention of the transverse colon and several loops of small bowel in a nonspecific pattern. Objective Remarks GENERAL: Well nourished, well developed male resting comfortably in bed. SKIN: Warm and dry. CARDIOVASCULAR: Regular rate and rhythm. No chest wall tenderness on palpation. RESPIRATORY: Clear to auscultation bilaterally. GASTROINTESTINAL: Abdomen, firm, mildy tender throughout, moderately distended. MUSCULOSKELETAL: Extremities without clubbing, cyanosis, or edema. No obvious deformities. NEUROLOGICAL: Awake and alert. No obvious cranial nerve deficits. Motor grossly within normal limits. Normal speech. PSYCHIATRIC: Appropriate mood and affect; insight and judgment normal. (Irene Fuller MD R3) A/P Assessment and Plan 67-year-old visually impaired male from [facility] with past medical history of dilated cardiomyopathy, CABG in 2016, PVD, hypertension, DM, and hyperlipidemia who presented to the ED for lower abdominal pain and diarrhea. Admitted for fluids and IV antibiotics. Discharge Planning Pending clinical improvement, unclear timetable at this time. Home with home health PT. (Irene Fuller MD R3) Attending Attestation Pt. examined independently and case discussed with resident physicians I have read the above note and agree with the assessment/plan as discussed with me I was involved in all medical decision making for this patient. Hypokalemia: pt. did not take his calcium replenishment PO this morning - will give potassium as ordered and repeat potassium level Chest pressure: - EKG and troponin ordered (troponin negative) Gareth Tello MD (Gareth Tello MD) Problem List: (1) Chest pain ICD Codes: R07.9 - Chest pain, unspecified Status: Acute Plan: Patient has noted similar symptoms during hospitalization and work up as been negative. May be chronic, however given acute complaint this morning, will give a dose of aspirin 325mg PO once and obtain stat EKG and cardiac enzymes. (2) Shigella gastroenteritis ICD Codes: A03.9 - Shigellosis, unspecified Status: Acute Plan: Antibiotics: s/p Zosyn 3.375 GM once and Flagyl 500mg IV once in the ED, s/p Flagyl 500mg IV s/p ciprofloxacin 500mg PO q18h renally dosed by pharmacy, (12/22-12/25) Continue Rocephin 2g IV Q24H (started 12/25) GI consulted, appreciate recommendations -plan for EGD/colonoscopy outpatient, follow-up in 1 week Tolerating diabetic diet Zofran as needed for nausea Labs & Imaging: Afebrile Lactic acid wnl Blood cultures no growth Stool studies positive for Shigella Abdominal/pelvis CT demonstrates nonspecific, nonobstructive bowel gas pattern. There is a cervical pharyngeal wall thickening involving portions of the transverse colon which could indicate colitis. Cholelithiasis with no gallbladder wall thickening or inflammatory change. (3) Coronary artery disease ICD Codes: I25.10 - Atherosclerotic heart disease of [place] coronary artery without angina pectoris Status: Chronic Plan: Continue Brilinta Echo with 2D Doppler demonstrates normal left ventricular size. Aortic valve sclerosis is present. Trace tricuspid valve regurg. Pulmonary arterial pressure is 30.3mmHg. Ejection fraction of 60-65% (4) Anemia ICD Codes: D64.9 - Anemia, unspecified Status: Chronic Plan: H&H stable Transfuse if < 7 or if symptomatic (5) Diabetes mellitus ICD Codes: E11.9 - Type 2 diabetes mellitus without complications Status: Chronic Plan: Reports uncontrolled blood sugars at home, ranging in the 500s Held home insulin Low sliding scale A1c 7.9 Levemir 10 units q12h (6) Hypertension ICD Codes: I10 - Essential (primary) hypertension Status: Chronic Plan: lisinopril 20mg BID and furosemide 40mg daily Continue carvedilol 12.5mg twice daily Clonidine 0.1 mg as needed for BP>180/100 (7) Hyperlipidemia ICD Codes: E78.5 - Hyperlipidemia, unspecified Status: Chronic Plan: Continue pravastatin 40 mg p.o. daily (8) Depression ICD Codes: F32.9 - Major depressive disorder, single episode, unspecified Status: Chronic Plan: Amitriptyline 150mg PO HS (9) Nutrition, metabolism, and development symptoms ICD Codes: R63.8 - Other symptoms and signs concerning food and fluid intake Status: Acute Plan: Diet diabetic diet Fluids: PO hydration Vitals every 4, monitor I's and O's, telemetry DVT ppx: SCDs and Brilinta (Irene Fuller MD R3) Problem Qualifiers (1) Coronary artery disease: Qualified Codes: I25.119 - Atherosclerotic heart disease of [place] coronary artery with unspecified angina pectoris (2) Anemia: Qualified Codes: D64.89 - Other specified anemias (3) Diabetes mellitus: (4) Hypertension: Qualified Codes: I10 - Essential (primary) hypertension (5) Hyperlipidemia: Qualified Codes: E78.2 - Mixed hyperlipidemia (6) Depression: Qualified Codes: F33.9 - Major depressive disorder, recurrent, unspecified Irene Fuller MD R3 December 26, 2017 11:42 Gareth Tello MD December 26, 2017 12:53
[2017-12-26] MEDS: metroNIDAZOLE 500 MG TAB PO SCH ×2 (11:43→23:17)
--- NOTE | 2017-12-26 12:00 | EKG ---
Date Performed: 12/26/2017 Time Performed: 11:17:43 PTAGE: 67 years EKG: Sinus rhythm POSSIBLE LEFT ATRIAL ENLARGEMENT LEFT AXIS DEVIATION POSSIBLE LEFT VENTRICULAR HYPERTROPHY POSSIBLE ANTEROSEPTAL MYOCARDIAL INFARCTION , OF INDETERMINATE AGE ABNORMAL ECG PREVIOUS TRACING : 12/21/2017 10.30 Compared to previous tracing, high lateral T wave inversion is now less pronounced. DOCTOR: Alexis Dumas Interpretating Date/Time 12/26/2017 11:58:44
[2017-12-26] MEDS: cefTRIAXone INJ 2,000 MG in SODIUM CHLORIDE 0.9% INJ 100 ML IV SCH (13:29)
--- NOTE | 2017-12-26 15:42 | HHI.GIFU ---
Subjective Remarks Pt resting in bed States he does seem to be improving today Denies abdominal pain but lower abdomen is tender to palpation Reports some nausea, denies emesis (+) BMs, no continued blood in stool (Jaylene Rowe) Objective Vitals I&O Vital Signs Date Time Temp Pulse Resp B/P (MAP) Pulse Ox O2 Delivery O2 Flow Rate FiO2 12/26/17 12:00 97.6 80 17 181/83 (115) 97 12/26/17 08:00 98.3 83 18 188/86 (120) 98 12/26/17 04:00 97.5 62 17 159/77 (104) 94 12/26/17 04:00 71 12/26/17 00:00 70 12/25/17 20:00 97.9 66 17 159/73 (101) 96 12/25/17 16:00 97.7 69 17 167/77 (107) 98 I/O 12/25/17 12/25/17 12/25/17 12/26/17 12/26/17 12/26/17 06:59 14:59 22:59 06:59 14:59 22:59 Intake Total 650 ml 1556 ml 240 ml Balance 650 ml 1556 ml 240 ml Intake Oral 650 ml 1000 ml 240 ml IV Total 556 ml # Voids 3 2 3 # Bowel Movements 1 2 0 Laboratory Laboratory Tests Test 12/26/17 05:17 12/26/17 05:36 12/26/17 09:43 Blood Urea Nitrogen 11 Creatinine 1.05 Random Glucose 79 Calcium Level 8.1 Sodium Level 143 Potassium Level 2.8 2.9 Chloride Level 110 Carbon Dioxide Level 22.8 Anion Gap 10 Estimat Glomerular Filtration Rate 85 Total Creatine Kinase 54 Troponin I 0.02 White Blood Count 13.7 Red Blood Count 3.41 Hemoglobin 9.5 Hematocrit 28.0 Mean Corpuscular Volume 82.2 Mean Corpuscular Hemoglobin 28.0 Mean Corpuscular Hemoglobin Concent 34.0 Red Cell Distribution Width 13.9 Platelet Count 204 Mean Platelet Volume 9.0 Neutrophils (%) (Auto) 74.0 Lymphocytes (%) (Auto) 15.5 Monocytes (%) (Auto) 8.8 Eosinophils (%) (Auto) 1.5 Basophils (%) (Auto) 0.2 Neutrophils # (Auto) 10.2 Lymphocytes # (Auto) 2.1 Monocytes # (Auto) 1.2 Eosinophils # (Auto) 0.2 Basophils # (Auto) 0.0 CBC Comment DIFF FINAL Differential Comment Date/Time Source Procedure Growth Status 12/26/17 05:32 Blood Peripheral Aerobic Blood Culture Pending Received 12/26/17 05:32 Blood Peripheral Anaerobic Blood Culture Pending Received 12/21/17 08:45 Stool Stool Cryptosporidium Exam - Final NEGATIVE - NO CRYPTOSPORIDIUM ANTIGEN... Complete 12/21/17 08:45 Stool Stool Stool Pus (KIAN) - Final MODERATE WBC'S Complete 12/21/17 08:45 Stool Stool Giardia Antigen (KIAN) - Final NEGATIVE - NO GIARDIA ANTIGEN DETECTE... Complete Imaging Last Impressions Chest X-Ray 12/25/17 0000 Signed Impressions: CONCLUSION: No acute intrathoracic disease. Stable exam. Abdomen/Pelvis CT 12/25/17 0000 Signed Impressions: CONCLUSION: 1. Segmental colitis involving the transverse colon, distal descending colon a nd sigmoid colon. 2. Mild ileus with scattered air-fluid levels. 3. Distended gallbladder containing stones. 4. Mild bilateral effusions with mild basilar interstitial congestion. 5. No evidence of suspicious mass or lymphadenopathy. Abdomen X-Ray 12/25/17 0000 Signed Impressions: CONCLUSION: Gaseous distention of the transverse colon and several loops of small bowel in a nonspecific pattern. Physical Exam HEENT: Normocephalic; atraumatic CHEST: Even/unlabored CARDIAC: RRR ABDOMEN: Distended, semi-firm, lower abdominal tenderness, bowel sounds active EXTREMITIES: No lower extremity edema. SKIN: Normal; no rash; no jaundice. [employer]: Alert and oriented (Jaylene Rowe) Assessment and Plan Plan Assessment: - Hematochezia, on Brilinta H/H currently 12.7/37.5 Pt reports diarrhea for the past four days, bloody stools for the past 2 days, multiple episodes, 7 yesterday and 3 so far today. Associated fevers, resolved yesterday. Nausea and emesis, last episode yesterday. Denies hematemesis and coffee ground emesis. Abdominal pain, lower, described as "gas pains", constant. Denies history of GIB Has never had EGD or colonoscopy. Risk factors: Brilinta, also takes ibuprofen occasionally. Recent travel- spent 7 months in [place], returned yesterday C. Diff negative. Rotavirus negative. Denies ETOH and smoking CT abdomen and pelvis W/O IV contrast (12/21) --> Nonspecific, nonobstructive bowel gas pattern. There is circumferential wall thickening involving portion of the transverse colon which could indicate colitis. Cholelithiasis with no gallbladder wall thickening or inflammatory change. Stools positive for Shigella, initially planned EGD and colonoscopy were cancelled and treatment plan focused on treating the Shigella, pt initially on Cipro with no improvement, currently on Flagyl and Rocephin. C Diff and ova and parasites stool negative. (12/26) Improvement in leukocytosis today, pt reports improvement in symptoms Repeat CT abdomen and pelvis W IV contrast (12/25) --> Segmental colitis involving the transverse colon, distal descending colon and sigmoid colon. Mild ileus with scattered air-fluid levels. Distended gallbladder containing stones. KUB (12/25) Gaseous distention of the transverse colon and several loops of small bowel in a nonspecific pattern Plan: Rocephin Flagyl Simethicone Monitor labs Supportive care Further recommendations based on results of above and clinical course Pt has been seen and examined by myself and Dr. Hawkins and this note is written on his behalf (Jaylene Rowe) Physician Comments Seen and examined with LUBE TECHNICIAN, doing better. Treatment for infectious colitis. Colonoscopy as outpt. (Andreina Hawkins MD) Jaylene Rowe December 26, 2017 15:42 Andreina Hawkins MD December 26, 2017 16:47
[2017-12-26] MEDS: cloNIDine HCL 0.1 MG TAB PO PRN (16:51)
[2017-12-26] MEDS: ACETAMINOPHEN/HYDROcodone 325 MG/5 MG TAB PO PRN ×2 (18:46→23:17)
[2017-12-26] MEDS: AMITRIPTYLINE HCL 75 MG TAB PO SCH (20:25)
[2017-12-26] MEDS ORDERED: CARVEDILOL 12.5 MG TAB PO ONE (20:30)
[2017-12-27] VITALS (7 sets, daily range): BP systolic 136–192; BP diastolic 63–87; PULSE 63–83; RESP 17–19; TEMP 97.1–98.1; O2SAT 95–97
[2017-12-27 04:36] LABS: HEMATOCRIT 25.8 % (39.0-51.0); MEAN CELL VOLUME 82.2 FL (80.0-100.0); MEAN CORPUSCULAR HEMOGLOBIN 28.6 PG (27.0-34.0); MEAN CORPUSCULAR HGB CONC 34.7 % (32.0-36.0); MEAN PLATELET VOLUME 8.9 FL (7.0-11.0); PLATELET COUNT 197 TH/MM3 (150-450); RED BLOOD COUNT 3.14 MIL/MM3 (4.50-5.90); RED CELL DISTRIBUTION WIDTH 14.2 % (11.6-17.2); WHITE BLOOD COUNT 9.4 TH/MM3 (4.0-11.0)
[2017-12-27 05:02] LABS: BICARBONATE 24.5 MEQ/L (21.0-32.0); CALCIUM 7.6 MG/DL (8.5-10.1); CREATININE 1.3 MG/DL (0.60-1.30)
[2017-12-27] MEDS ORDERED: POTASSIUM CHLORIDE 10 MEQ CONTROLLED RELEASE TAB PO ONE ×2 (05:45)
[2017-12-27] MEDS: metroNIDAZOLE 500 MG TAB PO SCH ×3 (06:21→22:20)
[2017-12-27] MEDS: INSULIN ASPART SUPPLEMENTAL SCALE SQ SCH ×4 (08:00→21:00)
[2017-12-27] MEDS: CARVEDILOL 12.5 MG TAB PO SCH ×2 (08:03→22:20)
[2017-12-27] MEDS: LISINOPRIL 20 MG TAB PO SCH ×2 (08:04→22:20)
[2017-12-27] MEDS: PRAVASTATIN SOD 40 MG TAB PO SCH (08:04)
[2017-12-27] MEDS: TICAGRELOR 90 MG TAB PO SCH ×2 (08:05→22:21)
[2017-12-27] MEDS: FUROSEMIDE 40 MG TAB PO SCH (08:05)
[2017-12-27] MEDS: INSULIN DETEMIR 100 UNITS/ML VIAL SQ SCH ×2 (08:05→22:22)
[2017-12-27] MEDS: SODIUM CHLORIDE 0.9% FLUSH 10 ML FLUSH IV FLUSH SCH ×2 (08:05→22:21)
--- NOTE | 2017-12-27 08:47 | HHI.FPPN ---
Subjective Remarks No acute events overnight. Patient lying comfortably in bed. Son asleep in room. Patient complains of chronic bilateral upper extremity pain. He states the pain is relieved by pain medication. He states that he has no abdominal pain, but still experiences bloating. 2 bowel movements recorded yesterday. Vital signs stable. She states that he is eating a little better. Patient denies chest pain, shortness of breath, swelling, and nausea and vomiting. (Rachell Branham MD R1) Objective Vitals Vital Signs Date Time Temp Pulse Resp B/P (MAP) Pulse Ox O2 Delivery O2 Flow Rate FiO2 12/27/17 04:00 97.6 68 18 136/63 (87) 97 12/27/17 03:50 63 12/27/17 03:50 73 12/27/17 00:17 17 12/27/17 00:00 97.2 78 17 143/66 (91) 97 12/26/17 23:11 73 12/26/17 20:00 97.7 73 17 166/72 (103) 99 12/26/17 16:00 97.5 73 17 183/84 (117) 99 12/26/17 12:00 97.6 80 17 181/83 (115) 97 I/O 12/26/17 12/26/17 12/26/17 12/27/17 12/27/17 12/27/17 07:00 15:00 23:00 07:00 15:00 23:00 Intake Total 240 ml 500 ml 240 ml Balance 240 ml 500 ml 240 ml Intake Oral 240 ml 500 ml 240 ml IV Total 0 ml # Voids 3 4 2 # Bowel Movements 0 2 (Rachell Branham MD R1) Result Diagram: 12/27/17 0419 12/27/17 0419 Objective Remarks GENERAL: Well nourished, well developed male resting comfortably in bed. SKIN: Warm and dry. CARDIOVASCULAR: 3/4 systolic murmur throughout, heard most prominent in the upper left sternal border RESPIRATORY: Decreased breath sounds, crackles heard in the left lower lung base GASTROINTESTINAL: Abdomen, firm, moderately distended, decreased bowel sounds MUSCULOSKELETAL: Extremities without clubbing, cyanosis, or edema. No obvious deformities. NEUROLOGICAL: Awake and alert. No obvious cranial nerve deficits. Motor grossly within normal limits. Normal speech. PSYCHIATRIC: Appropriate mood and affect; insight and judgment normal. (Rachell Branham MD R1) A/P Assessment and Plan 67-year-old visually impaired male from [facility] with past medical history of dilated cardiomyopathy, CABG in 2016, PVD, hypertension, DM, and hyperlipidemia who presented to the ED for lower abdominal pain and diarrhea. Admitted for fluids and IV antibiotics. Discharge Planning Pending clinical improvement, unclear timetable at this time. Home with home health PT. (Rachell Branham MD R1) Attending Attestation Patient examined independently and case discussed with resident physicians I have read the above note and agree with the assessment/plan as discussed with me I was involved in all medical decision making for this patient Colitis with abdominal distention and possible ileus -GI planning to do colonoscopy tomorrow -Continue antibiotics with Rocephin and Flagyl -Clear liquid diet today with bowel prep this evening Leukocytosis has resolved and patient pain has mildly improved but he is poorly tolerating liquids and foods Gareth Tello MD (Gareth Tello MD) Problem List: (1) Shigella gastroenteritis ICD Codes: A03.9 - Shigellosis, unspecified Status: Acute Plan: Antibiotics: s/p Zosyn 3.375 GM once and Flagyl 500mg IV once in the ED, s/p Flagyl 500mg IV s/p ciprofloxacin 500mg PO q18h renally dosed by pharmacy, (12/22-12/25) Continue Rocephin 2g IV Q24H (started 12/25) Continue Flagyl 500 mg p.o. q. 8 (started 12/26-) GI consulted, appreciate recommendations -plan for EGD/colonoscopy outpatient, follow-up in 1 week Repeat blood cultures 12/26 pending Tolerating diabetic diet Zofran as needed for nausea Labs & Imaging: Afebrile Lactic acid wnl Blood cultures 12/21 no growth Stool studies positive for Shigella Abdominal/pelvis CT demonstrates nonspecific, nonobstructive bowel gas pattern. There is a cervical pharyngeal wall thickening involving portions of the transverse colon which could indicate colitis. Cholelithiasis with no gallbladder wall thickening or inflammatory change. Repeat abdominal/pelvis CT 12/25-demonstrate segmental colitis involving the transverse colon, distal descending colon and sigmoid colon. Mild ileus with scattered air-fluid levels. Distended gallbladder containing stones. Mild bilateral effusions with mild basilar interstitial congestion. No evidence of suspicious mass or lymphadenopathy. (2) Coronary artery disease ICD Codes: I25.10 - Atherosclerotic heart disease of [place] coronary artery without angina pectoris Status: Chronic Plan: Continue Brilinta Echo with 2D Doppler demonstrates normal left ventricular size. Aortic valve sclerosis is present. Trace tricuspid valve regurg. Pulmonary arterial pressure is 30.3mmHg. Ejection fraction of 60-65% (3) Anemia ICD Codes: D64.9 - Anemia, unspecified Status: Chronic Plan: H&H stable Transfuse if < 7 or if symptomatic (4) Chest pain ICD Codes: R07.9 - Chest pain, unspecified Status: Resolved Plan: Patient has noted similar symptoms during hospitalization and work up as been negative. Patient complained of acute chest pain . Aspirin 325mg PO once administered. Troponin 0.02. EKG demonstrated sinus rhythm. Compared to previous tracing on 12/21, high lateral T-wave inversion is now less pronounced. Patient denies chest pain this morning. (5) Diabetes mellitus ICD Codes: E11.9 - Type 2 diabetes mellitus without complications Status: Chronic Plan: Reports uncontrolled blood sugars at home, ranging in the 500s Held home insulin Low sliding scale A1c 7.9 Continue Levemir 10 units q12h Blood sugars over the past 24 hours, 73, 111, 162, 211, patient has required 4 units of insulin over the past 24 hours. (6) Hypertension ICD Codes: I10 - Essential (primary) hypertension Status: Chronic Plan: Increase lisinopril 40mg BID from 20 mg Continue furosemide 40mg daily Continue carvedilol 12.5mg twice daily Clonidine 0.1 mg as needed for BP>180/100 (7) Hyperlipidemia ICD Codes: E78.5 - Hyperlipidemia, unspecified Status: Chronic Plan: Continue pravastatin 40 mg p.o. daily (8) Depression ICD Codes: F32.9 - Major depressive disorder, single episode, unspecified Status: Chronic Plan: Amitriptyline 150mg PO HS (9) Nutrition, metabolism, and development symptoms ICD Codes: R63.8 - Other symptoms and signs concerning food and fluid intake Status: Acute Plan: Diet diabetic diet Fluids: PO hydration Vitals every 4, monitor I's and O's, telemetry DVT ppx: SCDs and Brilinta (Rachell Branham MD R1) Problem Qualifiers (1) Coronary artery disease: Qualified Codes: I25.119 - Atherosclerotic heart disease of [place] coronary artery with unspecified angina pectoris (2) Anemia: Qualified Codes: D64.89 - Other specified anemias (3) Diabetes mellitus: (4) Hypertension: Qualified Codes: I10 - Essential (primary) hypertension (5) Hyperlipidemia: Qualified Codes: E78.2 - Mixed hyperlipidemia (6) Depression: Qualified Codes: F33.9 - Major depressive disorder, recurrent, unspecified Rachell Branham MD R1 December 27, 2017 08:47 Gareth Tello MD December 27, 2017 12:59
--- NOTE | 2017-12-27 08:52 | HHI.GIFU ---
Subjective Remarks Pt is reporting some improvement in symptoms but still does not feel well enough to advance his diet from clear liquids Still having diarrhea, but seems to be slowing down some Complaining of abdominal distention Some nausea, no continued emesis Continued abdominal pain but overall improving (Jaylene Rowe) Objective Vitals I&O Vital Signs Date Time Temp Pulse Resp B/P (MAP) Pulse Ox O2 Delivery O2 Flow Rate FiO2 12/27/17 04:00 97.6 68 18 136/63 (87) 97 12/27/17 03:50 63 12/27/17 03:50 73 12/27/17 00:17 17 12/27/17 00:00 97.2 78 17 143/66 (91) 97 12/26/17 23:11 73 12/26/17 20:00 97.7 73 17 166/72 (103) 99 12/26/17 16:00 97.5 73 17 183/84 (117) 99 12/26/17 12:00 97.6 80 17 181/83 (115) 97 I/O 12/26/17 12/26/17 12/26/17 12/27/17 12/27/17 12/27/17 07:00 15:00 23:00 07:00 15:00 23:00 Intake Total 240 ml 500 ml 240 ml Balance 240 ml 500 ml 240 ml Intake Oral 240 ml 500 ml 240 ml IV Total 0 ml # Voids 3 4 2 # Bowel Movements 0 2 Laboratory Laboratory Tests Test 12/26/17 09:43 12/26/17 21:35 12/27/17 04:19 Potassium Level 2.9 3.3 3.0 White Blood Count 9.4 Red Blood Count 3.14 Hemoglobin 9.0 Hematocrit 25.8 Mean Corpuscular Volume 82.2 Mean Corpuscular Hemoglobin 28.6 Mean Corpuscular Hemoglobin Concent 34.7 Red Cell Distribution Width 14.2 Platelet Count 197 Mean Platelet Volume 8.9 Blood Urea Nitrogen 10 Creatinine 1.30 Random Glucose 113 Calcium Level 7.6 Sodium Level 143 Chloride Level 109 Carbon Dioxide Level 24.5 Anion Gap 10 Estimat Glomerular Filtration Rate 67 Date/Time Source Procedure Growth Status 12/26/17 05:32 Blood Peripheral Aerobic Blood Culture Pending Received 12/26/17 05:32 Blood Peripheral Anaerobic Blood Culture Pending Received 12/21/17 08:45 Stool Stool Cryptosporidium Exam - Final NEGATIVE - NO CRYPTOSPORIDIUM ANTIGEN... Complete 12/21/17 08:45 Stool Stool Stool Pus (KIAN) - Final MODERATE WBC'S Complete 12/21/17 08:45 Stool Stool Giardia Antigen (KIAN) - Final NEGATIVE - NO GIARDIA ANTIGEN DETECTE... Complete Imaging Last Impressions Chest X-Ray 12/25/17 0000 Signed Impressions: CONCLUSION: No acute intrathoracic disease. Stable exam. Abdomen/Pelvis CT 12/25/17 0000 Signed Impressions: CONCLUSION: 1. Segmental colitis involving the transverse colon, distal descending colon a nd sigmoid colon. 2. Mild ileus with scattered air-fluid levels. 3. Distended gallbladder containing stones. 4. Mild bilateral effusions with mild basilar interstitial congestion. 5. No evidence of suspicious mass or lymphadenopathy. Abdomen X-Ray 12/25/17 0000 Signed Impressions: CONCLUSION: Gaseous distention of the transverse colon and several loops of small bowel in a nonspecific pattern. Physical Exam HEENT: Normocephalic; atraumatic CHEST: Even/unlabored CARDIAC: RRR ABDOMEN: Distended, semi-firm, lower abdominal tenderness, bowel sounds active EXTREMITIES: No lower extremity edema. SKIN: Normal; no rash; no jaundice. [employer]ARN [employer]KEINS EXAMINER: Alert and oriented (Jaylene Rowe) Assessment and Plan Plan Assessment: - Hematochezia, on Brilinta H/H currently 12.7/37.5 Pt reports diarrhea for the past four days, bloody stools for the past 2 days, multiple episodes, 7 yesterday and 3 so far today. Associated fevers, resolved yesterday. Nausea and emesis, last episode yesterday. Denies hematemesis and coffee ground emesis. Abdominal pain, lower, described as "gas pains", constant. Denies history of GIB Has never had EGD or colonoscopy. Risk factors: Brilinta, also takes ibuprofen occasionally. Recent travel- spent 7 months in [place], returned yesterday C. Diff negative. Rotavirus negative. Denies ETOH and smoking CT abdomen and pelvis W/O IV contrast (12/21) --> Nonspecific, nonobstructive bowel gas pattern. There is circumferential wall thickening involving portion of the transverse colon which could indicate colitis. Cholelithiasis with no gallbladder wall thickening or inflammatory change. Stools positive for Shigella, initially planned EGD and colonoscopy were cancelled and treatment plan focused on treating the Shigella, pt initially on Cipro with no improvement, currently on Flagyl and Rocephin. C Diff and ova and parasites stool negative. (12/26) Improvement in leukocytosis today, pt reports improvement in symptoms Repeat CT abdomen and pelvis W IV contrast (12/25) --> Segmental colitis involving the transverse colon, distal descending colon and sigmoid colon. Mild ileus with scattered air-fluid levels. Distended gallbladder containing stones. KUB (12/25) Gaseous distention of the transverse colon and several loops of small bowel in a nonspecific pattern (12/27) Pt reports some continued improvement in symptoms but still does not feel ready to have his diet advanced past clear liquids. Diarrhea seems to be slowing down, some nausea but not emesis. Some lower abdominal cramping. Also complaining of feeling his abdomen is distended, KUB noted above, Simethicone ordered as needed but according to MAR has not been administered. Plan: Colonoscopy tomorrow Obtain consent Clear liquids today Golytely prep NPO after MN Rocephin Flagyl Simethicone Repeat KUB in AM Monitor labs Supportive care Further recommendations based on results of above and clinical course Pt has been seen and examined by myself and Dr. Hawkins and this note is written on his behalf (Jaylene Rowe) Physician Comments Seen and examined with ARIELA, slow improvement in symptoms. Colonoscopy planned for tomorrow. (Andreina Hawkins MD) Jaylene Rowe December 27, 2017 08:52 Andreina Hawkins MD December 27, 2017 13:06
[2017-12-27] MEDS: SIMETHICONE 125 MG CHEWABLE TAB PO SCH (09:00)
[2017-12-27] MEDS: ACETAMINOPHEN/HYDROcodone 325 MG/5 MG TAB PO PRN (09:09)
[2017-12-27] MEDS: cefTRIAXone INJ 2,000 MG in SODIUM CHLORIDE 0.9% INJ 100 ML IV SCH (13:02)
[2017-12-27] MEDS: ACETAMINOPHEN/HYDROcodone 325 MG/7.5 MG TAB PO PRN ×2 (13:02→22:27)
[2017-12-27] MEDS ORDERED: PEG (High)/E-LYTE SOLN 4000 ML BTL PO ONE (16:00)
[2017-12-27] MEDS ORDERED: amLODIPine BESYLATE 5 MG TAB PO ONE (20:00)
[2017-12-27] MEDS: AMITRIPTYLINE HCL 75 MG TAB PO SCH (22:20)
[2017-12-28] VITALS: BP 172/87; PULSE 81; RESP 19; TEMP 97; O2SAT 95
[2017-12-28] MEDS: metroNIDAZOLE 500 MG TAB PO SCH ×3 (04:50→21:08)
[2017-12-28 05:34] LABS: HEMATOCRIT 29.8 % (39.0-51.0); HEMOGLOBIN 10.1 GM/DL (13.0-17.0); MEAN CELL VOLUME 83.4 FL (80.0-100.0); MEAN CORPUSCULAR HEMOGLOBIN 28.2 PG (27.0-34.0); MEAN CORPUSCULAR HGB CONC 33.9 % (32.0-36.0); MEAN PLATELET VOLUME 8.9 FL (7.0-11.0); PLATELET COUNT 226 TH/MM3 (150-450); RED BLOOD COUNT 3.58 MIL/MM3 (4.50-5.90); RED CELL DISTRIBUTION WIDTH 14.1 % (11.6-17.2); WHITE BLOOD COUNT 9.1 TH/MM3 (4.0-11.0)
--- NOTE | 2017-12-28 05:59 | RADRPT ---
EXAM DATE: 12/28/2017 5:52 AM EDT AGE/SEX: 67 years / Male INDICATIONS: Distention. CLINICAL DATA: This is the patient's subsequent encounter. Patient reports that signs and symptoms h ave been present for 4 - 6 days and indicates a pain score of Nonresponsive. MEDICAL/SURGICAL HISTORY: None. None. COMPARISON: No prior exams available for comparison. FINDINGS: The bowel gas is nonspecific. There are no signs of obstruction or free air for technique. No definite calcified stones are identified for technique. CONCLUSION: Unremarkable study. Electronically signed by: James Huynh MD 12/28/2017 5:58 AM EDT
[2017-12-28 06:04] LABS: BICARBONATE 26.2 MEQ/L (21.0-32.0); CALCIUM 8.2 MG/DL (8.5-10.1); CREATININE 1.26 MG/DL (0.60-1.30)
[2017-12-28] MEDS ORDERED: POTASSIUM CHLORIDE 10 MEQ CONTROLLED RELEASE TAB PO ONE (06:30)
[2017-12-28] MEDS ORDERED: SODIUM CHLORID 0.9% 500 ML IV PRN (06:45)
[2017-12-28] MEDS ORDERED: LACTATED RINGER'S 1000 ML IV PRN (06:45)
[2017-12-28 08:00] VITALS: BP 171/79; PULSE 81; RESP 16; TEMP 98; O2SAT 96
[2017-12-28] MEDS: LISINOPRIL 20 MG TAB PO SCH ×3 (08:00→21:06)
[2017-12-28] MEDS: INSULIN ASPART SUPPLEMENTAL SCALE SQ SCH ×4 (08:00→21:07)
[2017-12-28] MEDS: SODIUM CHLORIDE 0.9% FLUSH 10 ML FLUSH IV FLUSH SCH ×2 (09:00→21:07)
[2017-12-28] MEDS: INSULIN DETEMIR 100 UNITS/ML VIAL SQ SCH ×2 (09:00→21:07)
--- NOTE | 2017-12-28 09:59 | HHI.FPPN ---
Subjective Remarks Patient is looking much better this morning, he was seen at the preop area as he was being prepared for colonoscopy. He is feeling better in general, he still endorses abdominal pain but is able to tolerate soup. He is no longer having bloody diarrhea but has had multiple bowel movements due to prep for colonoscopy. He denies fever or chills. (Keren Cobb MD R2) Objective Vitals Vital Signs Date Time Temp Pulse Resp B/P (MAP) Pulse Ox O2 Delivery O2 Flow Rate FiO2 12/28/17 08:00 98.0 81 16 171/79 (109) 96 12/28/17 00:00 97.0 81 19 172/87 (115) 95 12/27/17 23:48 18 12/27/17 20:00 97.1 83 19 192/87 (122) 95 12/27/17 16:00 97.8 69 18 177/75 (109) 95 12/27/17 12:00 97.5 72 18 166/78 (107) 97 I/O 12/27/17 12/27/17 12/27/17 12/28/17 12/28/17 12/28/17 06:59 14:59 22:59 06:59 14:59 22:59 Intake Total 240 ml 2400 ml 240 ml Output Total 300 ml Balance 240 ml 2400 ml -60 ml Intake Oral 240 ml 960 ml 240 ml Other 1440 ml Output Urine Total 300 ml # Voids 2 2 # Bowel Movements 5 (Keren Cobb MD R2) Result Diagram: 12/28/17 0520 12/28/17 0520 Objective Remarks GENERAL: Well nourished, well developed male resting comfortably in bed. SKIN: Warm and dry. CARDIOVASCULAR: 2/6 systolic murmur throughout, heard most prominent in the upper left sternal border RESPIRATORY: Decreased breath sounds but clear GASTROINTESTINAL: Abdomen, firm, distended, tender to palpation diffusely, decreased bowel sounds, bowel sounds heard best in the left lower quadrant MUSCULOSKELETAL: Extremities without clubbing, cyanosis, or edema. No obvious deformities. NEUROLOGICAL: Awake and alert. No obvious cranial nerve deficits. Motor grossly within normal limits. Normal speech. PSYCHIATRIC: Appropriate mood and affect; insight and judgment normal. (Keren Cobb MD R2) A/P Assessment and Plan 67-year-old visually impaired male from [facility] with past medical history of dilated cardiomyopathy, CABG in 2016, PVD, hypertension, DM, and hyperlipidemia who presented to the ED for lower abdominal pain and diarrhea, found to have Shigella infection. Admitted for fluids and IV antibiotics. Discharge Planning Pending more clinical improvement, able to tolerate PO nutrition. Home with home health PT. (Keren Cobb MD R2) Attending Attestation Patient examined independently and case discussed with resident physicians I have read the above note and agree with the assessment/plan as discussed with me I was involved in all medical decision making for this patient Gareth Tello MD (Gareth Tello MD) Problem List: (1) Shigella gastroenteritis ICD Codes: A03.9 - Shigellosis, unspecified Status: Acute Plan: Pt felt washing machine tender to palpation on exam and abdomen still distended Continue Rocephin 2g IV Q24H (started 12/25) Continue Flagyl 500 mg p.o. q. 8 (started 12/26-) GI on board -Plan for colonoscopy today Labs & Imaging: Afebrile Lactic acid wnl Blood cultures 12/21 no growth Stool studies positive for Shigella Repeat blood cultures 12/26 showed no growth in 2 days Abdominal/pelvis CT demonstrates nonspecific, nonobstructive bowel gas pattern. There is a cervical pharyngeal wall thickening involving portions of the transverse colon which could indicate colitis. Cholelithiasis with no gallbladder wall thickening or inflammatory change. Repeat abdominal/pelvis CT 12/25-demonstrate segmental colitis involving the transverse colon, distal descending colon and sigmoid colon. Mild ileus with scattered air-fluid levels. Distended gallbladder containing stones. Mild bilateral effusions with mild basilar interstitial congestion. No evidence of suspicious mass or lymphadenopathy. (2) Coronary artery disease ICD Codes: I25.10 - Atherosclerotic heart disease of [place] coronary artery without angina pectoris Status: Chronic Plan: Continue Brilinta Echo with 2D Doppler demonstrates normal left ventricular size. Aortic valve sclerosis is present. Trace tricuspid valve regurg. Pulmonary arterial pressure is 30.3mmHg. Ejection fraction of 60-65% (3) Anemia ICD Codes: D64.9 - Anemia, unspecified Status: Chronic Plan: H&H stable Transfuse if < 7 or if symptomatic (4) Diabetes mellitus ICD Codes: E11.9 - Type 2 diabetes mellitus without complications Status: Chronic Plan: Reports uncontrolled blood sugars at home, ranging in the 500s Held home insulin Low sliding scale A1c 7.9 Continue Levemir 10 units q12h Blood sugars over the past 24 hours, 105, 117, 204, 141, patient has required 0 units of insulin over the past 24 hours. (5) Hypertension ICD Codes: I10 - Essential (primary) hypertension Status: Chronic Plan: Continue lisinopril 40mg BID from 20 mg Continue furosemide 40mg daily Continue carvedilol 12.5mg twice daily Start amlodipine 5 mg p.o. daily Clonidine 0.1 mg as needed for BP>180/100 (6) Hyperlipidemia ICD Codes: E78.5 - Hyperlipidemia, unspecified Status: Chronic Plan: Continue pravastatin 40 mg p.o. daily (7) Depression ICD Codes: F32.9 - Major depressive disorder, single episode, unspecified Status: Chronic Plan: Amitriptyline 150mg PO HS (8) Nutrition, metabolism, and development symptoms ICD Codes: R63.8 - Other symptoms and signs concerning food and fluid intake Status: Acute Plan: Diet diabetic diet as tolerated Fluids: PO hydration Vitals every 4, monitor I's and O's, telemetry DVT ppx: SCDs and Brilinta Seen and examined with Shea Reyes, MS4 (Keren Cobb MD R2) Problem Qualifiers (1) Coronary artery disease: Qualified Codes: I25.119 - Atherosclerotic heart disease of [place] coronary artery with unspecified angina pectoris (2) Anemia: Qualified Codes: D64.89 - Other specified anemias (3) Diabetes mellitus: (4) Hypertension: Qualified Codes: I10 - Essential (primary) hypertension (5) Hyperlipidemia: Qualified Codes: E78.2 - Mixed hyperlipidemia (6) Depression: Qualified Codes: F33.9 - Major depressive disorder, recurrent, unspecified Keren Cobb MD R2 December 28, 2017 09:59 Gareth Tello MD December 28, 2017 16:19
--- NOTE | 2017-12-28 10:00 | GIPROC ---
[facility] [address] [facility]. [facility], [id number] COLONOSCOPY PROCEDURE REPORT EXAM DATE: 12/28/2017 PATIENT NAME: Juan Renner MR #: [id number] BIRTHDATE: 1950 ENDOSCOPIST: Andreina Hawkins MD ORDER #: [id number] MESSENGER COPY: Beau Raymond and Sonia De La Rosa STATUS: inpatient INDICATIONS: The patient is a 67 yr old male here for a colonoscopy due to abdominal pain and change in bowel habits PROCEDURE PERFORMED: Colonoscopy with biopsy MEDICATIONS: None and Per Anesthesia. PREP QUALITY: The Villard Bowel Prep Score was Right colon 3, Mid colon 2, and Left colon 2. Total = 7. PREP TYPE:GoLytely ESTIMATED BLOOD LOSS: None CONSENT: The patient understands the risks and benefits of the procedure and understands that these risks include, but are not limited to: sedation, allergic reaction, infection, perforation and/or bleeding. Alternative means of evaluation and treatment include, among others: physical exam, x-rays, and/or surgical intervention. The patient elects to proceed with this endoscopic procedure. medical equipment was checked for proper function. Hand hygiene and appropriate measures for infection prevention was taken. After the risks, benefits and alternatives of the procedure were thoroughly explained, Informed consent was verified, confirmed and timeout was successfully executed by the treatment team. A digital exam was performed and revealed external hemorrhoids The Pentax [id number] endoscope was introduced through the anus and advanced to the cecum, which was identified by both the appendix and ileocecal valve. The instrument was then slowly withdrawn as the colon was fully examined. COLON FINDINGS: A circumferential diffuse patch of colitis was found in the sigmoid colon and rectum. The mucosa was congested, edematous, erythematous and friable. This is consistent with infectious colitis disease. Multiple biopsies were performed using cold forceps. Retroflexed views revealed internal hemorrhoids and Retroflexed views revealed small internal hemorrhoids The scope was then completely withdrawn from the patient and the procedure terminated. PROCEDURE WITHDRAWAL TIME:7minutes ADVERSE EVENTS: There were no complications. IMPRESSIONS: 1. Circumferential diffuse colitis was found in the sigmoid colon and rectum; The mucosa was congested, edematous, erythematous and friable; This is consistent with infectious colitis.; multiple biopsies were performed using cold forceps 2. Retroflexed views revealed internal hemorrhoids 3. Retroflexed views revealed small internal hemorrhoids 4. Was performed 5. Revealed external hemorrhoids RECOMMENDATIONS: 1. Await biopsy results. Biopsy results will not be ready for 7-10 days. If you don't hear from us in two weeks, call our office for results. 2. Continue surveillance 3. High fiber diet RECALL: Return 1 year Colonoscopy, pending biopsy results Andreina Hawkins MD eSigned: Andreina Hawkins MD 12/28/2017 10:00 AM cc: PATIENT NAME: Juan Renner MR#: [id number]
[2017-12-28] MEDS: amLODIPine BESYLATE 5 MG TAB PO SCH (11:43)
[2017-12-28] MEDS: PRAVASTATIN SOD 40 MG TAB PO SCH (11:43)
[2017-12-28] MEDS: ACETAMINOPHEN/HYDROcodone 325 MG/7.5 MG TAB PO PRN ×2 (11:43→21:12)
[2017-12-28] MEDS: SIMETHICONE 125 MG CHEWABLE TAB PO SCH (11:43)
[2017-12-28] MEDS: TICAGRELOR 90 MG TAB PO SCH ×2 (11:43→21:07)
[2017-12-28] MEDS: CARVEDILOL 12.5 MG TAB PO SCH ×2 (11:43→21:06)
[2017-12-28] MEDS: FUROSEMIDE 40 MG TAB PO SCH (11:44)
[2017-12-28 12:00] VITALS: BP 181/83; PULSE 87; RESP 17; TEMP 97.5; O2SAT 99
[2017-12-28] MEDS ORDERED: PROPOFOL 200 MG/20 ML AMP IV ONE (12:00)
[2017-12-28] MEDS ORDERED: LIDOCAINE HCL 1% PF 5 ML SYRINGE OTHER ONE (12:00)
[2017-12-28] MEDS: cloNIDine HCL 0.1 MG TAB PO PRN (12:51)
[2017-12-28] MEDS ORDERED: POTASSIUM CHLORIDE 25 MEQ EFFERVESCENT TAB PO ONE (13:30)
[2017-12-28] MEDS: cefTRIAXone INJ 2,000 MG in SODIUM CHLORIDE 0.9% INJ 100 ML IV SCH (14:09)
[2017-12-28 16:00] VITALS: BP 157/71; PULSE 77; RESP 16; TEMP 97.7; O2SAT 97
[2017-12-28 20:00] VITALS: BP 179/79; PULSE 86; RESP 20; TEMP 97.9; O2SAT 97
[2017-12-28] MEDS: AMITRIPTYLINE HCL 75 MG TAB PO SCH (21:06)
[2017-12-29] VITALS: BP 153/68; PULSE 83; RESP 18; O2SAT 95
[2017-12-29 04:00] VITALS: BP 158/70; PULSE 82; RESP 18; TEMP 98.2; O2SAT 96
[2017-12-29] MEDS: metroNIDAZOLE 500 MG TAB PO SCH (04:26)
[2017-12-29] MEDS: ACETAMINOPHEN/HYDROcodone 325 MG/7.5 MG TAB PO PRN ×2 (04:28→09:49)
[2017-12-29 05:59] LABS: HEMATOCRIT 25.2 % (39.0-51.0); HEMOGLOBIN 8.6 GM/DL (13.0-17.0); MEAN CELL VOLUME 83.3 FL (80.0-100.0); MEAN CORPUSCULAR HEMOGLOBIN 28.4 PG (27.0-34.0); MEAN CORPUSCULAR HGB CONC 34.1 % (32.0-36.0); MEAN PLATELET VOLUME 9.5 FL (7.0-11.0); PLATELET COUNT 197 TH/MM3 (150-450); RED BLOOD COUNT 3.03 MIL/MM3 (4.50-5.90); RED CELL DISTRIBUTION WIDTH 14.4 % (11.6-17.2); WHITE BLOOD COUNT 6.5 TH/MM3 (4.0-11.0)
[2017-12-29 06:23] LABS: BICARBONATE 24.6 MEQ/L (21.0-32.0); CALCIUM 7.6 MG/DL (8.5-10.1); CREATININE 1.4 MG/DL (0.60-1.30)
[2017-12-29 08:00] VITALS: BP 160/70; PULSE 78; RESP 16; TEMP 97.8; O2SAT 96
--- NOTE | 2017-12-29 08:07 | HHI.FPPN ---
Subjective Remarks No acute events overnight. Patient sitting up on the side of the bed. Son at bedside. Patient states that he slept well. He states that he is no longer having abdominal pain. States that his stools are soft and less watery. He has 2 bowel movements recorded yesterday. He states that his appetite has improved and he is able tolerate heart healthy diet without nausea and vomiting. He denies chest pain, shortness of breath, and fevers. (Rachell Branham MD R1) Objective Vitals Vital Signs Date Time Temp Pulse Resp B/P (MAP) Pulse Ox O2 Delivery O2 Flow Rate FiO2 12/29/17 04:00 98.2 82 18 158/70 (99) 96 12/29/17 00:00 83 18 153/68 (96) 95 12/28/17 20:00 97.9 86 20 179/79 (112) 97 12/28/17 16:00 97.7 77 16 157/71 (99) 97 12/28/17 12:00 97.5 87 17 181/83 (115) 99 12/28/17 10:06 97.9 72 16 151/67 (95) 99 I/O 12/28/17 12/28/17 12/28/17 12/29/17 12/29/17 12/29/17 07:00 15:00 23:00 07:00 15:00 23:00 Intake Total 240 ml 200 ml 840 ml 240 ml Output Total 300 ml 600 ml Balance -60 ml 200 ml 240 ml 240 ml Intake Oral 240 ml 840 ml 240 ml Other 200 ml Output Urine Total 300 ml 600 ml # Voids 3 # Bowel Movements 5 1 1 (Rachell Branham MD R1) Result Diagram: 12/29/17 0416 12/29/17 0416 Objective Remarks GENERAL: Well nourished, well developed male sitting up on the side of the bed SKIN: Warm and dry. CARDIOVASCULAR: 2/6 systolic murmur throughout, heard most prominent in the upper left sternal border RESPIRATORY: Decreased breath sounds but clear GASTROINTESTINAL: Abdomen, soft, mildly distended, nontender tender to palpation , much improved from prior exam, positive BS MUSCULOSKELETAL: Extremities without clubbing, cyanosis, or edema. No obvious deformities. NEUROLOGICAL: Awake and alert. No obvious cranial nerve deficits. Motor grossly within normal limits. Normal speech. PSYCHIATRIC: Appropriate mood and affect; insight and judgment normal. (Rachell Branham MD R1) A/P Assessment and Plan 67-year-old visually impaired male from [facility] with past medical history of dilated cardiomyopathy, CABG in 2016, PVD, hypertension, DM, and hyperlipidemia who presented to the ED for lower abdominal pain and diarrhea, found to have Shigella infection. Admitted for fluids and IV antibiotics. Discharge Planning Anticipate discharge today Home with home health PT. (Rachell Branham MD R1) Attending Attestation Patient examined independently and case discussed with resident physicians I have read the above note and agree with the assessment/plan as discussed with me I was involved in all medical decision making for this patient Gareth Tello MD (Gareth Tello MD) Problem List: (1) Shigella gastroenteritis ICD Codes: A03.9 - Shigellosis, unspecified Status: Acute Plan: Pt abdominal exam improved from prior. Abdomen soft and nontender today. Continue Rocephin 2g IV Q24H (started 12/25-12/29) Continue Flagyl 500 mg p.o. q. 8 (started 12/26-12/29) -We will likely discharge on Levaquin and Flagyl for 14 days GI on board -Colonoscopy done 12/28, demonstrated circumferential diffuse colitis found in the sigmoid colon and rectum. Multiple biopsies were taken. Retroflexed views revealed internal hemorrhoids. Await biopsy results. Biopsy results will not be ready for 7-10 days. High-fiber diet. Labs & Imaging: Afebrile Lactic acid wnl Blood cultures 12/21 no growth Stool studies positive for Shigella Repeat blood cultures 12/26 showed no growth in 2 days Abdominal/pelvis CT demonstrates nonspecific, nonobstructive bowel gas pattern. There is a cervical pharyngeal wall thickening involving portions of the transverse colon which could indicate colitis. Cholelithiasis with no gallbladder wall thickening or inflammatory change. Repeat abdominal/pelvis CT 12/25-demonstrate segmental colitis involving the transverse colon, distal descending colon and sigmoid colon. Mild ileus with scattered air-fluid levels. Distended gallbladder containing stones. Mild bilateral effusions with mild basilar interstitial congestion. No evidence of suspicious mass or lymphadenopathy. (2) Coronary artery disease ICD Codes: I25.10 - Atherosclerotic heart disease of [place] coronary artery without angina pectoris Status: Chronic Plan: Continue Brilinta Echo with 2D Doppler demonstrates normal left ventricular size. Aortic valve sclerosis is present. Trace tricuspid valve regurg. Pulmonary arterial pressure is 30.3mmHg. Ejection fraction of 60-65% (3) Anemia ICD Codes: D64.9 - Anemia, unspecified Status: Chronic Plan: H&H stable Transfuse if < 7 or if symptomatic (4) Diabetes mellitus ICD Codes: E11.9 - Type 2 diabetes mellitus without complications Status: Chronic Plan: Reports uncontrolled blood sugars at home, ranging in the 500s Held home insulin Low sliding scale A1c 7.9 Continue Levemir 10 units q12h (5) Hypertension ICD Codes: I10 - Essential (primary) hypertension Status: Chronic Plan: Continue lisinopril 40mg BID from 20 mg Continue furosemide 40mg daily Continue carvedilol 12.5mg twice daily Continue amlodipine 5 mg p.o. daily Clonidine 0.1 mg as needed for BP>180/100 (6) Hyperlipidemia ICD Codes: E78.5 - Hyperlipidemia, unspecified Status: Chronic Plan: Continue pravastatin 40 mg p.o. daily (7) Depression ICD Codes: F32.9 - Major depressive disorder, single episode, unspecified Status: Chronic Plan: Amitriptyline 150mg PO HS (8) Nutrition, metabolism, and development symptoms ICD Codes: R63.8 - Other symptoms and signs concerning food and fluid intake Status: Acute Plan: Diet diabetic diet as tolerated Fluids: PO hydration Vitals every 4, monitor I's and O's, telemetry DVT ppx: SCDs and Brilinta (Rachell Branham MD R1) Problem Qualifiers (1) Coronary artery disease: Qualified Codes: I25.119 - Atherosclerotic heart disease of [place] coronary artery with unspecified angina pectoris (2) Anemia: Qualified Codes: D64.89 - Other specified anemias (3) Diabetes mellitus: (4) Hypertension: Qualified Codes: I10 - Essential (primary) hypertension (5) Hyperlipidemia: Qualified Codes: E78.2 - Mixed hyperlipidemia (6) Depression: Qualified Codes: F33.9 - Major depressive disorder, recurrent, unspecified Rachell Branham MD R1 December 29, 2017 08:06 Gareth Tello MD December 29, 2017 13:49
[2017-12-29] MEDS ORDERED: INSULIN DETEMIR 100 UNITS/ML VIAL SQ SCH (09:00)
--- NOTE | 2017-12-29 09:19 | HHI.GIFU ---
Subjective Remarks Pt resting in bed, son at bedside Reports tolerating some regular food Some continued lower abdominal pain but is improving some Diarrhea seems to be slowing down Denies nausea, vomiting (Jaylene Rowe) Objective Vitals I&O Vital Signs Date Time Temp Pulse Resp B/P (MAP) Pulse Ox O2 Delivery O2 Flow Rate FiO2 12/29/17 08:00 97.8 78 16 160/70 (100) 96 12/29/17 04:00 98.2 82 18 158/70 (99) 96 12/29/17 00:00 83 18 153/68 (96) 95 12/28/17 20:00 97.9 86 20 179/79 (112) 97 12/28/17 16:00 97.7 77 16 157/71 (99) 97 12/28/17 12:00 97.5 87 17 181/83 (115) 99 12/28/17 10:06 97.9 72 16 151/67 (95) 99 I/O 12/28/17 12/28/17 12/28/17 12/29/17 12/29/17 12/29/17 07:00 15:00 23:00 07:00 15:00 23:00 Intake Total 240 ml 200 ml 840 ml 240 ml Output Total 300 ml 600 ml Balance -60 ml 200 ml 240 ml 240 ml Intake Oral 240 ml 840 ml 240 ml Other 200 ml Output Urine Total 300 ml 600 ml # Voids 3 # Bowel Movements 5 1 1 Laboratory Laboratory Tests Test 12/29/17 04:16 White Blood Count 6.5 Red Blood Count 3.03 Hemoglobin 8.6 Hematocrit 25.2 Mean Corpuscular Volume 83.3 Mean Corpuscular Hemoglobin 28.4 Mean Corpuscular Hemoglobin Concent 34.1 Red Cell Distribution Width 14.4 Platelet Count 197 Mean Platelet Volume 9.5 Blood Urea Nitrogen 9 Creatinine 1.40 Random Glucose 322 Calcium Level 7.6 Sodium Level 141 Potassium Level 3.3 Chloride Level 105 Carbon Dioxide Level 24.6 Anion Gap 11 Estimat Glomerular Filtration Rate 61 Date/Time Source Procedure Growth Status 12/26/17 05:32 Blood Peripheral Aerobic Blood Culture - Preliminary NO GROWTH IN 2 DAYS Resulted 12/26/17 05:32 Blood Peripheral Anaerobic Blood Culture - Preliminary NO GROWTH IN 2 DAYS Resulted 12/21/17 08:45 Stool Stool Cryptosporidium Exam - Final NEGATIVE - NO CRYPTOSPORIDIUM ANTIGEN... Complete 12/21/17 08:45 Stool Stool Stool Pus (KIAN) - Final MODERATE WBC'S Complete 12/21/17 08:45 Stool Stool Giardia Antigen (KIAN) - Final NEGATIVE - NO GIARDIA ANTIGEN DETECTE... Complete Imaging Last Impressions Abdomen X-Ray 12/28/17 0600 Signed Impressions: CONCLUSION: Unremarkable study. Chest X-Ray 12/25/17 0000 Signed Impressions: CONCLUSION: No acute intrathoracic disease. Stable exam. Abdomen/Pelvis CT 12/25/17 0000 Signed Impressions: CONCLUSION: 1. Segmental colitis involving the transverse colon, distal descending colon a nd sigmoid colon. 2. Mild ileus with scattered air-fluid levels. 3. Distended gallbladder containing stones. 4. Mild bilateral effusions with mild basilar interstitial congestion. 5. No evidence of suspicious mass or lymphadenopathy. Physical Exam HEENT: Normocephalic; atraumatic CHEST: Even/unlabored CARDIAC: RRR ABDOMEN: Distended, semi-firm, lower abdominal tenderness, bowel sounds active EXTREMITIES: No lower extremity edema. SKIN: Normal; no rash; no jaundice. [employer]: Alert and oriented (Jaylene Rowe) Assessment and Plan Plan Assessment: - Hematochezia, on Brilinta H/H currently 12.7/37.5 Pt reports diarrhea for the past four days, bloody stools for the past 2 days, multiple episodes, 7 yesterday and 3 so far today. Associated fevers, resolved yesterday. Nausea and emesis, last episode yesterday. Denies hematemesis and coffee ground emesis. Abdominal pain, lower, described as "gas pains", constant. Denies history of GIB Has never had EGD or colonoscopy. Risk factors: Brilinta, also takes ibuprofen occasionally. Recent travel- spent 7 months in [place], returned yesterday C. Diff negative. Rotavirus negative. Denies ETOH and smoking CT abdomen and pelvis W/O IV contrast (12/21) --> Nonspecific, nonobstructive bowel gas pattern. There is circumferential wall thickening involving portion of the transverse colon which could indicate colitis. Cholelithiasis with no gallbladder wall thickening or inflammatory change. Stools positive for Shigella, initially planned EGD and colonoscopy were cancelled and treatment plan focused on treating the Shigella, pt initially on Cipro with no improvement, currently on Flagyl and Rocephin. C Diff and ova and parasites stool negative. (12/26) Improvement in leukocytosis today, pt reports improvement in symptoms Repeat CT abdomen and pelvis W IV contrast (12/25) --> Segmental colitis involving the transverse colon, distal descending colon and sigmoid colon. Mild ileus with scattered air-fluid levels. Distended gallbladder containing stones. KUB (12/25) Gaseous distention of the transverse colon and several loops of small bowel in a nonspecific pattern (12/27) Pt reports some continued improvement in symptoms but still does not feel ready to have his diet advanced past clear liquids. Diarrhea seems to be slowing down, some nausea but not emesis. Some lower abdominal cramping. Also complaining of feeling his abdomen is distended, KUB noted above, Simethicone ordered as needed but according to MAR has not been administered. Colonoscopy (12/28) --> Circumferential diffuse colitis was found in the sigmoid colon and rectum, mucosa was congested, edematous, erythematous and friable, consistent with infectious colitis. Internal and external hemorrhoids. (12/29) Pt reports tolerating regular diet. Diarrhea seems to be slowing down. Still has some lower abdominal pain but states improvement. Afebrile. Plan: Heart healthy diet Colonoscopy biopsies pending Continue antibiotics Monitor labs Continue with current supportive care and management GI will sign off, please reconsult as needed Have pt follow up with GI after DC Pt has been seen and examined by myself and Dr. Hawkins and this note is written on his behalf (Jaylene Rowe) Physician Comments Seen and examined with DISTRIBUTION OPERATIONS MANAGER, s/p colonoscopy with residual colitis. Biopsies-p. Continue antibiotics. GI will sign off. GI fu upon dc. Thank you (Andreina Hawkins MD) Jaylene Rowe December 29, 2017 09:19 Andreina Hawkins MD December 29, 2017 12:52
[2017-12-29] MEDS: LISINOPRIL 20 MG TAB PO SCH (09:48)
[2017-12-29] MEDS: INSULIN ASPART SUPPLEMENTAL SCALE SQ SCH ×2 (09:48→12:58)
[2017-12-29] MEDS: amLODIPine BESYLATE 5 MG TAB PO SCH (09:48)
[2017-12-29] MEDS: SODIUM CHLORIDE 0.9% FLUSH 10 ML FLUSH IV FLUSH SCH (09:49)
[2017-12-29] MEDS: TICAGRELOR 90 MG TAB PO SCH (09:49)
[2017-12-29] MEDS: FUROSEMIDE 40 MG TAB PO SCH (09:49)
[2017-12-29] MEDS: PRAVASTATIN SOD 40 MG TAB PO SCH (09:49)
[2017-12-29] MEDS: CARVEDILOL 12.5 MG TAB PO SCH (09:49)
[2017-12-29 12:00] VITALS: BP 126/59; PULSE 74; RESP 17; TEMP 98.1; O2SAT 96
[2017-12-29] MEDS ORDERED: LEVA750T9 PO (12:15)
[2017-12-29] MEDS ORDERED: METR-1 PO (12:15)
--- NOTE | 2017-12-29 12:26 | HHI.FF ---
Face to Face Verification Diagnosis: (1) Claudication in peripheral vascular disease (2) Diabetes mellitus (3) Shigella gastroenteritis Physical Therapy Order: Evaluate and Treat, Improve ambulation, Strength and gait training Home Health Nursing Order: Medical education Signs/symptoms of disease process Diabetic education Home Health Aide Order: To Assist In: Bathing and personal care, outside maintenance worker and meal prep I have seen patient Juan Renner on 12/29/17. My clinical findings support the need for the requested home health care services because: Ltd mobility - disease progression Deconditioned w/ increased weakness Limited ability to care for self I certify that my clinical findings support that this patient is homebound because: Impaired cognitive ability/safety Unsteady gait/balance Rachell Branham MD R1 December 29, 2017 12:26
[2017-12-29] MEDS ORDERED: WALKER WHEELS/F1 MIS (12:37)
[2017-12-30] MEDS ORDERED: SIMETHICONE 125 MG CHEWABLE TAB PO PRN (09:00)
== END 2017-12-29 14:35 | disposition home health service (06) | DRG 372 ==
LOC: NEPE 01:17 → NEDA 06:47 → N07B 11:22
PROVIDERS: ADMIT Family Medicine; ATTEND Family Medicine
PROC: 0DBP8ZX Excision of Rectum, Via Natural or Artificial Opening Endoscopic, Diagnostic (ICD-10-PCS; 2017-12-28)
PROC: 0DBN8ZX Excision of Sigmoid Colon, Via Natural or Artificial Opening Endoscopic, Diagnostic (ICD-10-PCS; principal; 2017-12-28 09:40)
DX: A03.9 Shigellosis, unspecified (principal); N17.9 Acute kidney failure, unspecified; F05 Delirium due to known physiological condition; I42.0 Dilated cardiomyopathy; I11.0 Hypertensive heart disease with heart failure; I50.9 Heart failure, unspecified; K56.7 Ileus, unspecified; F33.9 Major depressive disorder, recurrent, unspecified; K92.1 Melena; E11.51 Type 2 diabetes mellitus with diabetic peripheral angiopathy without gangrene; I25.10 Atherosclerotic heart disease of native coronary artery without angina pectoris; D64.89 Other specified anemias; E78.2 Mixed hyperlipidemia; E86.0 Dehydration; E87.6 Hypokalemia; H54.8 Legal blindness, as defined in USA; I27.20 Pulmonary hypertension, unspecified; I35.8 Other nonrheumatic aortic valve disorders; K21.9 Gastro-esophageal reflux disease without esophagitis; K64.8 Other hemorrhoids; K80.20 Calculus of gallbladder without cholecystitis without obstruction; Z79.4 Long term (current) use of insulin; Z95.1 Presence of aortocoronary bypass graft; Z79.02 Long term (current) use of antithrombotics/antiplatelets; Z95.5 Presence of coronary angioplasty implant and graft
CPT/HCPCS: 71045; 71046; 74018; 74176; 74177; 76937; 80048; 80053; 81001; 82550; 82948; 83036; 83605; 83690; 83735; 83880; 84132; 84484; 85007; 85014; 85018; 85025; 85027; 85610; 85730; 86850; 86900; 86901; 87040; 87205; 87328; 87329; 87425; 87493; 87506; 88305; 93005; 93306; 94150; 96365; 96366; 96368; 96375; C9113; J0696; J0744; J0780; J1644; J1815; J2270; J2543; J7030; J7040; J7120; Q9963; Q9967